=== PATIENT | male | born 1955 | race Caucasian/White ===

== ENCOUNTER → 2020-01-07 | Outpatient (CLI) | payer MEDICAID, SELFPAY ==
[2020-01-07 18:22] VITALS: BMI 27.4
[2020-01-07 21:46] LABS: Absolute Lymphocyte Count 1.33 X10^3/uL (0.83-4.51); Absolute Neutrophil Count 3.9 X10^3/uL (2.0-7.7); Basophil# 0.02 X10^3/uL; Basophil% 0.3 % (0-1); Eosinophil# 0.27 X10^3/uL; Eosinophils% 4.4 % (0-5); Hematocrit 39.6 % (40-54); Hemoglobin 13.4 g/dL (13.0-16.5); Lymphocyte # 1.33 X10^3/ul (4.0); Lymphocyte % 21.6 % (19-41); Mean Corp Hgb Conc 33.8 g/dL (32-36); Mean Corpuscular Hgb 31.1 pg (27.0-32.0); Mean Corpuscular Volume 91.9 fL (80-94); Mean Platelet Vol. 12.6 fl (6.2-12.0); Monocyte# 0.61 X10^3/uL; Monocyte% 9.9 % (0-10); NRBC Flagged by Analyzer 0 % (0-5); Neutrophil # 3.92 X10^3/uL (2.7-7.7); Neutrophil % 63.6 % (47-70); POSITIVE COUNT YES; Platelet Count 133 K/mm3 (150-450); RBC Distribution Width CV 12.8 % (11.6-14.6); RBC Distribution Width SD 42.8 fl (35.1-43.9); Red Blood Count 4.31 M/mm3 (4.6-6.2); White Blood Count 6.2 K/mm3 (4.4-11.0)
[2020-01-07 21:47] LABS: Differential Indicated SCAN CRITERIA MET
[2020-01-07 21:51] LABS: AST(SGOT) 26 U/L (15-37); Alanine Aminotransfer ALT/SGPT 56 U/L (16-61); Albumin, Serum 3.5 g/dL (3.2-5.0); Alkaline Phosphatase 90 U/L (45-117); Anion Gap 7 (5-15); BUN 16 mg/dL (7-18); BUN/Creat Ratio 11.9 RATIO (10-20); Calcium,Total 8.3 mg/dL (8.5-10.1); Chloride 108 mmol/L (98-107); Cholesterol 111 mg/dL (200); Creatinine, Serum 1.35 mg/dL (0.70-1.30); EST Glomerular Filtration Rate 56 mL/min (>60); Est Glom Filt Rate - Afr Amer 68 mL/min (>60); Globulin 3.6 g/dL (2.2-4.2); Glucose 120 mg/dL (74-106); High Density Lipoprotein 31 mg/dL; PSA,Total - Annual Screen 0.48 ng/mL (0.00-4.00); Potassium 3.7 mmol/L (3.5-5.1); Protein, Total 7.1 g/dL (6.4-8.2); Sodium Level 141 mmol/L (136-145); Triglycerides 252 mg/dL; Very Low Density Lipoprotein 50 mg/dL (5-40)
[2020-01-07 22:38] LABS: Platelet Estimate ADEQUATE (ADEQ)
== END | disposition home or self-care (01) ==
PROVIDERS: Visit Provider Nurse Practitioner
DX: I10 Essential (primary) hypertension (principal); R35.0 Frequency of micturition; G25.81 Restless legs syndrome; Z12.5 Encounter for screening for malignant neoplasm of prostate
CPT/HCPCS: 80053; 80061; 84153; 85025; G0103

== ENCOUNTER 2021-07-17 21:27 | Outpatient (CLI) | payer MEDICARE, MEDICAID, SELFPAY ==
[2021-07-17 21:41] LABS: Absolute Lymphocyte Count 1.96 X10^3/uL (0.83-4.51); Absolute Neutrophil Count 3.1 X10^3/uL (2.0-7.7); Basophil# 0.02 X10^3/uL; Basophil% 0.3 % (0-1); Eosinophil# 0.41 X10^3/uL; Eosinophils% 6.7 % (0-5); Hematocrit 43.3 % (40-54); Hemoglobin 14.8 g/dL (13.0-16.5); Lymphocyte # 1.96 X10^3/ul (0.83-4.51); Lymphocyte % 31.8 % (19-41); Mean Corp Hgb Conc 34.2 g/dL (32-36); Mean Corpuscular Hgb 31.2 pg (27.0-32.0); Mean Corpuscular Volume 91.4 fL (80-94); Mean Platelet Vol. 12.6 fl (6.2-12.0); Monocyte# 0.61 X10^3/uL; Monocyte% 9.9 % (0-10); NRBC Flagged by Analyzer 0 % (0-5); Neutrophil # 3.14 X10^3/uL (2.7-7.7); Platelet Count 131 K/mm3 (150-450); RBC Distribution Width CV 12.5 % (11.6-14.6); RBC Distribution Width SD 41.6 fl (35.1-43.9); Red Blood Count 4.74 M/mm3 (4.6-6.2); White Blood Count 6.2 K/mm3 (4.4-11.0)
[2021-07-17 21:59] LABS: AST(SGOT) 22 U/L (15-37); Alanine Aminotransfer ALT/SGPT 41 U/L (16-61); Albumin, Serum 3.6 g/dL (3.2-5.0); Alkaline Phosphatase 87 U/L (45-117); Anion Gap 6 (5-15); BUN 14 mg/dL (7-18); BUN/Creat Ratio 9.9 RATIO (10-20); Calcium,Total 8.6 mg/dL (8.5-10.1); Chloride 108 mmol/L (98-107); Cholesterol 125 mg/dL (200); Creatinine, Serum 1.41 mg/dL (0.70-1.30); EST Glomerular Filtration Rate 53 mL/min (>60); Est Glom Filt Rate - Afr Amer 65 mL/min (>60); Globulin 3.7 g/dL (2.2-4.2); Glucose 128 mg/dL (74-106); High Density Lipoprotein 35 mg/dL; PSA,Total - Annual Screen 0.51 ng/mL (0.00-4.00); Potassium 4.5 mmol/L (3.5-5.1); Protein, Total 7.3 g/dL (6.4-8.2); Sodium Level 141 mmol/L (136-145); Triglycerides 318 mg/dL; Very Low Density Lipoprotein 64 mg/dL (5-40)
== END 2021-07-17 23:59 | disposition short-term general hospital (02) ==
PROVIDERS: Visit Provider Nurse Practitioner
DX: I15.9 Secondary hypertension, unspecified (principal); R35.0 Frequency of micturition
CPT/HCPCS: 84153; 80053; 80061; 85025; G0103

== ENCOUNTER → 2022-06-14 | Outpatient (CLI) | payer MEDICARE, MEDICAID, SELFPAY ==
[2022-06-14 21:36] LABS: Absolute Lymphocyte Count 1.45 X10^3/uL (0.83-4.51); Absolute Neutrophil Count 3.1 X10^3/uL (2.0-7.7); Basophil# 0.02 X10^3/uL; Basophil% 0.4 % (0-1); Eosinophil# 0.23 X10^3/uL; Eosinophils% 4.3 % (0-5); Hematocrit 34.6 % (40-54); Hemoglobin 11.3 g/dL (13.0-16.5); Lymphocyte # 1.45 X10^3/ul (0.83-4.51); Lymphocyte % 27.3 % (19-41); Mean Corp Hgb Conc 32.7 g/dL (32-36); Mean Corpuscular Hgb 29.7 pg (27.0-32.0); Mean Corpuscular Volume 91.1 fL (80-94); Mean Platelet Vol. 12.2 fl (6.2-12.0); Monocyte% 9.4 % (0-10); NRBC Flagged by Analyzer 0 % (0-5); Neutrophil % 58.4 % (47-70); Platelet Count 135 K/mm3 (150-450); RBC Distribution Width CV 13.7 % (11.6-14.6); RBC Distribution Width SD 45.7 fl (35.1-43.9); White Blood Count 5.3 K/mm3 (4.4-11.0)
[2022-06-14 22:02] LABS: AST(SGOT) 19 U/L (15-37); Alanine Aminotransfer ALT/SGPT 35 U/L (16-61); Albumin, Serum 3.3 g/dL (3.2-5.0); Alkaline Phosphatase 76 U/L (45-117); Anion Gap 7 (5-15); BUN 15 mg/dL (7-18); BUN/Creat Ratio 9.9 RATIO (10-20); Calcium,Total 8.8 mg/dL (8.5-10.1); Chloride 109 mmol/L (98-107); Cholesterol 108 mg/dL (200); Creatinine, Serum 1.52 mg/dL (0.70-1.30); EST Glomerular Filtration Rate 49 mL/min (>60); Est Glom Filt Rate - Afr Amer 59 mL/min (>60); Globulin 3.2 g/dL (2.2-4.2); Glucose 139 mg/dL (74-106); High Density Lipoprotein 35 mg/dL; Potassium 3.9 mmol/L (3.5-5.1); Protein, Total 6.5 g/dL (6.4-8.2); Sodium Level 142 mmol/L (136-145); Triglycerides 262 mg/dL; Very Low Density Lipoprotein 52 mg/dL (5-40)
== END | disposition home or self-care (01) ==
PROVIDERS: Visit Provider Nurse Practitioner
DX: I10 Essential (primary) hypertension (principal); I48.91 Unspecified atrial fibrillation; E78.5 Hyperlipidemia, unspecified; J45.909 Unspecified asthma, uncomplicated; J11.1 Influenza due to unidentified influenza virus with other respiratory manifestations; R07.9 Chest pain, unspecified
CPT/HCPCS: 80053; 80061; 83735; 85025

== ENCOUNTER 2023-05-13 21:48 | Outpatient (CLI) | payer MEDICARE, SELFPAY ==
[2023-05-13 22:02] LABS: Absolute Lymphocyte Count 1.65 X10^3/uL (0.83-4.51); Absolute Neutrophil Count 3.5 X10^3/uL (2.0-7.7); Basophil# 0.03 X10^3/uL; Basophil% 0.5 % (0-1); Eosinophil# 0.32 X10^3/uL; Eosinophils% 5.2 % (0-5); Hematocrit 42.4 % (40-54); Hemoglobin 13.8 g/dL (13.0-16.5); Lymphocyte # 1.65 X10^3/ul (0.83-4.51); Lymphocyte % 26.9 % (19-41); Mean Corp Hgb Conc 32.5 g/dL (32-36); Mean Platelet Vol. 12.9 fl (6.2-12.0); Monocyte# 0.61 X10^3/uL; Monocyte% 9.9 % (0-10); NRBC Flagged by Analyzer 0 % (0-5); Neutrophil # 3.52 X10^3/uL (2.7-7.7); Neutrophil % 57.3 % (47-70); Platelet Count 124 K/mm3 (150-450); RBC Distribution Width CV 14.1 % (11.6-14.6); RBC Distribution Width SD 43.8 fl (35.1-43.9); Red Blood Count 4.93 M/mm3 (4.6-6.2); White Blood Count 6.1 K/mm3 (4.4-11.0)
[2023-05-13 22:26] LABS: ALB/GLOB Ratio 0.9 RATIO (0.9-2.4); AST(SGOT) 22 U/L (15-37); Alanine Aminotransfer ALT/SGPT 37 U/L (16-61); Albumin, Serum 3.5 g/dL (3.2-5.0); Alkaline Phosphatase 91 U/L (45-117); Anion Gap 6 (5-15); BUN 14 mg/dL (7-18); BUN/Creat Ratio 11.1 RATIO (10-20); Calcium,Total 8.4 mg/dL (8.5-10.1); Chloride 109 mmol/L (98-107); Cholesterol 93 mg/dL (200); Creatinine, Serum 1.26 mg/dL (0.70-1.30); EST Glomerular Filtration Rate 61 mL/min (>60); Est Glom Filt Rate - Afr Amer 73 mL/min (>60); Ferritin 13 ng/mL (26-388); Globulin 3.8 g/dL (2.2-4.2); Glucose 128 mg/dL (74-106); High Density Lipoprotein 37 mg/dL; Iron Binding Capacity,Total 337 ug/dL (250-450); PSA,Total - Annual Screen 0.54 ng/mL (0.00-4.00); Protein, Total 7.3 g/dL (6.4-8.2); Sodium Level 138 mmol/L (136-145); Thyroid Stim Hormone (TSH) 1.06 uIU/mL (0.358-3.74); Triglycerides 178 mg/dL; Very Low Density Lipoprotein 36 mg/dL (5-40)
[2023-05-14 08:22] LABS: Vitamin B12 629 pg/mL (211-911)
== END 2023-05-13 23:59 | disposition home or self-care (01) ==
PROVIDERS: PCP Nurse Practitioner; Visit Provider Nurse Practitioner
DX: Z12.5 Encounter for screening for malignant neoplasm of prostate (principal); I48.91 Unspecified atrial fibrillation; J11.1 Influenza due to unidentified influenza virus with other respiratory manifestations; E78.5 Hyperlipidemia, unspecified; I10 Essential (primary) hypertension; D64.9 Anemia, unspecified; R35.0 Frequency of micturition; R07.9 Chest pain, unspecified
CPT/HCPCS: 80053; 80061; 82607; 82728; 83550; 84153; 84443; 85025; G0103

== ENCOUNTER → 2023-08-22 | Outpatient (CLI) | payer MEDICARE, MEDICAID, SELFPAY ==
--- OUTSIDE RECORDS SUMMARY | 2023-08-22 23:01 | XMS RPT_ITS | CCD ---
Author Name Unknown Address [address] [place] [address] Organization [facility] Care Team Providers Care Fitness And Wellness Manager Name Role Phone Brittany Rodríguez Unavailable Unavailable PROVIDER, UNKNOWN Unavailable Unavailable Vero Green Unavailable Unavailable Marcelo Fritz MD Unavailable Norma ASSISTANT WOMEN'S TENNIS COACH.Vero BARROSO Primary Care Provide r VERO GREEN Primary Care Unavailable BRUCE CARROLL Admitting Unavailable DUSTIN HALE Attending Unavailable DOMINICK AVENDAÑO III UnavailMICAELA Velazquez Attending Unavailable MARIA EUGENIA GREENA Sheela Primary Care Unavailable DAVID ZENDEJAS Attending Unavailable MARIA EUGENIA GREENA Sheela Primary Care Unavailable NORMA VERO Sheela Primary Care Unavailable ALVA GARCIA Attending Unavailduarte reese Allergies Allergy Classification Reported Allergen(s) Allergy Type Date of Onset Reaction(s) Facility (5 sources) Clindamycin; Translations: [CLINDAMYCIN] Drug Allergy 12-25-2022 Shortness of Breath [facility] (5 sources) HYDROmorphone; Translations: [HYDROMORPHONE (BULK)] Drug Allergy 06-15-2017 Shortness of Breath [facility] Work Phone: (5 sources) Lisinopril; Translations: [LISINOPRIL] Drug Allergy 01-06-2020 Cough [facility] Work Phone: Medications Current Medications Medication Drug Class(es) Dates Sig (Normalized) Sig (Original) cefdinir 300 mg oral capsule (1 source) Cephalosporin Antibacterial Start: 12-29-2022 End: 01-12-2023 take 1 capsule by mouth twice daily cefdinir (OMNICEF) 300 mg capsule Take 1 capsule by mouth twice daily for 14 days. 28 capsule 0 12/29/2022 01/12/2023 Active Completed/Discontinued Medications Medication Drug Class(es) Dates Sig (Normalized) Sig (Original) acetaminophen 325 mg oral tablet (2 sources) Start: 12-29-2022 take 2 tablets by mouth every six hours as needed acetaminophen (TYLENOL) 325 mg tablet Take 2 tablets by mouth every 6 hours as needed for pain. 0 12/29/2022 Active Problems Active Problems Problem Classification Problem Date Documented Date Episodic/Chronic Acute myocardial infarction (3 sources) Myocardial infarction; Translations: [ST elevation (STEMI) myocardial infarction of unspecified site] Onset: 11-21-2019 02-10-2020 Chronic Allergic reactions (1 source) Allergy, unspecified, initial encounter; Translations: [Allergic reaction, initial encounter] Onset: 12-25-2022 Episodic Asthma (6 sources) Exacerbation of intermittent asthma; Translations: [Mild intermittent asthma with (acute) exacerbation] Onset: 06-14-2017 06-25-2017 Chronic Cardiac dysrhythmias (6 sources) Atrial flutter; Translations: [Unspecified atrial flutter] Onset: 06-25-2017 08-19-2017 Chronic Complication of device; implant or graft (3 sources) Altered bowel function; Translations: [Other complications of enterostomy] Onset: 08-20-2017 08-24-2017 Chronic Disorders of lipid metabolism (3 sources) Pure hypercholesterolemia; Translations: [Pure hypercholesterolemia, unspecified] Onset: 11-25-2019 02-10-2020 Chronic Diverticulosis and diverticulitis (3 sources) Diverticulitis of large intestine; Translations: [Diverticulitis of large intestine without perforation or abscess without bleeding] Onset: 06-14-2017 08-20-2017 Chronic Inflammatory conditions of male genital organs (5 sources) Abscess of scrotum; Translations: [Inflammatory disorders of scrotum] Onset: 12-25-2022 01-14-2023 Episodic Nutritional deficiencies (3 sources) Deficiency of macronutrients; Translations: [Unspecified severe protein-calorie malnutrition] Onset: 07-30-2017 08-20-2017 Chronic Other connective tissue disease (3 sources) Necrotizing fasciitis; Translations: [Necrotizing fasciitis] Onset: 12-26-2022 12-26-2022 Episodic Other connective tissue disease (1 source) Necrotizing fasciitis; Translations: [Necrotizing fasciitis (HCC)] Onset: 12-26-2022 Episodic Other connective tissue disease (1 source) Other specified soft tissue disorders; Translations: [Necrotizing soft tissue infection] Onset: 12-26-2022 Episodic Other lower respiratory disease (1 source) Wheezing; Translations: [Wheezing] Onset: 12-25-2022 Episodic Other upper respiratory disease (1 source) Acute bronchospasm; Translations: [Bronchospasm] Onset: 12-25-2022 Episodic Spondylosis; intervertebral disc disorders; other back problems (2 sources) Spondylosis, unspecified; Translations: [Spondylosis, unspecified] Onset: 06-11-2017 Chronic Substance-related disorders (5 sources) Nicotine dependence, cigarettes, uncomplicated; Translations: [Nicotine dependence] Onset: 06-11-2017 08-19-2017 Chronic Unclassified (2 sources) Acute pancreatitis without necrosis or infection, unspecified; Translations: [Acute pancreatitis without necrosis or infection, unsp] Onset: 06-11-2017 Past or Other Problems Problem Classification Problem Date Documented Da te Episodic/Chronic Acute and unspecified renal failure (3 sources) Acute injury of kidney; Translations: [Acute kidney failure, unspecified] Onset: 8 08-19-2017 Episodic Anal and rectal conditions (3 sources) Rectal pain; Translations: [Other specified diseases of anus and rectum] Onset: 7 06-26-2017 Episodic Biliary tract disease (3 sources) Recurrent biliary colic; Translations: [Calculus of bile duct without cholangitis or cholecystitis without obstruction] Onset: 8 08-22-2017 Episodic Deficiency and other anemia (3 sources) Anemia; Translations: [Anemia, unspecified] Onset: 8 08-30-2017 Episodic Diabetes mellitus without complication (6 sources) Hyperglycemia; Translations: [Hyperglycemia, unspecified] Onset: 8 08-24-2017 Episodic Fluid and electrolyte disorders (6 sources) Dehydration; Translations: [Dehydration] Onset: 8 07-30-2017 Episodic Gastrointestinal hemorrhage (6 sources) Gastrointestinal hemorrhage, unspecified; Translations: [Hematemesis] Onset: 7 Episodic Mycoses (3 sources) Candidiasis of mouth and esophagus; Translations: [Candidal esophagitis] Onset: 8 07-25-2017 Episodic Other screening for suspected conditions (not mental disorders or infectious disease) (3 sources) Other specified abnormal findings of blood chemistry; Translations: [Other abnormal blood chemistry] Onset: 8 08-19-2017 Episodic Residual codes; unclassified (3 sources) Tobacco user; Translations: [Tobacco use] Onset: 0 11-23-2019 Episodic Viral infection (3 sources) Herpes simplex; Translations: [Herpesviral infection, unspecified] Onset: 8 08-03-2017 Episodic Results Test Name Value Interpretation Reference Range Facil ity Vital Signs Date Time Vital Sign Value Performing Clinician Yana steward 01-14-2023 11:06-0400 Body height 185.4 cm David Zendejas MD Work Phone: [facility] 01-14-2023 11:06-0400 Diastolic blood pressure 77 mm[Hg] David Zendejas MD Work Phone: [facility] 01-14-2023 11:06-0400 Respiratory rate 18 /min David Zendejas MD Work Phone: [facility] 01-14-2023 11:06-0400 Systolic blood pressure 132 mm[Hg] David Zendejas MD Work Phone: [facility] Encounters Encounter Date Encounter Type Care Provider Facility Start: 01-14-2023 End: 01-14-2023 ambulatory DAVID ZENDEJAS Facility:[facility] Start: 01-14-2023 End: 01-14-2023 Patient encounter procedure David Zendejas MD Work Phone: [facility] Plan of Treatment Date Care Activity Detail Author Start: 12-29-2025 DIABETES SCREEN DIABETES SCREEN [facility] Start: 12-28-2025 DIABETES SCREEN DIABETES SCREEN [facility] Start: 11-20-2024 LIPID SCREEN LIPID SCREEN [facility] Start: 03-01-2023 Influenza vaccination C [facility] Start: 08-21-2022 COLORECTAL CANCER SCREENING COLORECTAL CANCER SCREENING [facility] Start: 08-21-2022 SIGMOIDOSCOPY SIGMOIDOSCOPY [facility] Start: 07-01-2022 ADVANCE DIRECTIVE DISCUSSION ADVANCE DIRECTIVE DISCUSSION [facility] Start: 07-01-2022 DEPRESSION ASSESSMENT DEPRESSION ASS ESSMENT [facility] Start: 2010 PROSTATE CANCER SCRE ENING DISCUSSION PROSTATE CANCER SCREENING DISCUSSION [facility] Start: 2005 SHINGRIX VACCINE (1 of 2) SHINGRIX V ACCINE (1 of 2) [facility] Start: 2000 COLOGUARD (FIT-DNA) COLOGUARD (FIT-D NA) [facility] Start: 2000 Colonoscopy COLONOSCOPY [facility] Start: [address] COLONOGRAPHY [facility] Start: 2000 FECAL OCCULT BLOOD FECAL OCCULT BLOO D [facility] Start: 1974 Urine microalbumin profile DTAP,TDAP ,TD (1 - Tdap) [facility] Start: 1973 ANNUAL PCP TEAM SUPERVISOR CEREAL JACY DISEASE VISIT ANNUAL PCP TEAM CHRONIC DISEASE VISIT [facility] Start: 1973 SPIROMETRY SPIROMETRY [facility] Start: 1961 PNEUMOCOCCAL: 65+ (1 - PCV) PNEUMOCOCCAL: 65+ (1 - PCV) [facility] Start: 1955 COVID-19 VACCINE (#1) COVID-19 VACCI NE (#1) [facility] Start: 1955 ABDOMINAL AORTIC ANE URYSM SCREENING ABDOMINAL AORTIC ANEURYSM SCREENING [facility] Payers Date Payer Category Payer Medicare [facility] MEDICARE [facility] DUAL COMPLETE HMO POS SNP [id number] 2022-Present [phone] [address] [place] [address] Medicare [id number] 2022 Unknown [id number] 2020 Medicaid MEDICAID [facility] MEDICAID [id number] 2020-Present [phone] [address] [place] [address] Medicaid [id number] Self-pay Social History Date Type Detail Facility Start: [facility]-04-2021 [facility] Work Phone: History of tobacco use Cigarette Smoker C [facility] Work Phone: Start: 01-04-2021 End: 12-26-2022 Cigarettes smoked current (pack per day) - Reported 0.1 [facility] Work Phone: Start: 01-04-2021 Tobacco use and exposure Smokeless tobacco non-user [facility] Work Phone: Start: 12-26-2022 End: 01-14-2023 Alcohol intake Current non-drinker of alcohol (finding) [facility] Start: 11-24-2019 History SDOH Financial 5 [facility] Start: 07-05-2017 Tobacco [facility] Start: 1955 Sex Assigned At Male C [facility] Start: 12-26-2022 End: 01-14-2023 Tobacco use panel [facility] Work Phone: How hard is it for y ou to pay for the very basics like food, housing, medical care, and heating Not hard at all [facility] Work Phone: (I/We) worried whe er (my/our) food would run out before (I/we) got money to buy more. DK or Refused [facility] Work Phone: Clinical Notes 08-20-2017 to 01-14-2023 David Zendejas MD - 01/14/2023 11:15 AM EDTTelephone Encounter - Arely Durán Coord - 01/02/2023 10:07 AM EDTTelephone Encounter - Arely Durán Coord - 01/02/2023 9:50 AM EDT Note Date & Type Note Facility 01-14-2023 Note HNO ID: [id number] Author: David Zendejas MD Service: ? Author Type: Physician Type: Progress Notes Filed: 01/14/2023 11:26 AM Note Text: [facility] ESTABLISHED PATIENT NOTE PATIENT: Teofilo Maxwell (67 year old) PCP: Vero Green APRN.ADVISORY SERVICES ASSOCIATE DATE OF SERVICE: 01/14/2023 ASSESSMENT: 1. Scrotal abscess - ICD9: 608.4, ICD10: N49.2 Surgery/Procedure Date: 12/26/2022 Procedure(s): Excisional debridement scrotal necrotizing fasciitis and drainage scrotal abscess PLAN: Drains are out. Wound closing. No necrosis, eschar or fluctuance. They are having trouble keeping packing as the wound is closing. Discussed findings. Okay to move to BID topical gauze dressing changes. We discussed concerning signs and symptoms and patient knows to report these immediately. If unable to reach their urologist, patient knows to report to emergency department for evaluation. Follow up as needed. FOLLOW UP: No follow-ups on file. CHIEF COMPLAINT: Patient presents with: scrotal abcess HISTORY OF PRESENT ILLNESS: Prior notes were reviewed. The patient reports he feels well. He states the packing has been falling out. No fevers. REVIEW OF SYSTEMS: Genitourinary: Denies hematuria, dysuria, frequency, urgency, nocturia, YO, weak stream. Constitutional: unintentional weight loss - denies, fevers - denies Cardiovascular: new or worsening chest pain - denies Respiratory: new or worsening shortness of breath - denies Gastrointestinal: constipation - denies, vomiting - denies Hematologic/Lymphatic: easy bleeding or bruising - denies ALLERGIES: ALLERGIES Allergen Reactions Clindamycin Shortness of Breath Dilaudid [Hydromorp* Shortness of Breath Lisinopril Cough MEDICATIONS: Non-Adherent Bandage (CURITY ABDOMINAL PAD) 5 X 9 bndg Apply 1 application to affected area twice daily. Gauze Bandage (KERLIX) 2 1/4 X 3 -yard bndg Apply 1 application to affected area twice daily. Sodium Chloride 0.9 % soln 1 Units twice daily. Scrotum- cleanse area with N.S. or wound cleanser prior to dressing change. Pack open wounds with N.S. soaked kerlix and cover with ABD pads twice daily . then use mesh pants to hold dressing in place twice daily and as needed for soiling. acetaminophen (TYLENOL) 325 mg tablet Take 2 tablets by mouth every 6 hours as needed for pain. apixaban (ELIQUIS) 5 mg tab(s) Take 1 tablet by mouth twice daily. rOPINIRole (REQUIP) 1 mg tablet Take 1 mg by mouth every evening. Cyanocobalamin 1,000 mcg TbER Take by mouth once daily. Lactobac no.41/Bifidobact no.7 (PROBIOTIC-10 ORAL) Take by mouth once daily. metoprolol succinate ER (TOPROL XL) 25 mg 24 hr tablet Take 1 tablet by mouth once daily. atorvastatin (LIPITOR) 80 mg tablet Take 1 tablet by mouth once daily. albuterol HFA (PROVENTIL HFA, VENTOLIN HFA) 90 mcg/actuation inhaler Inhale 2 Puffs as instructed every 4 hours as needed for wheezing/shortness of breath. psyllium husk, with sugar, (METAMUCIL) 3.4 gram packet Take 1 Packet by mouth every evening. [DISCONTINUED] nicotine (NICODERM) 14 mg/24 hr Apply 1 Patch as directed once daily. PAST HISTORY: PAST MEDICAL HISTORY Diagnosis Date Asthma Diverticulitis of intestine with perforation 06/19/2017 H/O heart artery stent HLD (hyperlipidemia) Paroxysmal A-fib (HCC) RLS (restless legs syndrome) STEMI (ST elevation myocardial infarction) ([facility]) PAST SURGICAL HISTORY Procedure Laterality Date PAST SURGICAL HISTORY OF 06/19/2017 laparoscopic sigmoid resection, (Dr. Isaac) PAST SURGICAL HISTORY OF OM3 lesion was stented using a 2.5X23 Xience megha and Proximal LCx was stented using a 3X18 Xience megha on 11/21/2019. FAMILY HISTORY Problem Relation Age of Onset Heart Mother Kidney Disease Mother other (heart attack at age 67) Mother other (valve replacement) Mother other (unknown history) Father Social History Tobacco Use Smoking status: Every Day Packs/day: 0.10 Types: Cigarettes Smokeless tobacco: Never Tobacco comments: quit in [facility] home Vaping Use Vaping Use: Never used Substance Use Topics Alcohol use: No Drug use: Not Currently Types: Marijuana PHYSICAL EXAMINATION: BP 132/77 Resp 18 Ht 185.4 cm (6' 1 ) BMI 28.04 kg/m? Genitourinary: Posterior scrotal surgical wound. No necrosis, eschar or fluctuance. Healthy, viable healing tissue with only 1 cm of wound depth. Constitutional: In no acute distress. Well appearing. Respiratory: Normal respiratory effort without use of accessory muscles. Musculoskeletal: Normal gait and station Cardiovascular: Regular rate Gastrointestinal: Nondistended DATA: Clinic: URINALYSIS: No results found for this basename: uglucpoc,ubilipoc,uketonpoc,usgp oc,uhbpoc,uphpoc,upropoc,uuropoc ,unitpoc,uw bcpoc,ucolpoc,uclarpoc Laboratory: Creatinine Date Value Ref Range Status 12/29/2022 1.21 0.73 - 1.22 m (more content not included)... [facility] 01-14-2023 History of Presen t illness Narrative [facility] ESTABLISHED PATIENT NOTE PATIENT: Teofilo Maxwell (67 year old) PCP: Vero Green APRN.ADVISORY SERVICES ASSOCIATE DATE OF SERVICE: 01/14/2023 ASSESSMENT: 1. Scrotal abscess - ICD9: 608.4, ICD10: N49.2 Surgery/Procedure Date: 12/26/2022 Procedure(s): Excisional debridement scrotal necrotizing fasciitis and drainage scrotal abscess PLAN: Drains are out. Wound closing. No necrosis, eschar or fluctuance. They are having trouble keeping packing as the wound is closing. Discussed findings. Okay to move to BID topical gauze dressing changes. We discussed concerning signs and symptoms and patient knows to report these immediately. If unable to reach their urologist, patient knows to report to emergency department for evaluation. Follow up as needed. FOLLOW UP: No follow-ups on file. CHIEF COMPLAINT: Patient presents with: scrotal abcess HISTORY OF PRESENT ILLNESS: Prior notes were reviewed. The patient reports he feels well. He states the packing has been falling out. No fevers. REVIEW OF SYSTEMS: Genitourinary: Denies hematuria, dysuria, frequency, urgency, nocturia, YO, weak stream. Constitutional: unintentional weight loss - denies, fevers - denies Cardiovascular: new or worsening chest pain - denies Respiratory: new or worsening shortness of breath - denies Gastrointestinal: constipation - denies, vomiting - denies Hematologic/Lymphatic: easy bleeding or bruising - denies ALLERGIES: ALLERGIES Allergen Reactions Clindamycin Shortness of Breath Dilaudid [Hydromorp* Shortness of Breath Lisinopril Cough MEDICATIONS: Non-Adherent Bandage (CURITY ABDOMINAL PAD) 5 X 9 bndg Apply 1 application to affected area twice daily. Gauze Bandage (KERLIX) 2 1/4 X 3 -yard bndg Apply 1 application to affected area twice daily. Sodium Chloride 0.9 % soln 1 Units twice daily. Scrotum- cleanse area with N.S. or wound cleanser prior to dressing change. Pack open wounds with N.S. soaked kerlix and cover with ABD pads twice daily . then use mesh pants to hold dressing in place twice daily and as needed for soiling. acetaminophen (TYLENOL) 325 mg tablet Take 2 tablets by mouth every 6 hours as needed for pain. apixaban (ELIQUIS) 5 mg tab(s) Take 1 tablet by mouth twice daily. rOPINIRole (REQUIP) 1 mg tablet Take 1 mg by mouth every evening. Cyanocobalamin 1,000 mcg TbER Take by mouth once daily. Lactobac no.41/Bifidobact no.7 (PROBIOTIC-10 ORAL) Take by mouth once daily. metoprolol succinate ER (TOPROL XL) 25 mg 24 hr tablet Take 1 tablet by mouth once daily. atorvastatin (LIPITOR) 80 mg tablet Take 1 tablet by mouth once daily. albuterol HFA (PROVENTIL HFA, VENTOLIN HFA) 90 mcg/actuation inhaler Inhale 2 Puffs as instructed every 4 hours as needed for wheezing/shortness of breath. psyllium husk, with sugar, (METAMUCIL) 3.4 gram packet Take 1 Packet by mouth every evening. [DISCONTINUED] nicotine (NICODERM) 14 mg/24 hr Apply 1 Patch as directed once daily. PAST HISTORY: PAST MEDICAL HISTORY Diagnosis Date Asthma Diverticulitis of intestine with perforation 06/19/2017 H/O heart artery stent HLD (hyperlipidemia) Paroxysmal A-fib (HCC) RLS (restless legs syndrome) STEMI (ST elevation myocardial infarction) ([facility]) PAST SURGICAL HISTORY Procedure Laterality Date PAST SURGICAL HISTORY OF 06/19/2017 laparoscopic sigmoid resection, (Dr. Isaac) PAST SURGICAL HISTORY OF OM3 lesion was stented using a 2.5X23 Xience megha and Proximal LCx was stented using a 3X18 Xience megha on 11/21/2019. FAMILY HISTORY Problem Relation Age of Onset Heart Mother Kidney Disease Mother other (heart attack at age 67) Mother other (valve replacement) Mother other (unknown history) Father Social History Tobacco Use Smoking status: Every Day Packs/day: 0.10 Types: Cigarettes Smokeless tobacco: Never Tobacco comments: quit in [facility] home Vaping Use Vaping Use: Never used Substance Use Topics Alcohol use: No Drug use: Not Currently Types: Marijuana PHYSICAL EXAMINATION: BP 132/77 Resp 18 Ht 185.4 cm (6' 1 ) BMI 28.04 kg/m Genitourinary: Posterior scrotal surgical wound. No necrosis, eschar or fluctuance. Healthy, viable healing tissue with only 1 cm of wound depth. Constitutional: In no acute distress. Well appearing. Respiratory: Normal respiratory effort without use of accessory muscles. Musculoskeletal: Normal gait and station Cardiovascular: Regular rate Gastrointestinal: Nondistended DATA: Clinic: URINALYSIS: No results found for this basename: uglucpoc,ubilipoc,uketonpoc,usgp oc,uhbpoc,uphpoc,upropoc,uuropoc ,unitpoc,uwbcpoc,ucolpoc,uclarpo c Laboratory: Creatinine Date Value Ref Range Status 12/29/2022 1.21 0.73 - 1.22 mg/dL Final 12/28/2022 1.38 (H) 0.73 - 1.22 mg/dL Final 12/27/2022 1.24 (H) 0.73 - 1.22 mg/dL Final 12/25/2022 1.41 (H) 0.73 - 1.22 mg/dL Final Cultures: Culture Results - Past 1 Year CULTURE SMEAR RESULT 12/25/2022 No growth 5 days - 12/25/2022 No growth 5 days - 12/26/2022 - Many Gram positive bacilli(A) 12/26/2022 - Moderate Gram positive cocci(A) 12/26/2022 - Moderate Gram negative bacilli(A) 12/26/2022 - Few Polymorphonuclear leukocytes(A) 12/26/2022 - Moderate Red Blood Cells(A) Some recent data might be hidden Susceptibility Tests - Past 1 Year No results found for the last 365 days. I have reviewed the problem list, family history, and social history documented by my ancillary staff. David Zendejas MD Staff Urologist documented in this encounter [facility] 01-04-2023 Note HNO ID: [id number] Author: Micaela Vee PA-C Service: ? Author Type: Physician Airline Lounge Receptionist Type: Progress Notes Filed: 01/04/2023 11:39 AM Note Text: ESTABLISHED PATIENT OFFICE VISIT HISTORY OF PRESENT ILLNESS: Teofilo Maxwell is a 67 year old male, Ht 185.4 cm (6' 1 ) BMI 28.04 kg/m2 with a PMH significant for drain removal. Pt is s/p scrotal debridement secondary to necrotizng fascitis. Pt is still on antibiotics, tolerating them well. is doing packing of wound. . LAB: Creatinine Date Value Ref Range Status 12/29/2022 1.21 0.73 - 1.22 mg/dL Final No results found for: PSA Glucose, Urine (mg/dL) Date Value 11/22/2019 1+ Bilirubin, Urine (no units) Date Value 11/22/2019 Negative Ketones, Urine (no units) Date Value 11/22/2019 Trace Specific Ridge, Ur (no units) Date Value 11/22/2019 >1.045 Hemoglobin/Blood,Ur ( ) Date Value 11/22/2019 Negative pH, Urine (no units) Date Value 11/22/2019 5.0 Protein, Urine (no units) Date Value 11/22/2019 1+ Nitrites (no units) Date Value 11/22/2019 Negative WBC, Urine (/HPF) Date Value 11/22/2019 0-5 MEDICATIONS: Non-Adherent Bandage (CURITY ABDOMINAL PAD) 5 X 9 bndg Apply 1 application to affected area twice daily. Gauze Bandage (KERLIX) 2 1/4 X 3 -yard bndg Apply 1 application to affected area twice daily. Sodium Chloride 0.9 % soln 1 Units twice daily. Scrotum- cleanse area with N.S. or wound cleanser prior to dressing change. Pack open wounds with N.S. soaked kerlix and cover with ABD pads twice daily . then use mesh pants to hold dressing in place twice daily and as needed for soiling. acetaminophen (TYLENOL) 325 mg tablet Take 2 tablets by mouth every 6 hours as needed for pain. apixaban (ELIQUIS) 5 mg tab(s) Take 1 tablet by mouth twice daily. metroNIDAZOLE (FLAGYL) 500 mg tablet Take 1 tablet by mouth every 8 hours for 14 days. cefdinir (OMNICEF) 300 mg capsule Take 1 capsule by mouth twice daily for 14 days. rOPINIRole (REQUIP) 1 mg tablet Take 1 mg by mouth every evening. Cyanocobalamin 1,000 mcg TbER Take by mouth once daily. Lactobac no.41/Bifidobact no.7 (PROBIOTIC-10 ORAL) Take by mouth once daily. atorvastatin (LIPITOR) 80 mg tablet Take 1 tablet by mouth once daily. albuterol HFA (PROVENTIL HFA, VENTOLIN HFA) 90 mcg/actuation inhaler Inhale 2 Puffs as instructed every 4 hours as needed for wheezing/shortness of breath. psyllium husk, with sugar, (METAMUCIL) 3.4 gram packet Take 1 Packet by mouth every evening. oxyCODONE-acetaminophen (PERCOCET) 5-325 mg tablet Take 1 tablet by mouth every 8 hours as needed for pain for up to 7 days. metoprolol succinate ER (TOPROL XL) 25 mg 24 hr tablet Take 1 tablet by mouth once daily. [DISCONTINUED] nicotine (NICODERM) 14 mg/24 hr Apply 1 Patch as directed once daily. Bifidobacterium Infantis (ALIGN) 4 mg cap Take by mouth. Review of Systems HISTORIES PAST MEDICAL HISTORY Diagnosis Date Asthma Diverticulitis of intestine with perforation 06/19/2017 H/O heart artery stent HLD (hyperlipidemia) Paroxysmal A-fib (HCC) RLS (restless legs syndrome) STEMI (ST elevation myocardial infarction) ([facility]) FAMILY HISTORY Problem Relation Age of Onset Heart Mother Kidney Disease Mother other (heart attack at age 67) Mother other (valve replacement) Mother other (unknown history) Father Social History Tobacco Use Smoking status: Every Day Packs/day: 0.10 Types: Cigarettes Smokeless tobacco: Never Tobacco comments: quit in [facility] and home Vaping Use Vaping Use: Never used Substance Use Topics Alcohol use: No Drug use: Not Currently Types: Marijuana PHYSICAL EXAMINATION GENERAL APPEARANCE: Well appearing, alert, in no acute distress, well-hydrated, well nourished. Genitourinary: MALE EXAM: drain removal, wounds cleansed with aneseptic, sutures removed, drains removed, wounds packed with 4x4 soaked in sterile water, pt tolerated procedure well. ASSESSMENT/PLAN: 1. Necrotizing fasciitis (HCC) - ICD9: 728.86, ICD10: M72.6 - OXYCODONE-ACETAMINOPHEN 5 MG-325 MG TABLET Drains removed Complete antibiotics as directed Follow up with dr. Sy Vee PA-C I spent a total of 20 minutes on the date of the service which included preparing to see the patient, [id number] patient care, completing clinical documentation, performing a medically appropriate examination, counseling and educating the patient/family/caregiver, and ordering medications, tests, or procedures. [facility] 01-02-2023 Miscellaneous Notes Spoke with patients , appt for this Saturday for drain removal, and follow up on 01/[address] Zendejas. They are aware of all Arely Briggs Patient called to [facility] follow up for scrotal abscess with you. Your first available is not till 01/14/2023. How soon do you need to see patient? Arely Briggs documented in this encounter [facility] 12-29-2022 Note HNO ID: [id number] Author: Shazia Singh RN Service: Care Management Author Type: Registered Nurse Type: Care Mgt Progress Note Filed: 12/29/2022 11:12 AM Note Text: CARE MANAGEMENT PROGRESS NOTE SERVICE DATE: 12/29/2022 SERVICE TIME: 10:23 AM LOS: 3 days IMM Follow Up Copy Given: Yes Copy given to:: Patient Environmental Remediation Consultant Environmental Remediation Consultant Name/Relationship: Reyna Maxwell/ Spouse Method: By Phone (Verbal confirmation obtained) SIGNATURE: Shazia Singh RN PATIENT NAME: Teofilo Maxwell DATE: December 29, 2022 TIME: 11:12 AM PAGER/CONTACT #: [phone] [facility] 12-29-2022 Note HNO ID: [id number] Author: Shazia Singh RN Service: Care Management Author Type: Registered Nurse Type: Care Mgt Progress Note Filed: 12/29/2022 11:11 AM Note Text: CARE MANAGEMENT DISCHARGE NOTE SERVICE DATE: December 29, 2022 SERVICE TIME: 11:04 AM Admission Date: 12/26/2022 LOS: 3 days Discharge Arrangement Discharge Arrangement: Home with Relative Caregiver Assessment Caregiver is ready, willing and able to meet the patient's needs as recommended by the inter-professional team: Yes; See below. Transportation Arrangements Transportation Arrangements: Car; Patient has discharge transportation available. Handoff Communication: Handoff to: Other Caregiver Other Caregiver Name/Phone: Bedside RN to give patient discharge instructions Discharge orders complete. Patient discharged to home this morning. Spoke with patient's spouse Reyna via phone ([phone]). Explained care management role. Plan is for patient to return home on oral antibiotics. Discussed wound care, education and supplies. At this time, patient's spouse adamantly declines need for any skilled home health care services after discharge. Patient's spouse reports that she is willing/ able to care for him as needed including providing wound and drain care. Bedside RN instructed on home going care needs and wound care supplies provided. At this time, no additional transitional/discharge planning needs identified. SIGNATURE: Shazia Singh RN PATIENT NAME: Teofilo Maxwell DATE: December 29, 2022 TIME: 11:04 AM CONTACT #: [id number] [facility] 12-29-2022 Note HNO ID: [id number] Author: Dustin Hale DO Service: Hospital Medicine Author Type: Physician Type: Progress Notes Filed: 12/29/2022 8:08 AM Note Text: DEPARTMENT OF HOSPITAL MEDICINE PROGRESS NOTE SERVICE DATE: 12/29/2022 SERVICE TIME: 7:58 AM Hospital Medicine/Primary Attending: Dustin Hale DO NIGHT AND WEEKEND COVERAGE: After 7pm please page [phone] CHIEF COMPLAINT: Follow up on MMP SUBJECTIVE: Pt seen and examined. States that he feels pretty good today. Ready to go home OBJECTIVE: PHYSICAL EXAM: BP 151/91 Pulse 83 Temp (Src) 98.1 (Oral) Resp 18 Ht 6' 1 (1.85m) Wt 212 lb 8 oz (96.4kg) SpO2 95% BMI 28.04 kg/(m2). O2 Therapy: Room Air General - AANDOx3, NAD, Calm CV - RRR S1 S2, No M/R/G RESP - CTA B/L No wheezes, ronchi, rales ABD - soft, NT, ND +BS EXT - no gross joint deformity, no clubbing, cyanosis, edema NEURO - CN II-XII grossly intact, no focal deficits MEDICATIONS: Current Facility-Administered Medications Medication Dose Route Frequency albuterol HFA 90 mcg/actuation 2 Puff (PROVENTIL HFA, VENTOLIN HFA) 2 Puff INHALATION q 4 H PRN NaCl 0.9% iv flush bag 20 mL INTRAVENOUS PRN aluminum-magnesium hydroxide-simethicone 200-200-20 mg/5 mL 30 mL 30 mL ORAL q 6 H PRN ondansetron 4 mg tab(s) (ZOFRAN) 4 mg ORAL q 6 H PRN Or ondansetron (PF) 4 mg injection (ZOFRAN) 4 mg INTRAVENOUS q 6 H PRN polyethylene glycol 3350 17 g packet 17 g ORAL DAILY PRN metoprolol tartrate (short acting) 12.5 mg tab(s) (LOPRESSOR) 12.5 mg ORAL q 12 H rOPINIRole 1 mg tab(s) (REQUIP) 1 mg ORAL AT BEDTIME atorvastatin 80 mg tab(s) (LIPITOR) 80 mg ORAL AT BEDTIME acetaminophen 650 mg tab(s) (TYLENOL) 650 mg ORAL q 6 H PRN morphine 4 mg injection 4 mg INTRAVENOUS q 3 H PRN oxyCODONE IR 5-10 mg tab(s) (ROXICODONE) 5-10 mg ORAL q 4 H PRN [START ON 01/02/2023] apixaban 5 mg tab(s) (ELIQUIS) 5 mg ORAL BID cefTRIAXone iv piggyback 2 g in dextrose (iso-osmotic) 50 mL (ROCEPHIN) 2 g INTRAVENOUS q 24 H metroNIDAZOLE 500 mg tab(s) (FLAGYL) 500 mg ORAL q 8 H DATA: Diagnostic tests reviewed for today's visit: CBC: Recent Labs 12/29/22 0507 WBC 5.83 RBC 3.82* HB 11.6* HCT 33.6* PLT 232 MCV 88.0 MCH 30.4 MPV 10.8 Coags: No results for input(s): PT, INR, APTT in the last 24 hours. BMP: Recent Labs 12/29/22 0507 NA 138 CHLOR 103 CO2 25 BUN 14 CREAT 1.21 GLUC 130* CMP: Recent Labs 12/29/22 0507 NA 138 CHLOR 103 CO2 25 BUN 14 CREAT 1.21 GLUC 130* CA 9.0 ANION 10 Cardiac Enzymes: No results for input(s): CK, MB, CKMB, TROPT in the last 24 hours. Liver Function, Amylase, Lipase: No results for input(s): TPROT, ALB, ALT, AST, ALKPHOS, TBILI, AMYLASE, LIPASE, LACTATE in the last 24 hours. MG/PHOS: No results for input(s): MG, P in the last 24 hours. Renal Panel: Recent Labs 12/29/22 0507 CREAT 1.21 BUN 14 GLUC 130* CA 9.0 CHLOR 103 CO2 25 NA 138 Heme: No results for input(s): RETICP, ABSRETIC, LD, TIRSO, FE, TIBC, TRANSFERSAT in the last 24 hours. No results found for: UALBCR Estimated Creatinine Clearance: 72.5 mL/min (based on SCr of 1.21 mg/dL). Most recent labs and radiology results reviewed. Assessment/Plan POD # 3 s/p IANDD of Mer's gangrene with sepsis that was treated- ID recommendations for 14 days of cefednir and flagyl. Follow up with urology in 1 week. Discussed with urology Allergic reaction - to clinda. Resolved. Listed as allergy at this time. Hyperlipidemia - cont with atorvastatin 80mg daily Parox atrial fib- currently NSR at this time. Restart eliquis january 02. Hold for now due to bloody drainage CAD- cont home meds FREDI - vs some CKD - seems to fluctuate. DC home Medication and Non-Pharmacologic VTE Prophylaxis/Anticoagulants Anticoagulant AND Antiplatelet Medications (From admission, onward) Start Dose Route Frequency Last Action Ordered Stop 01/02/23 0900 apixaban 5 mg tab(s) (ELIQUIS) (apixaban tab(s) (ELIQUIS)) 5 mg ORAL 2 TIMES DAILY Ordered 12/28/22 0937 -- 12/27/22 1000 pneumatic compression stockings (ca,oh) Lines, Drains, and Airways Line Duration Peripheral 12/25/22 [facility] Short Right Forearm 20 Gauge 4 days Peripheral 12/26/22 [facility] Short Left Hand 20 Gauge 3 days Drain Duration Drain/Tube 12/26/22 0851 Mine Scrotum 2 days Drain/Tube 12/26/22 0851 Perineal Area 2 days VTE Prophylaxis: Patient is already anti-coagulated. Disposition: Home with [facility] Functional Status Prior to Admit: Medical Necessity for Continued Hospitalization DC Plan of care discussed with: Provider, RN, Patient Urology SIGNATURE: Dustin Hale DO PATIENT NAME: Teofilo Maxwell DATE: December 29, 2022 TIME: 7:58 AM PAGER/CONTACT #: Team color pager Disclaimer: Portions of this note may have been generated using [employer] voice recognition software. Reasonable efforts were made to correct any dictation err (more content not included)... [facility] 12-29-2022 Note HNO ID: [id number] Author: Yogesh Sheppard MD Service: Urology Author Type: Physician Type: Progress Notes Filed: 12/29/2022 9:56 AM Note Text: UROLOGY PROGRESS NOTE PATIENT NAME: Teofilo Maxwell DATE OF : 1955 ADMISSION DATE: 12/26/2022 1:25 AM Subjective Doing well this morning Passed void trial yesterday No nausea or vomiting, tolerating diet Objective VS: BP 146/91 Pulse 82 Temp 36.7 ?C (98.1 ?F) (Oral) Resp 18 Ht 185.4 cm (6' 1 ) Wt 96.4 kg (212 lb 8 oz) SpO2 95% BMI 28.04 kg/m? I AND O - 24hr: No intake or output data in the 24 hours ending 12/29/22 0723 Physical Exam: General: Neck: Resp: Abdomen: No acute distress Supple Normal effort Soft non tender, nondistended : Kessler draining clear yellow urine, packing in scrotum, 2 mine drains, skin edges pink and viable Labs and Imaging Studies LABS: BMP: Recent Labs 12/29/22 0507 12/28/22 0432 12/27/22 0538 NA 138 141 142 K -- 4.0 3.9 CHLOR 103 106* 107* CO2 25 27 24 BUN 14 14 12 CREAT 1.21 1.38* 1.24* GLUC 130* 116* 132* CBC: Recent Labs 12/29/22 0507 12/28/22 0432 12/27/22 0538 WBC 5.83 6.50 8.41 HB 11.6* 10.0* 10.1* HCT 33.6* 30.9* 30.7* PLT 232 174 181 Urinalysis: Specific [place], Ur Date Value Ref Range Status 11/22/2019 >1.045 (H) 1.005 - 1.030 Final Glucose, Urine Date Value Ref Range Status 11/22/2019 1+ (A) Negative mg/dL Final Bilirubin, Urine Date Value Ref Range Status 11/22/2019 Negative Negative Final Ketones, Urine Date Value Ref Range Status 11/22/2019 Trace (A) Negative Final Hemoglobin/Blood,Ur Date Value Ref Range Status 11/22/2019 Negative Negative Final Protein, Urine Date Value Ref Range Status 11/22/2019 1+ (A) Negative Final Nitrites Date Value Ref Range Status 11/22/2019 Negative Negative Final WBC, Urine Date Value Ref Range Status 11/22/2019 0-5 0 - 5 /HPF Final Urine Culture: No results found for: URCUL Assessment/Plan ASSESSMENT: 67 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 12/26 PLAN: -wound looks good, wound care on board, appreciate recs -wound culture - Ng2d prelim -continue IV abx per ID - linezolid, meropenem -BID wet to dry dressing changes -active void trial today (ordered) -labs reviewed - stable -will be discharged with mine drains in place -recommend holding Eliquis for one week, ok to restart on January 02 -okay for DC from a urology perspective, primary plans of discharging today -page ribbon weaver resident with questions or concerns Michelle Gonzales MD Urology PGY2 12/29/2022 7:23 AM -Page ribbon weaver resident with questions or concerns Attending Note I have seen examined and evaluated the patient and discussed the case with the resident physician. I agree with the assessment and plan as documented in the resident?s note. Signature: Yogesh Sheppard MD Date: 12/29/2022 Time: 9:56 AM [facility] 12-28-2022 Miscellaneous Notes Summary: ATTEMPTED CONFIRMATION CALL Kenia Arrieta December 28, 2022 4:38 PM Left voicemail messages for the patient at [phone] and patient's , Reyna Maxwell, at [phone] requesting a return call from either of them. documented in this encounter [facility] 12-28-2022 Note HNO ID: [id number] Author: Dustin Hale DO Service: Hospital Medicine Author Type: Physician Type: Progress Notes Filed: 12/28/2022 2:41 PM Note Text: DEPARTMENT OF HOSPITAL MEDICINE PROGRESS NOTE SERVICE DATE: 12/28/2022 SERVICE TIME: 9:33 AM Hospital Medicine/Primary Attending: Dustin Hale DO NIGHT AND WEEKEND COVERAGE: After 7pm please page [phone] CHIEF COMPLAINT: Follow up on MMP SUBJECTIVE: Pt seen and examined. States that he is still in pain. Trying to get someone in here to learn how to do dressing changes OBJECTIVE: PHYSICAL EXAM: BP 155/88 Pulse 81 Temp (Src) 97.9 (Oral) Resp 18 Ht 6' 1 (1.85m) Wt 212 lb 8 oz (96.4kg) SpO2 94% BMI 28.04 kg/(m2). O2 Therapy: Room Air General - AANDOx3, NAD, Calm CV - RRR S1 S2, No M/R/G RESP - CTA B/L No wheezes, ronchi, rales ABD - soft, NT, ND +BS EXT - no gross joint deformity, no clubbing, cyanosis, edema NEURO - CN II-XII grossly intact, no focal deficits - wound dressing not taken down MEDICATIONS: Current Facility-Administered Medications Medication Dose Route Frequency albuterol HFA 90 mcg/actuation 2 Puff (PROVENTIL HFA, VENTOLIN HFA) 2 Puff INHALATION q 4 H PRN NaCl 0.9% iv flush bag 20 mL INTRAVENOUS PRN aluminum-magnesium hydroxide-simethicone 200-200-20 mg/5 mL 30 mL 30 mL ORAL q 6 H PRN ondansetron 4 mg tab(s) (ZOFRAN) 4 mg ORAL q 6 H PRN Or ondansetron (PF) 4 mg injection (ZOFRAN) 4 mg INTRAVENOUS q 6 H PRN polyethylene glycol 3350 17 g packet 17 g ORAL DAILY PRN metoprolol tartrate (short acting) 12.5 mg tab(s) (LOPRESSOR) 12.5 mg ORAL q 12 H rOPINIRole 1 mg tab(s) (REQUIP) 1 mg ORAL AT BEDTIME linezolid iv piggyback 600 mg in dextrose 5% 300 mL (ZYVOX) 600 mg INTRAVENOUS q 12 H meropenem 1 g in NaCl 0.9% 100 mL Vial-Bag (MERREM) 1 g INTRAVENOUS q 8 H atorvastatin 80 mg tab(s) (LIPITOR) 80 mg ORAL AT BEDTIME oxyCODONE IR 5 mg tab(s) (ROXICODONE) 5 mg ORAL q 4 H PRN acetaminophen 650 mg tab(s) (TYLENOL) 650 mg ORAL q 6 H PRN morphine 4 mg injection 4 mg INTRAVENOUS q 3 H PRN DATA: Diagnostic tests reviewed for today's visit: CBC: Recent Labs 12/28/22431 WBC 6.50 RBC 3.39* HB 10.0* HCT 30.9* PLT 174 MCV 91.2 MCH 29.5 MPV 9.9 Coags: No results for input(s): PT, INR, APTT in the last 24 hours. BMP: Recent Labs 12/28/22431 NA 141 K 4.0 CHLOR 106* CO2 27 BUN 14 CREAT 1.38* GLUC 116* CMP: Recent Labs 12/28/22431 NA 141 K 4.0 CHLOR 106* CO2 27 BUN 14 CREAT 1.38* GLUC 116* TPROT 5.8* CA 8.3* TBILI 0.3 ALKPHOS 69 ALT 31 AST 29 ANION 8* Cardiac Enzymes: No results for input(s): CK, MB, CKMB, TROPT in the last 24 hours. Liver Function, Amylase, Lipase: Recent Labs 12/28/22431 TPROT 5.8* ALB 2.9* ALT 31 AST 29 ALKPHOS 69 TBILI 0.3 MG/PHOS: No results for input(s): MG, P in the last 24 hours. Renal Panel: Recent Labs 12/28/22431 CREAT 1.38* BUN 14 GLUC 116* CA 8.3* CHLOR 106* K 4.0 CO2 27 NA 141 Heme: No results for input(s): RETICP, ABSRETIC, LD, TIRSO, FE, TIBC, TRANSFERSAT in the last 24 hours. No results found for: UALBCR Estimated Creatinine Clearance: 63.6 mL/min (A) (based on SCr of 1.38 mg/dL (H)). Most recent labs and radiology results reviewed. Assessment/Plan POD # 2 s/p IANDD of Mer's gangrene with sepsis- Did have allergic reaction to clinda. On meropenem 1 g every 8 hours and zyvox 600mg every 12 hours. Urology managing. ID on consult. Will need final home going recommendations from urology when he is closer to discharge. Wound culture is negative growth for now. Added morphine 4mg every 3 hours as needed. Will monitor for respiratory depression on this high risk IV narcotic. CBC in AM. INcrease oxy ir to 5-10mg every 4 hours as needed Allergic reaction - to clinda. Resolved. Listed as allergy at this time. Hyperlipidemia - cont with atorvastatin 80mg daily Parox atrial fib- currently NSR at this time. Restart eliquis january 02. Hold for now due to bloody drainage CAD- cont home meds FREDI - vs some CKD - seems to fluctuate. BMP in AM Scrotum- cleanse area with N.S. or wound cleanser prior to dressing change. Pack open wounds with N.S. soaked kerlix and cover with ABD pads twice daily . then use mesh pants to hold dressing in place twice daily and as needed for soiling. Medication and Non-Pharmacologic VTE Prophylaxis/Anticoagulants 12/27/22 1000 pneumatic compression stockings (ca,oh) Lines, Drains, and Airways Line Duration Peripheral 12/25/22 [facility] Short Right Forearm 20 Gauge 3 days Peripheral 12/26/22 [facility] Short Left Hand 20 Gauge 2 days Drain Duration Drain/Tube 12/26/22 0851 [place] Scrotum 2 days Drain/Tube 12/26/22 0851 Perineal Area 2 days Indwelling Urinary Catheter 12/26/22 [facility] Kessler 2 days VTE Prophylaxis: Pneumatic Compressio (more content not included)... [facility] 12-28-2022 Note HNO ID: [id number] Author: Chidi Heller MD Service: Urology Author Type: Resident Type: Progress Notes Filed: 12/28/2022 7:58 AM Note Text: Attestation signed by Alejandro Arellano MD at 12/28/2022 11:19 AM Discussed with the resident and agree with resident's findings and plan as documented in the resident's note. Alejandro Arellano MD UROLOGY PROGRESS NOTE PATIENT NAME: Teofilo Maxwell DATE OF : 1955 ADMISSION DATE: 12/26/2022 1:25 AM Subjective Doing well this morning Worried about his Eliquis being held Hasn't been out of bed much No nausea or vomiting, tolerating diet Objective VS: BP 155/88 Pulse 81 Temp 36.6 ?C (97.9 ?F) (Oral) Resp 18 Ht 185.4 cm (6' 1 ) Wt 96.4 kg (212 lb 8 oz) SpO2 94% BMI 28.04 kg/m? I AND O - 24hr: Intake/Output Summary (Last 24 hours) at 12/28/2022 0753 Last data filed at 12/28/2022 0457 Gross per 24 hour Intake 660 ml Output 1500 ml Net -840 ml Physical Exam: General: Neck: Resp: Abdomen: No acute distress Supple Normal effort Soft non tender, nondistended : Kessler draining clear yellow urine, packing in scrotum, 2 mine drains, skin edges pink and viable Labs and Imaging Studies LABS: BMP: Recent Labs 12/28/2243112/27/22 0538 12/25/222122 NA 141 142 139 K 4.0 3.9 4.2 CHLOR 106* 107* 102 CO2 27 24 24 BUN 14 12 16 CREAT 1.38* 1.24* 1.41* GLUC 116* 132* 135* CBC: Recent Labs 12/28/22 0432 12/27/22 0538 12/26/22 0524 12/25/22 2123 WBC 6.50 8.41 5.00 7.37 HB 10.0* 10.1* 11.2* 13.4 HCT 30.9* 30.7* 32.9* 39.9 PLT 174 181 167 182 Urinalysis: Specific [place], Ur Date Value Ref Range Status 11/22/2019 >1.045 (H) 1.005 - 1.030 Final Glucose, Urine Date Value Ref Range Status 11/22/2019 1+ (A) Negative mg/dL Final Bilirubin, Urine Date Value Ref Range Status 11/22/2019 Negative Negative Final Ketones, Urine Date Value Ref Range Status 11/22/2019 Trace (A) Negative Final Hemoglobin/Blood,Ur Date Value Ref Range Status 11/22/2019 Negative Negative Final Protein, Urine Date Value Ref Range Status 11/22/2019 1+ (A) Negative Final Nitrites Date Value Ref Range Status 11/22/2019 Negative Negative Final WBC, Urine Date Value Ref Range Status 11/22/2019 0-5 0 - 5 /HPF Final Urine Culture: No results found for: URCUL Assessment/Plan ASSESSMENT: 67 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 12-27-2022 Note HNO ID: [id number] Author: Dustin Hale DO Service: Hospital Medicine Author Type: Physician Type: Progress Notes Filed: 12/27/2022 1:41 PM Note Text: DEPARTMENT OF HOSPITAL MEDICINE PROGRESS NOTE SERVICE DATE: 12/27/2022 SERVICE TIME: 9:45 AM Hospital Medicine/Primary Attending: Dustin Hale DO NIGHT AND WEEKEND COVERAGE: After 7pm please page [phone] CHIEF COMPLAINT: Follow up on MMP SUBJECTIVE: Pt seen and examined. In a lot of pain from his wounds. No chest pain or SOB. No vomiting OBJECTIVE: PHYSICAL EXAM: BP 154/76 Pulse 68 Temp (Src) 97.7 (Oral) Resp 18 Ht 6' 1 (1.85m) Wt 212 lb 8 oz (96.4kg) SpO2 94% BMI 28.04 kg/(m2). O2 Therapy: Room Air General - AANDOx3, NAD, Calm CV - RRR S1 S2, No M/R/G RESP - CTA B/L No wheezes, ronchi, rales ABD - soft, NT, ND +BS EXT - no gross joint deformity, no clubbing, cyanosis, edema NEURO - CN II-XII grossly intact, no focal deficits - + mine drain, 3 incisions. Bloody drainage MEDICATIONS: Current Facility-Administered Medications Medication Dose Route Frequency albuterol HFA 90 mcg/actuation 2 Puff (PROVENTIL HFA, VENTOLIN HFA) 2 Puff INHALATION q 4 H PRN NaCl 0.9% iv flush bag 20 mL INTRAVENOUS PRN aluminum-magnesium hydroxide-simethicone 200-200-20 mg/5 mL 30 mL 30 mL ORAL q 6 H PRN ondansetron 4 mg tab(s) (ZOFRAN) 4 mg ORAL q 6 H PRN Or ondansetron (PF) 4 mg injection (ZOFRAN) 4 mg INTRAVENOUS q 6 H PRN polyethylene glycol 3350 17 g packet 17 g ORAL DAILY PRN heparin 5,000 Units injection 5,000 Units SUBCUTANEOUS q 12 H lactated ringers iv infusion 150 mL/hr INTRAVENOUS CONTINUOUS metoprolol tartrate (short acting) 12.5 mg tab(s) (LOPRESSOR) 12.5 mg ORAL q 12 H rOPINIRole 1 mg tab(s) (REQUIP) 1 mg ORAL AT BEDTIME linezolid iv piggyback 600 mg in dextrose 5% 300 mL (ZYVOX) 600 mg INTRAVENOUS q 12 H meropenem 1 g in NaCl 0.9% 100 mL Vial-Bag (MERREM) 1 g INTRAVENOUS q 8 H atorvastatin 80 mg tab(s) (LIPITOR) 80 mg ORAL AT BEDTIME oxyCODONE IR 5 mg tab(s) (ROXICODONE) 5 mg ORAL q 4 H PRN acetaminophen 650 mg tab(s) (TYLENOL) 650 mg ORAL q 6 H PRN morphine 4 mg injection 4 mg INTRAVENOUS q 3 H PRN DATA: Diagnostic tests reviewed for today's visit: CBC: Recent Labs 12/27/22 0538 WBC 8.41 RBC 3.41* HB 10.1* HCT 30.7* PLT 181 MCV 90.0 MCH 29.6 MPV 10.0 Coags: No results for input(s): PT, INR, APTT in the last 24 hours. BMP: Recent Labs 12/27/22 0538 NA 142 K 3.9 CHLOR 107* CO2 24 BUN 12 CREAT 1.24* GLUC 132* CMP: Recent Labs 12/27/22 0538 NA 142 K 3.9 CHLOR 107* CO2 24 BUN 12 CREAT 1.24* GLUC 132* TPROT 5.9* CA 8.5 MG 2.0 TBILI 0.4 ALKPHOS 70 ALT 31 AST 32 ANION 11 Cardiac Enzymes: No results for input(s): CK, MB, CKMB, TROPT in the last 24 hours. Liver Function, Amylase, Lipase: Recent Labs 12/27/22 0538 TPROT 5.9* ALB 3.2* ALT 31 AST 32 ALKPHOS 70 TBILI 0.4 MG/PHOS: Recent Labs 12/27/22 0538 MG 2.0 Renal Panel: Recent Labs 12/27/22 0538 CREAT 1.24* BUN 12 GLUC 132* CA 8.5 CHLOR 107* K 3.9 CO2 24 NA 142 Heme: No results for input(s): RETICP, ABSRETIC, LD, TIRSO, FE, TIBC, TRANSFERSAT in the last 24 hours. No results found for: UALBCR Estimated Creatinine Clearance: 70.7 mL/min (A) (based on SCr of 1.24 mg/dL (H)). Most recent labs and radiology results reviewed. Assessment/Plan POD # 1 s/p IANDD of Mer's gangrene with sepsis- Did have allergic reaction to clinda. On meropenem 1 g every 8 hours and zyvox 600mg every 12 hours. Urology managing. ID on consult. Will need final home going recommendations from urology when he is closer to discharge. Wound culture is negative growth for now. Added morphine 4mg every 3 hours as needed. Will monitor for respiratory depression on this high risk IV narcotic. CBC in AM Allergic reaction - to clinda. Resolved. Listed as allergy at this time. Hyperlipidemia - cont with atorvastatin 80mg daily Parox atrial fib- currently NSR at this time. Restart eliquis when ok with urology. Hold for now due to bloody drainage CAD- cont home meds FREDI - mild. greatly improved. Will stop fluids for now.bmp in AM cleanse area with N.S. or wound cleanser prior to dressing change. Pack open wounds with N.S. soaked kerlix and cover with ABD pads twice daily . then use mesh pants to hold dressing in place twice daily and as needed for soiling. Medication and Non-Pharmacologic VTE Prophylaxis/Anticoagulants Anticoagulant AND Antiplatelet Medications (From admission, onward) Start Dose Route Frequency Last Action Ordered Stop 12/26/22 0900 heparin 5,000 Units injection (Medical Risk Categories) 5,000 Units SUBCUTANEOUS EVERY 12 HOURS Given, 12/26 203312/26/22 0437 -- Lines, Drains, and Airways Line Duration Peripheral 12/25/22 [facility] Short Right Forearm 20 Gauge 2 days Peripheral 12/26/22 Cl (more content not included)... [facility] 12-27-2022 Note HNO ID: [id number] Author: Francine Maya MD Service: Urology Author Type: Physician Type: Progress Notes Filed: 12/29/2022 10:13 AM Note Text: UROLOGY PROGRESS NOTE PATIENT NAME: Teofilo Maxwell DATE OF : 1955 ADMISSION DATE: 12/26/2022 1:25 AM Subjective S/p IANDD 12/26 No acute events overnight AF HDS WBC wnl Some bloody drainage from mine overnight Objective VS: BP 120/69 Pulse 77 Temp 36.2 ?C (97.2 ?F) (Oral) Resp 18 Ht 185.4 cm (6' 1 ) Wt 96.4 kg (212 lb 8 oz) SpO2 93% BMI 28.04 kg/m? I AND O - 24hr: Intake/Output Summary (Last 24 hours) at 12/27/2022 0659 Last data filed at 12/27/2022 0435 Gross per 24 hour Intake 2740 ml Output 2010 ml Net 730 ml Physical Exam: General: Neck: Resp: Abdomen: No acute distress Supple Normal effort Soft non tender : Kessler draining clear yellow urine, packing in scrotum, 2 mine drains Labs and Imaging Studies LABS: BMP: Recent Labs 12/27/2253712/25/222122 NA 142 139 K 3.9 4.2 CHLOR 107* 102 CO2 24 24 BUN 12 16 CREAT 1.24* 1.41* GLUC 132* 135* CBC: Recent Labs 12/27/22 0538 12/26/22 0512/25/222122 WBC 8.41 5.00 7.37 HB 10.1* 11.2* 13.4 HCT 30.7* 32.9* 39.9 PLT 181 167 182 Urinalysis: Specific Ridge, Ur Date Value Ref Range Status 11/22/2019 >1.045 (H) 1.005 - 1.030 Final Glucose, Urine Date Value Ref Range Status 11/22/2019 1+ (A) Negative mg/dL Final Bilirubin, Urine Date Value Ref Range Status 11/22/2019 Negative Negative Final Ketones, Urine Date Value Ref Range Status 11/22/2019 Trace (A) Negative Final Hemoglobin/Blood,Ur Date Value Ref Range Status 11/22/2019 Negative Negative Final Protein, Urine Date Value Ref Range Status 11/22/2019 1+ (A) Negative Final Nitrites Date Value Ref Range Status 11/22/2019 Negative Negative Final WBC, Urine Date Value Ref Range Status 11/22/2019 0-5 0 - 5 /HPF Final Urine Culture: No results found for: URCUL Assessment/Plan ASSESSMENT: 67 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 I have reviewed the resident's documentation and verified the findings in the note as written. Patient seen and examined. Feels much better than when admitted. He has had similar issues in the past which resolved with sitz bath's. Frustrated with himself that he waited too long to come to the ED. His biggest concern is finding out culture results. Exam: Wound recently packed. Dressing clean and dry. Surrounding skin without erythema. No selina purulence. Continue present management as outlined above. Signature: Francine Maya Date: 12/29/2022 Time: 10:12 AM [facility] 12-26-2022 Note HNO ID: [id number] Author: Sveta Baeza APRN.CASKET INSPECTOR Service: Anesthesiology Author Type: Nurse Railroad Car Inspector Type: Anesthesia Procedure Notes Filed: 12/26/2022 8:41 AM Note Text: ANESTHESIOLOGY PROCEDURE NOTE Airway General Information Procedure Start Time/Medication Administration: 12/26/2022 8:11 AM Patient location during procedure: OR Timeout Performed Pre-procedure: timeout performed Consent Obtained: Yes Patient identity confirmed: arm band and patient Staffing CASKET INSPECTOR: Sveta Baeza APRN.CASKET INSPECTOR Performed by: LEONARDO Indications and Patient Condition Indications for airway management: anesthesia Preoxygenated: yes anesthesia circuit Patient position: sniffing Method: asleep Final Airway Details Final airway type: endotracheal airway Final Endotracheal Airway: intubating LMA Cuffed: yes Successful intubation technique: direct laryngoscopy Devices used: Lozano Endotracheal tube insertion site: oral Blade: Avelino Blade size: #4 Measured from: lips Measurement (cm): 22 Placement verified by: chest auscultation and capnometry Cormack-Lehane Classification: grade I - full view of glottis Number of attempts at approach: 1 SIGNATURE: Sveta Baeza APRN.CASKET INSPECTOR PATIENT NAME: Teofilo Maxwell DATE: December 26, 2022 TIME: 8:41 AM CSN: [id number] [facility] 12-26-2022 Note HNO ID: [id number] Author: Dustin Hale DO Service: Hospital Medicine Author Type: Physician Type: Progress Notes Filed: 12/26/2022 6:56 AM Note Text: DEPARTMENT OF HOSPITAL MEDICINE PROGRESS NOTE SERVICE DATE: 12/26/2022 SERVICE TIME: 6:52 AM Hospital Medicine/Primary Attending: Dustin Hale, DO NIGHT AND WEEKEND COVERAGE: After 7pm please page [phone] CHIEF COMPLAINT: Follow up on MMP SUBJECTIVE: Pt seen and examined. States that he feels ok. No more SoB. Await to hear when he is going to the OR. No abdominal pain OBJECTIVE: PHYSICAL EXAM: BP 136/67 Pulse 63 Temp (Src) 98 (Oral) Resp 15 Wt 211 lb (95.7kg) SpO2 92% O2 Therapy: Room Air General - AANDOx3, NAD, Calm CV - RRR S1 S2, No M/R/G RESP - CTA B/L No wheezes, ronchi, rales ABD - soft, NT, ND +BS EXT - no gross joint deformity, no clubbing, cyanosis, edema - wound not looked at MEDICATIONS: Current Facility-Administered Medications Medication Dose Route Frequency albuterol HFA 90 mcg/actuation 2 Puff (PROVENTIL HFA, VENTOLIN HFA) 2 Puff INHALATION q 4 H PRN atorvastatin 80 mg tab(s) (LIPITOR) 80 mg ORAL DAILY NaCl 0.9% iv flush bag 20 mL INTRAVENOUS PRN aluminum-magnesium hydroxide-simethicone 200-200-20 mg/5 mL 30 mL 30 mL ORAL q 6 H PRN ondansetron 4 mg tab(s) (ZOFRAN) 4 mg ORAL q 6 H PRN Or ondansetron (PF) 4 mg injection (ZOFRAN) 4 mg INTRAVENOUS q 6 H PRN polyethylene glycol 3350 17 g packet 17 g ORAL DAILY PRN acetaminophen 650 mg tab(s) (TYLENOL) 650 mg ORAL q 6 H PRN heparin 5,000 Units injection 5,000 Units SUBCUTANEOUS q 12 H lactated ringers iv infusion 150 mL/hr INTRAVENOUS CONTINUOUS metoprolol tartrate (short acting) 12.5 mg tab(s) (LOPRESSOR) 12.5 mg ORAL q 12 H rOPINIRole 1 mg tab(s) (REQUIP) 1 mg ORAL AT BEDTIME linezolid iv piggyback 600 mg in dextrose 5% 300 mL (ZYVOX) 600 mg INTRAVENOUS q 12 H meropenem 1 g in NaCl 0.9% 100 mL Vial-Bag (MERREM) 1 g INTRAVENOUS q 8 H DATA: Diagnostic tests reviewed for today's visit: CBC: Recent Labs 12/26/22 0524 WBC 5.00 RBC 3.69* HB 11.2* HCT 32.9* PLT 167 MCV 89.2 MCH 30.4 MPV 10.6 Coags: No results for input(s): PT, INR, APTT in the last 24 hours. BMP: Recent Labs 12/25/222122 NA 139 K 4.2 CHLOR 102 CO2 24 BUN 16 CREAT 1.41* GLUC 135* CMP: Recent Labs 12/25/222122 NA 139 K 4.2 CHLOR 102 CO2 24 BUN 16 CREAT 1.41* GLUC 135* TPROT 7.8 CA 9.4 TBILI 0.8 ALKPHOS 85 ALT 26 AST 23 ANION 13 Cardiac Enzymes: No results for input(s): CK, MB, CKMB, TROPT in the last 24 hours. Liver Function, Amylase, Lipase: Recent Labs 12/25/222122 TPROT 7.8 ALB 3.9 ALT 26 AST 23 ALKPHOS 85 TBILI 0.8 MG/PHOS: No results for input(s): MG, P in the last 24 hours. Renal Panel: Recent Labs 12/25/222122 CREAT 1.41* BUN 16 GLUC 135* CA 9.4 CHLOR 102 K 4.2 CO2 24 NA 139 Heme: No results for input(s): RETICP, ABSRETIC, LD, TIRSO, FE, TIBC, TRANSFERSAT in the last 24 hours. No results found for: UALBCR CrCl cannot be calculated (Unknown ideal weight.). Most recent labs and radiology results reviewed. Assessment/Plan Mer's gangrene- plans for OR this AM. Did have allergic reaction to clinda. On meropenem 1 g every 8 hours and zyvox 600mg every 12 hours. Urology managing. ?Transfer to urology service post op as allergic reaction as resolved. ID on consult Allergic reaction - to clinda. Resolved. Listed as allergy at this time. Hyperlipidemia - cont with atorvastatin 80mg daily Parox atrial fib- currently NSR at this time. Restart eliquis when ok with urology. CAD- cont home meds FREDI - mild. Cont with IV fluids for now Medication and Non-Pharmacologic VTE Prophylaxis/Anticoagulants Anticoagulant AND Antiplatelet Medications (From admission, onward) Start Dose Route Frequency Last Action Ordered Stop 12/26/22 0900 heparin 5,000 Units injection (Medical Risk Categories) 5,000 Units SUBCUTANEOUS EVERY 12 HOURS Ordered 12/26/22 0437 -- Lines, Drains, and Airways Line Duration Peripheral 12/25/22 [facility] Short Left Antecubital 20 Gauge 1 day Peripheral 12/25/22 [facility] Short Right Forearm 20 Gauge 1 day VTE Prophylaxis: Early Ambulation Disposition: Home Functional Status Prior to Admit: Medical Necessity for Continued Hospitalization MMP Plan of care discussed with: Patient SIGNATURE: Dustin Hale DO PATIENT NAME: Teofilo Maxwell DATE: December 26, 2022 TIME: 6:52 AM PAGER/CONTACT #: Team color pager Disclaimer: Portions of this note may have been generated using [employer] voice recognition software. Reasonable efforts were made to correct any dictation errors that resulted due to the programming of this software but some may still be present. Please note, the time of this note does not reflect the time I saw this patient today, but the time of this document (more content not included)... [facility] documented as of this encounter (statuses as of 12/29/2022) [facility]02-20-2018 History of Past illness Narrative* Problem Noted Date Resolved Date Barium enema abnormal 08/20/2017 08/21/2017 Last Assessment & Plan: Barium Enema Assessment: There was a very long narrow segment of distal descending and proximal sigmoid colon with question of multiple small areas of ulceration. This segment of colon never seen to dilate. Flexible sigmoidoscopy Impression: - Diverticulosis in the descending colon. - Internal hemorrhoids. - External hemorrhoids. - No specimens collected. PLAN: Resume regular diet Resume prior hospital meds INACTIVE PROBLEM Odynophagia 08/04/2017 08/22/2017 Last Assessment & Plan: Assessment: Noted in previous admision Given 10d acyclovir following HSV+ PLAN: Protonix and carafate Speech therapy- regular consistency, thin liquids (per previous hospitalization) Leukocytosis 06/19/2017 06/25/2017 Hypokalemia 06/19/2017 06/26/2017 Overview: - 3.4 this AM, supplemented - Monitor AM labs documented as of this encounter (statuses as of 01/02/2023) [facility]02-20-2018 History of Past illness Narrative* Problem Noted Date Diagnosed Date Resolved Date Barium enema abnormal 08/20/20172017 Last Assessment & Plan: Barium Enema Assessment: There was a very long narrow segment of distal descending and proximal sigmoid colon with question of multiple small areas of ulceration. This segment of colon never seen to dilate. Flexible sigmoidoscopy Impression: - Diverticulosis in the descending colon. - Internal hemorrhoids. - External hemorrhoids. - No specimens collected. PLAN: Resume regular diet Resume prior hospital meds INACTIVE PROBLEM Odynophagia 08/04/2017 08/22/2017 Last Assessment & Plan: Assessment: Noted in previous admision Given 10d acyclovir following HSV+ PLAN: Protonix and carafate Speech therapy- regular consistency, thin liquids (per previous hospitalization) Leukocytosis 06/19/2017 06/25/2017 Hypokalemia 06/19/2017 06/26/2017 Overview: - 3.4 this AM, supplemented - Monitor AM labs documented as of this encounter (statuses as of 01/14/2023) [facility] Scrotal abscess- Primary Other inflammatory disorder of male genital organs documented in this encounter [facility] Summary Purpose Family History No Family History Records FoundNo Family History Records FoundNo Family History Records FoundNo Family History Records Found Advance Directives No Advanced Directives Records FoundDocuments on File Type Date Recorded Patient Environmental Remediation Consultant Expl anation Advance Directive(s) 01/28/2020 7:22 AM Latest Code Status on File Code Status Date Activated Date Inactivated Comments Full Code 12/26/2022 4:52 AM Full Code Order Discussed With: Patient Full Code 11/21/2019 8:05 PM 11/25/2019 12:39 PM Latest Code Status on File Code Status Date Activated Date Inactivated Comments Full Code 12/26/2022 4:52 AM 12/29/2022 1:54 PM Latest Code Status on File Code Status Date Activated Date Inactivated Comments Full Code 12/26/2022 4:52 AM 12/29/2022 1:54 PM Question Answer Comments Full Code Order Discussed With: Patient Code Status History Code Status Date Activated Date Inactivated Comments Full Code 11/21/2019 8:05 PM 11/25/2019 12:39 PM Question Answer Comments Full Code Order Discussed With: Patient Additional Source Comments (unrecognized sect ion and content) No Status Records FoundNo Status Records FoundNo Status Records FoundNo Status Records Found INFORMATION SOURCE (unrecogn ized section and content) DATE CREATED AUTHOR AUTHOR'S ORGANIZ ATION 12/29/2022 [facility] DATE CREATED AUTHOR AUTHOR'S ORGANIZ ATION 03/23/2023 [facility] DATE CREATED AUTHOR AUTHOR'S ORGANIZ ATION 03/23/2023 [facility] Source Comments (unrecognize d section and content) In the event this informatio n is protected by the Federal Confidentiality of Alcohol and Drug Abuse Patient Records regulations: The Federal rules restrict any use of the information to criminally investigate or prosecute any alcohol or drug abuse patient.[facility] the event this information is protected by the Federal Confidentiality of Alcohol and Drug Abuse Patient Records regulations: The Federal rules restrict any use of the information to criminally investigate or prosecute any alcohol or drug abuse patient.[facility] the event this information is protected by the Federal Confidentiality of Alcohol and Drug Abuse Patient Records regulations: The Federal rules restrict any use of the information to criminally investigate or prosecute any alcohol or drug abuse patient.[facility] Reason for Visit (unrecogniz ed section and content) Reason Comments er follow up Reason Comments scrotal abcess Care Teams (unrecognized sec tion and content) Fitness And Wellness Manager Relationship Specialty Start Date End Date Vero Green, ASSISTANT WOMEN'S TENNIS COACH.ADVISORY SERVICES ASSOCIATE [address] [place] [address] PCP - General Family Medicine 12/25/22 Marcelo Fritz MD [address] [place], [place] [id number] Primary Staff Physician Cardiology 01/04/21 Fitness And Wellness Manager Relationship Specialty Start Date End Date Vero Green, ASSISTANT WOMEN'S TENNIS COACH.ADVISORY SERVICES ASSOCIATE [address] [place], [place] [phone] PCP - General Family Medicine 12/25/22 Marcelo Fritz MD [address] [place], [place] [id number] Primary Staff Physician Cardiology 01/04/21 FOR RECORDS PERTAINING TO PATIENTS WHO ARE OR HAVE BEEN ENROLLED IN A CHEMICAL DEPENDENCY/SUBSTANCEABUSE PROGRAM, SOME INFORMATION MAY BE OMITTED. This clinical summary was aggregated from multiple sources. Caution should be exercised in using it in the provision of clinical care. This summary normalizes information from multiple sources, and as a consequence, information in this document may materially change the coding, format and clinical context of patient data. In addition, data may be omitted in some cases. CLINICAL DECISIONS SHOULD BE BASED ON THE PRIMARY CLINICAL RECORDS. [employer] [facility]. provides no warranty or guarantee of the accuracy or completeness of information in this document.
[2023-08-22 23:17] LABS: Absolute Lymphocyte Count 1.84 X10^3/uL (0.83-4.51); Absolute Neutrophil Count 3.6 X10^3/uL (2.0-7.7); Basophil# 0.04 X10^3/uL; Basophil% 0.6 % (0-1); Eosinophil# 0.31 X10^3/uL; Eosinophils% 4.7 % (0-5); Hematocrit 46.6 % (40-54); Hemoglobin 15.7 g/dL (13.0-16.5); Lymphocyte # 1.84 X10^3/ul (0.83-4.51); Lymphocyte % 28.1 % (19-41); Mean Corp Hgb Conc 33.7 g/dL (32-36); Mean Corpuscular Volume 92.1 fL (80-94); Mean Platelet Vol. 12.7 fl (6.2-12.0); Monocyte# 0.71 X10^3/uL; Monocyte% 10.8 % (0-10); NRBC Flagged by Analyzer 0 % (0-5); Neutrophil # 3.63 X10^3/uL (2.7-7.7); Neutrophil % 55.5 % (47-70); Platelet Count 126 K/mm3 (150-450); RBC Distribution Width CV 12.9 % (11.6-14.6); RBC Distribution Width SD 43.3 fl (35.1-43.9); Red Blood Count 5.06 M/mm3 (4.6-6.2); White Blood Count 6.6 K/mm3 (4.4-11.0)
[2023-08-22 23:34] LABS: Ferritin 34 ng/mL (26-388); Iron Binding Capacity,Total 322 ug/dL (250-450)
== END | disposition home or self-care (01) ==
PROVIDERS: PCP Nurse Practitioner; Visit Provider Nurse Practitioner
DX: D50.9 Iron deficiency anemia, unspecified (principal)
CPT/HCPCS: 82728; 83550; 85025

== ENCOUNTER → 2023-12-02 | Outpatient (CLI) | payer MEDICARE, MEDICAID, SELFPAY ==
[2023-12-02 22:14] LABS: Absolute Lymphocyte Count 1.88 X10^3/uL (0.83-4.51); Absolute Neutrophil Count 2.9 X10^3/uL (2.0-7.7); Basophil# 0.03 X10^3/uL; Basophil% 0.5 % (0-1); Eosinophil# 0.19 X10^3/uL; Eosinophils% 3.3 % (0-5); Hemoglobin 14.4 g/dL (13.0-16.5); Lymphocyte # 1.88 X10^3/ul (0.83-4.51); Lymphocyte % 32.7 % (19-41); Mean Corp Hgb Conc 33.5 g/dL (32-36); Mean Corpuscular Hgb 31.3 pg (27.0-32.0); Mean Corpuscular Volume 93.5 fL (80-94); Mean Platelet Vol. 12.6 fl (6.2-12.0); Monocyte# 0.74 X10^3/uL; Monocyte% 12.9 % (0-10); NRBC Flagged by Analyzer 0 % (0-5); Neutrophil # 2.89 X10^3/uL (2.7-7.7); Neutrophil % 50.3 % (47-70); Platelet Count 119 K/mm3 (150-450); RBC Distribution Width CV 12.4 % (11.6-14.6); RBC Distribution Width SD 42.3 fl (35.1-43.9); White Blood Count 5.8 K/mm3 (4.4-11.0)
[2023-12-02 22:26] LABS: ALB/GLOB Ratio 0.9 RATIO (0.9-2.4); AST(SGOT) 34 U/L (15-37); Alanine Aminotransfer ALT/SGPT 46 U/L (16-61); Albumin, Serum 3.5 g/dL (3.2-5.0); Alkaline Phosphatase 96 U/L (45-117); Anion Gap 5 (5-15); BUN 14 mg/dL (7-18); Chloride 108 mmol/L (98-107); Creatinine, Serum 1.27 mg/dL (0.70-1.30); EST Glomerular Filtration Rate 60 mL/min (>60); Est Glom Filt Rate - Afr Amer 72 mL/min (>60); Globulin 3.8 g/dL (2.2-4.2); Glucose 103 mg/dL (74-106); Potassium 4.3 mmol/L (3.5-5.1); Protein, Total 7.3 g/dL (6.4-8.2); Sodium Level 137 mmol/L (136-145)
== END | disposition home or self-care (01) ==
PROVIDERS: PCP Nurse Practitioner; Visit Provider Nurse Practitioner
DX: D50.8 Other iron deficiency anemias (principal); D51.8 Other vitamin B12 deficiency anemias; D69.6 Thrombocytopenia, unspecified
CPT/HCPCS: 80053; 85025

== ENCOUNTER → 2024-03-06 | Outpatient (CLI) | payer MEDICARE, MEDICAID, SELFPAY | END | disposition home or self-care (01) | PROVIDERS: PCP Nurse Practitioner; Referring Provider Nurse Practitioner; Visit Provider Nurse Practitioner | DX: L02.01 Cutaneous abscess of face (principal) | CPT/HCPCS: 87070; 87205 ==

== ENCOUNTER → 2024-12-16 | Outpatient (CLI) | payer MEDICARE, MEDICAID, SELFPAY ==
--- OUTSIDE RECORDS SUMMARY | 2024-12-17 | XMS RPT_ITS | CCD ---
Author Organization [facility] Care Team Providers Care Dielectric Press Operator Name Role Phone AsadBrittany braun Unavailable Unavailable PROVIDER, UNKNOWN Unavailable Unavailable Jony Vero Unavailable Unavailable Marcelo Fritz MD Unavailable Jony ACCOUNTS PAYABLES CLERK.CIRCULAR SAWYER HELPER, Vero Coker Primary Care Provide r JONY VERO Sheela Primary Care Unavailable BRUCE BURNETT Admitting Unavailable DUSTIN HALE Attending Unavailable DOMINICK AVENDAÑO III UnavailMICAELA Velazquez Attending Unavailable GREEN, VERO L Primary Care Unavailable DAVID ZENDEJAS Attending Unavailable GREEN VERO L Primary Care Unavailable GREEN, VERO L Primary Care Unavailable ROCCO GARCIA Attending Unavailduarte Green HOME VISITOR HOME BASE HEAD START, Vero Primary Care Unavailable Green HOME VISITOR HOME BASE HEAD START, Vero Attending Unavailable Green HOME VISITOR HOME BASE HEAD START, Vero Attending Unavailable Green HOME VISITOR HOME BASE HEAD START, Vero Primary Care Unavailable Green HOME VISITOR HOME BASE HEAD START, Vero Attending Unavailable Green HOME VISITOR HOME BASE HEAD START, Vero Primary Care Unavailable Green HOME VISITOR HOME BASE HEAD START, Vero Attending Unavailable Green HOME VISITOR HOME BASE HEAD START, Vero Referring Unavailable Green HOME VISITOR HOME BASE HEAD START, Vero Primary Care Unavailable Allergies Allergy Classification Reported Allergen(s) Allergy Type Date of Onset Reaction(s) Facility (5 sources) Clindamycin; Translations: [CLINDAMYCIN] Drug Allergy 3 Shortness of Breath [facility] (5 sources) HYDROmorphone; Translations: [HYDROMORPHONE (BULK)] Drug Allergy 7 Shortness of Breath [facility] Work Phone: (5 sources) Lisinopril; Translations: [LISINOPRIL] Drug Allergy 0 Cough [facility] Work Phone: (1 source) HYDROmorphone Drug Allergy 4 [facility] Repository Medications Current Medications Medication Drug Class(es) Dates Sig (Normalized) Sig (Original) [id number] 200 actuat albuterol 0.09 mg/actuat metered dose inhaler (7 sources) beta2-Adrenergic Agonist Start: 01-04-2021 take 2 puff(s) by inhalation every four hours as needed for wheezing albuterol HFA (PROVENTIL HFA, VENTOLIN HFA) 90 mcg/actuation inhaler Indications: Uncomplicated asthma, unspecified asthma severity, unspecified whether persistent Inhale 2 Puffs as instructed every 4 hours as needed for wheezing/shortness of breath. 1 Each 3 01/04/2021 Active Start: 02-03-2020 End: 05-13-2023 take 1 puff(s) by inhalation every four hours Albuterol Sulfate (Proair Hfa) 90 mcg/actuation HFA aerosol inhaler Active 2 PUFF INHALATION Q4H 25.5 May 13, 2023 5:42pm Comment on above: Inhale 2 Puffs as in structed every 4 hours as needed for wheezing/shortness of breath. atorvastatin 80 mg oral tablet (7 sources) HMG-CoA Reductase Inhibitor Start: 020 End: take 80 mg by mouth at bedtime Atorvastatin Active 80 MG PO AT BEDTIME May 13, 2023 5:42pm Comment on above: Take 1 tablet by adrian th once daily. Lactobacillus Combination No.8 (Adult Probiotic) 3 billion cell capsule (1 source) Start: 018 take 3 capsules by mouth once daily Lactobacillus Combination No.8 (Adult Probiotic) 3 billion cell capsule Active 3000 MMU CELLS PO DAILY June 27, 2018 12:00am lactobacillus rhamnosus gg [id number] unt oral capsule (1 source) Start: 022 take 1 capsule by mouth once daily Lactobacillus Rhamnosus Gg (Culturelle) 10 billion cell capsule Active 1 CAP PO DAILY February 26, 2022 11:00pm mecobalamin 1 mg sublingual tablet (1 source) Start: 023 Mecobalamin (Vitamin B12) Active 1000 MCG SL DAILY May 13, 2023 12:00am place tablet under tongue and allow to dissolve for at least30 secs before swallowing 24 hr metoprolol succinate 25 mg extended release oral tablet (9 sources) beta-Adrenergic Tracy Start: End: take 25 mg by mouth once daily Metoprolol Tartrate Discontinued 25 MG PO DAILY February 27, 2022 7:18pm March 06, 2022 7:12pm Start: 03-13-2021 End: 05-13-2023 take 25 mg by mouth once daily Metoprolol Succinate Ac tive 25 MG PO DAILY May 13, 2023 5:42pm Start: 01-07-2020 End: 02-27-2022 take 25 mg by mouth once daily Metoprolol Succinate Di scontinued 25 MG PO DAILY January 06, 2020 11:00pm February 27, 2022 7:15pm Comment on above: Take 1 tablet by adrian once daily. oxyCODONE hydrochloride 5 mg oral tablet (1 source) Opioid Agonist Start: End: take 1 tablet by mouth every eight hours as needed oxyCODONE IR (ROXICODONE) 5 mg immediate release tablet Indications: Luiz's gangrene of scrotum Take 1 tablet by mouth every 8 hours as needed for up to 5 days. 12 tablet 0 12/29/2022 01/03/2023 Active Comment on above: Take 1 tablet by adrian every 8 hours as needed for up to 5 days. psyllium 3400 mg powder for oral suspension (4 sources) Start: 0 Psyllium Husk (Metamucil) 3.4 gram/5.4 gram powder Active 1 tbsp PO TWICE A DAY November 19, 2019 11:00pm mix into at least 8 oz of water or juice before administering take 1 dose by mouth once daily in the evening psyllium husk, with sugar, (METAMUCIL) 3 .4 gram packet Take 1 Packet by mouth every evening. 0 Active Comment on above: Take 1 Packet by adrian every evening. rOPINIRole 1 mg oral tablet (8 sources) Nonergot Dopamine Agonist Start: 09-27-2022 End: 09-27-2022 take 1 mg by mouth at bedtime Ropinirole Discontinued 1 MG PO AT BEDTIME September 27, 2022 9:30am September 27, 2022 9:52am administer 1-3 hours before bedtime Start: 09-27-2022 End: 05-13-2023 take 1 mg by mouth at bedtime Ropinirole Active 1 MG P O AT BEDTIME May 13, 2023 5:43pm administer 1-3 hours before bedtime Start: 06-14-2022 End: 09-27-2022 take 0.5 mg by mouth at bedtime Ropinirole Discontinue d 0.5 MG PO AT BEDTIME June 14, 2022 12:00am September 27, 2022 9:30am administer 1-3 hours before bedtime Comment on above: Take 1 mg by mouth e very evening. Completed/Discontinued Medications Medication Drug Class(es) Dates Sig (Normalized) Sig (Original) acetaminophen 325 mg oral tablet (2 sources) Start: 12-29-2022 take 2 tablets by mouth every six hours as needed acetaminophen (TYLENOL) 325 mg tablet Take 2 tablets by mouth every 6 hours as needed for pain. 0 12/29/2022 Active Comment on above: Take 2 tablets by mo uth every 6 hours as needed for pain. apixaban 5 mg oral tablet (5 sources) Factor Xa Inhibitor Start: 07-17-2021 End: 07-27-2022 take 1 tablet by mouth twice daily apixaban (ELIQUIS) 5 mg tab(s) Take 1 tablet by mouth twice daily. 0 01/02/2023 Active Comment on above: Take 5 mg by mouth t wice daily. Take 1 tablet by adrian th twice daily. aspirin 81 mg delayed release oral tablet (2 sources) Platelet Aggregation Inhibitor, Nonsteroidal Anti-inflammatory Drug Start: 01-07-2020 End: 05-13-2023 take 1 tablet by mouth once daily aspirin, enteric coated (ASPIRIN, ENTERIC COATED) 81 mg EC tablet Take 1 tablet by mouth once daily. 100 tablet 3 11/10/2020 Suspended Comment on above: Take 1 tablet by adrian th once daily. azithromycin 250 mg oral tablet (1 source) Macrolide Antimicrobial Start: 06-27-2018 End: 07-02-2018 Azithromycin Discontinued 250 MG PO daily 6 June 27, 2018 12:00am July 02, 2018 12:06am 2 po qd for 1 day then 1 po qd for 4 days with food or after eating bifidobacterium infantis 4 mg oral capsule (2 sources) Bifidobacterium Infantis (ALIGN) 4 mg cap Take by mouth. 0 Active Comment on above: Take by mouth. carbidopa 25 mg / levodopa 100 mg oral tablet (2 sources) Aromatic Amino Acid Decarboxylation Inhibitor, Aromatic Amino Acid Start: 01-07-2020 End: 07-17-2021 take 1 tablet by mouth at bedtime Carbidopa-Levodopa Discontinued 1 TABLET PO AT BEDTIME January 06, 2020 11:00pm July 17, 2021 4:11pm take 1 tablet by adrian once daily at bedtime carbidopa-levodopa (SINEMET 25-100) 25-1 00 mg per tablet Take 1 tablet by mouth daily at bedtime. 0 Suspended Comment on above: Take 1 tablet by adrian th daily at bedtime. cefdinir 300 mg oral capsule (2 sources) Cephalosporin Antibacterial Start: End: take 300 mg by mouth twice daily Cefdinir Discontinued 300 MG PO TWICE A DAY January 07, 2023 11:00pm January 29, 2023 7:26pm Comment on above: Take 1 capsule by mo [facility] twice daily for 14 days. clopidogrel 75 mg oral tablet (1 source) P2Y12 Platelet Inhibitor Start: End: take 75 mg by mouth once daily Clopidogrel Discontinued 75 MG PO DAILY January 06, 2020 11:00pm July 17, 2021 4:12pm cyclobenzaprine hydrochloride 5 mg oral tablet (1 source) Muscle Relaxant Start: End: take 5 mg by mouth three times daily Cyclobenzaprine Discontinued 5 MG PO THREE TIMES A DAY 60 June 14, 2022 12:00am May 13, 2023 5:36pm Gauze Bandage (KERLIX) 2 1/4 X 3 -yard bndg (2 sources) Start: Gauze Bandage (KERLIX) 2 1/4 X 3 -yard bndg Indications: Luiz's gangrene of scrotum Apply 1 application to affected area twice daily. 30 Each 0 12/29/2022 Active Comment on above: Apply 1 application to affected area twice daily. Lactobac no.41/Bifidobact no.7 (PROBIOTIC-10 ORAL) (3 sources) Lactobac no.41/Bifidobact no.7 (PROBIOTIC-10 ORAL) Take by mouth once daily. 0 Active Lactobac no.41/B ifidobact no.7 (PROBIOTIC-10 ORAL) Take by mouth once daily. 0 Suspended Comment on above: Take by mouth once d aily. losartan potassium 25 mg oral tablet (1 source) Angiotensin 2 Receptor Tracy Start: 01-07-20 End: 02-03-20 take 25 mg by mouth once daily Losartan Discontinued 25 MG PO DAILY January 06, 2020 11:00pm February 03, 2020 5:48pm metroNIDAZOLE 500 mg oral tablet (2 sources) Nitroimidazole Antimicrobial Start: 01-09-20 End: 01-30-20 take 500 mg by mouth three times daily Metronidazole Discontinued 500 MG PO THREE TIMES A DAY January 07, 2023 11:00pm January 29, 2023 7:27pm Start: 12-29-2022 End: 01-12-2023 take 1 tablet by mouth every eight hours metroNIDAZOLE (FLAGYL) 500 mg tablet Take 1 tablet by mouth every 8 hours for 14 days. 42 tablet 0 12/29/2022 01/12/2023 Active Comment on above: Take 1 tablet by adrian every 8 hours for 14 days. nitroglycerin 0.4 mg sublingual tablet (3 sources) Nitrate Vasodilator Start: 11-24-19 End: 02-28-20 Nitroglycerin Discontinued 0.4 MG SL Q5M January 06, 2020 11:00pm February 27, 2022 7:19pm do not exceed 3 doses per episode Comment on above: DISSOLVE 1 TABLET UN ADALID THE TONGUE EVERY 5 MINUTES NEEDED. Non-Adherent Bandage (CURITY ABDOMINAL PAD) 5 X 9 bndg (2 sources) Start: 12-30-19 Non-Adherent Bandage (CURITY ABDOMINAL PAD) 5 X 9 bndg Indications: Luiz's gangrene of scrotum Apply 1 application to affected area twice daily. 60 Each 0 12/29/2022 Active Comment on above: Apply 1 application to affected area twice daily. oseltamivir 75 mg oral capsule (1 source) Neuraminidase Inhibitor Start: 06-27-20 18 End: 07-02-19 19 take 75 mg by mouth twice daily Oseltamivir Discontinued 75 MG PO TWICE A DAY 10 June 27, 2018 12:00am July 02, 2018 12:06am predniSONE 20 mg oral tablet (1 source) Start: 11-20-19 End: 11-30-19 take 40 mg by mouth once daily Prednisone Discontinued 40 MG PO DAILY 19 04November 19, 2019 11:00pm November 29, 2019 11:02pm Sodium Chloride (2 sources) Start: 12-30-19 Sodium Chloride 0.9 % soln Indications: Luiz's gangrene of scrotum 1 Units twice daily. Scrotum- cleanse area with N.S. or wound cleanser prior to dressing change. Pack open wounds with N.S. soaked kerlix and cover with ABD pads twice daily . then use mesh pants to hold dressing in place twice daily and as needed for soiling. 840 mL 0 12/29/2022 Active Comment on above: 1 Units twice daily. Scrotum- cleanse area with N.S. or wound cleanser prior to dressing change. Pack open wounds with N.S. soaked kerlix and cover with ABD pads twice daily . then use mesh pants to hold dressing in place twice daily and as needed for soiling. vitamin b12 1 mg extended release oral tablet (3 sources) Vitamin B12 Cyanocobalamin 1 ,000 mcg TbER Take by mouth once daily. 0 Active Comment on above: Take by mouth once d aily. Problems Active Problems Problem Classification Problem Date Documented Date Episodic/Chronic Acute myocardial infarction (3 sources) Myocardial infarction; Translations: [ST elevation (STEMI) myocardial infarction of unspecified site] Onset: 11-21-2019 02-10-2020 Chronic Allergic reactions (2 sources) Allergy, unspecified, initial encounter; Translations: [Allergic reaction to nickel] Onset: 12-25-2022 11-20-2019 Episodic Asthma (7 sources) Exacerbation of intermittent asthma; Translations: [Mild intermittent asthma with (acute) exacerbation] Onset: 06-14-2017 06-25-2017 Chronic Cardiac dysrhythmias (7 sources) Atrial flutter; Translations: [Unspecified atrial flutter] Onset: 06-25-2017 08-19-2017 Chronic Complication of device; implant or graft (3 sources) Altered bowel function; Translations: [Other complications of enterostomy] Onset: 08-20-2017 08-24-2017 Chronic Deficiency and other anemia (4 sources) Anemia; Translations: [Anemia, unspecified] Onset: 08-30-2017 08-30-2017 Episodic Disorders of lipid metabolism (4 sources) Pure hypercholesterolemia; Translations: [Pure hypercholesterolemia, unspecified] Onset: 11-25-2019 02-10-2020 Chronic Diverticulosis and diverticulitis (3 sources) Diverticulitis of large intestine; Translations: [Diverticulitis of large intestine without perforation or abscess without bleeding] Onset: 06-14-2017 08-20-2017 Chronic Essential hypertension (1 source) Hypertensive disorder; Translations: [Essential (primary) hypertension] 01-07-2020 Chronic Genitourinary symptoms and ill-defined conditions (1 source) Increased frequency of urination; Translations: [Frequency of micturition] 05-13-2023 Episodic Inflammatory conditions of male genital organs (6 sources) Abscess of scrotum; Translations: [Inflammatory disorders of scrotum] Onset: 12-25-2022 01-14-2023 Episodic Influenza (1 source) Influenza; Translations: [Influenza due to unidentified influenza virus with other respiratory manifestations] 06-27-2018 Episodic Nonspecific chest pain (1 source) Chest pain at rest; Translations: [Chest pain, unspecified] 11-20-2019 Episodic Nutritional deficiencies (3 sources) Deficiency of [...] soft tissue infection] Onset: 12-26-2022 Episodic Other hereditary and degenerative nervous system conditions (1 source) Restless legs; Translations: [Restless legs syndrome] 01-07-2020 Chronic Other inflammatory condition of skin (1 source) Pityriasis rosea; Translations: [Pityriasis rosea] 11-20-2019 Chronic Other lower respiratory disease (1 source) Wheezing; Translations: [Wheezing] Onset: 12-25-2022 Episodic Other lower respiratory disease (1 source) Wheezing; Translations: [Wheezing] 02-03-2020 Episodic Other male genital disorders (1 source) Pain in scrotum ; Translations: [Scrotal pain] 12-25-2022 Episodic Other upper respiratory disease (1 source) Seasonal allergy; Translations: [Other seasonal allergic rhinitis] 02-03-2020 Chronic Other upper respiratory disease (1 source) Acute bronchospasm; Translations: [Bronchospasm] Onset: 12-25-2022 Episodic Other upper respiratory disease (1 source) Bronchospasm; Translations: [Acute bronchospasm] 06-27-2018 Episodic Skin and subcutaneous tissue infections (1 source) Cutaneous abscess of face; Translations: [Cutaneous abscess of face] Onset: 03-29-2024 Episodic Spondylosis; intervertebral disc disorders; other back [...] 8 08-22-2017 Episodic Deficiency and other anemia (1 source) Other iron deficiency anemias; Translations: [Other iron deficiency anemias] Onset: 4 Episodic Deficiency and other anemia (1 source) Iron deficiency anemia, unspecified; Translations: [Iron deficiency anemia, unspecified] Onset: 4 Episodic Diabetes mellitus without complication (6 sources) [...] conditions (not mental disorders or infectious disease) (4 sources) Other specified abnormal findings of blood chemistry; Translations: [Other abnormal blood chemistry] Onset: 8 08-19-2017 Episodic Residual codes; unclassified (3 sources) Tobacco user; Translations: [Tobacco use] Onset: 0 11-23-2019 Episodic Unclassified (1 source) DDD 01-29-2022 Unclassified (1 source) divertiulits of the large intestine with perforation 01-29-2022 Unclassified (1 source) iloestomy then reversal aug 18 2017 01-29-2022 Viral infection (3 sources) Herpes simplex; Translations: [Herpesviral infection, unspecified] Onset: 8 08-03-2017 Episodic Results Test Name Value Interpretation Reference Range Facility Wound Cultureon 03-08-2024 WC No growth aerobically. Normal [facility] Comment on above: Performed By: #### L 503.0105, L503.6075, L503.6550, L501.9520, L501.9910, L100.0100, L500.4100, L500.4050 #### [facility] [address] [place], [place], [id number] Gram Stainon 03-07-2024 GS Gram Stain Very Rare Gram positive cocci 1+ White Blood Cells No Epithelial cells Normal [facility] Comment on above: Performed By: #### L 503.0105, L503.6075, L503.6550, L501.9520, L501.9910, L100.0100, L500.4100, L500.4050 #### [facility] [address] [place], [place], [id number] CBC W/Diff, Automatedon Absolute Lymph 1.88 X10 3/uL Normal 0.83-4.51 [facility] Comment on above: Performed By: #### L 500.4050, L100.0100 #### [facility] [address] [place], [address] Absolute Neut 2.9 X10 3/uL Normal 2.0-7.7 [facility] Comment on above: Performed By: #### L 500.4050, L100.0100 #### [facility] [address] [place], [address] Basophils/100 WBC (Bld) 0.5 % Normal 0-1 [facility] Comment on above: Performed By: #### L 500.4050, L100.0100 #### [facility] [address] [place], [address] Eosinophils/100 WBC (Bld) 3.3 % Normal 0-5 [facility] Comment on above: Performed By: #### L 500.4050, L100.0100 #### [facility] [address] [place], [address] Erythrocyte distribution width (RBC) [Ratio] 12.4 % Normal 11.6-14.6 [facility] Comment on above: Performed By: #### L 500.4050, L100.0100 #### [facility] [address] [place], [address] Hematocrit (Bld) [Volume fraction] 43.0 % Normal 40-54 [facility] Comment on above: Performed By: #### L 500.4050, L100.0100 #### [facility] [address] [place], [address] Hemoglobin (Bld) [Mass/Vol] 14.4 g/dL Normal 13.0-16.5 [facility] Comment on above: Performed By: #### L 500.4050, L100.0100 #### [facility] [address] [place], [address] IG% 0.300 Normal 0.0-0.9 [facility] Comment on above: Result Comment: IG% - Immature Granulocytes (promyelocytes, myelocytes and metamyelocytes) > 1% indicates that a LEFT SHIFT is Present. Performed By: #### L 500.4050, L100.0100 #### [facility] [address] [place], [address] Lymphocytes/100 WBC (Bld) 32.7 % Normal 19-41 [facility] Comment on above: Performed By: #### L 500.4050, L100.0100 #### [facility] [address] [place], [address] MCH (RBC) [Entitic mass] 31.3 pg Normal 27.0-32.0 [facility] Comment on above: Performed By: #### L 500.4050, L100.0100 #### [facility] [address] [place], [address] MCHC (RBC) [Mass/Vol] 33.5 g/dL Normal 32-36 [facility] Comment on above: Performed By: #### L 500.4050, L100.0100 #### [facility] [address] [place], [address] MCV (RBC) [Entitic vol] 93.5 fL Normal 80-94 [facility] Comment on above: Performed By: #### L 500.4050, L100.0100 #### [facility] [address] [place], [address] Monocytes/100 WBC (Bld) 12.9 % High 0-10 [facility] Comment on above: Performed By: #### L 500.4050, L100.0100 #### [facility] [address] [place], [address] Neutrophils/100 WBC (Bld) 50.3 % Normal 47-70 [facility] Comment on above: Performed By: #### L 500.4050, L100.0100 #### [facility] [address] [place], [address] Nucleated RBC (Bld) [#/Vol] 0 10*3/uL Normal 0-5 [facility] Comment on above: Performed By: #### L 500.4050, L100.0100 #### [facility] [address] [place], [address] Platelet mean volume (Bld) [Entitic vol] 12.6 fL High 6.2-12.0 [facility] Comment on above: Performed By: #### L 500.4050, L100.0100 #### [facility] [address] [place], [address] Platelets (Bld) [#/Vol] 119 10*3/uL Low 150-450 [facility] Comment on above: Performed By: #### L 500.4050, L100.0100 #### [facility] [address] [place], [address] RBC (Bld) [#/Vol] 4.60 10*6/uL Normal 4.6-6.2 [facility] Comment on above: Performed By: #### L 500.4050, L100.0100 #### [facility] [address] [place], [address] RDW SD 42.3 fl Normal 35.1-43.9 [facility] Comment on above: Performed By: #### L 500.4050, L100.0100 #### [facility] [address] [place], [address] WBC (Bld) [#/Vol] 5.8 10*3/uL Normal 4.4-11.0 [facility] Comment on above: Performed By: #### L 500.4050, L100.0100 #### [facility] [address] [place], [address] Comprehensive Metabolic Prof ilon 12-02-2023 Albumin [Mass/Vol] 3.5 g/dL Normal 3.2-5.0 [facility] Comment on above: Performed By: #### L 500.4050, L100.0100 #### [facility] [address] [place], [address] Albumin/Globulin [Mass ratio] 0.9 {ratio} Normal 0.9-2.4 [facility] Comment on above: Performed By: #### L 500.4050, L100.0100 #### [facility] [address] [place], [address] ALK P 96 U/L Normal 45-117 [facility] Comment on above: Performed By: #### L 500.4050, L100.0100 #### [facility] [address] [place], [address] ALT [Catalytic activity/Vol] 46 U/L Normal 16-61 [facility] Comment on above: Performed By: #### L 500.4050, L100.0100 #### [facility] [address] [place], [address] AST [Catalytic activity/Vol] 34 U/L Normal 15-37 [facility] Comment on above: Performed By: #### L 500.4050, L100.0100 #### [facility] [address] [place], [address] Bilirubin [Mass/Vol] 0.40 mg/dL Normal 0.20-1.00 [facility] Comment on above: Result Comment: For patients on eltrombopag therapy, use of Dimension [place] TBIL is not recommended. Performed By: #### L 500.4050, L100.0100 #### [facility] [address] [place], [address] BUN/CRE 11.0 RATIO Normal 10-20 [facility] Comment on above: Performed By: #### L 500.4050, L100.0100 #### [facility] [address] [place], [address] CA,Total 9.0 mg/dL Normal 8.5-10.1 [facility] Comment on above: Performed By: #### L 500.4050, L100.0100 #### [facility] [address] [place], [address] Chloride [Moles/Vol] 108 mmol/L High 98-107 [facility] Comment on above: Performed By: #### L 500.4050, L100.0100 #### [facility] [address] [place], [address] CO2 [Moles/Vol] 24.0 mmol/L Normal 21.0-32.0 [facility] Comment on above: Performed By: #### L 500.4050, L100.0100 #### [facility] [address] [place], [address] Creatinine [Mass/Vol] 1.27 mg/dL Normal 0.70-1.30 [facility] Comment on above: Result Comment: The validity of the calculated GFR GFRAA in patients over 70 years has not been determined. Clinical correlation is essential. Performed By: #### L 500.4050, L100.0100 #### [facility] [address] [place], [address] EST GFR - AA 72 mL/min Normal >60 [facility] Comment on above: Result Comment: Afri can Cameroonian GFR Calc Performed By: #### L 500.4050, L100.0100 #### [facility] [address] [place], [address] GAP 5 Normal 5-15 [facility] Comment on above: Performed By: #### L 500.4050, L100.0100 #### [facility] [address] [place], [address] GFR/1.73 sq M.predicted among non-blacks MDRD (S/P/Bld) [Vol rate/Area] 60 mL/min/{1.73_m2} Normal >60 [facility] Comment on above: Result Comment: Non- GFR Calc Performed By: #### L 500.4050, L100.0100 #### [facility] [address] [place], [address] Globulin (S) [Mass/Vol] 3.8 g/dL Normal 2.2-4.2 [facility] Comment on above: Performed By: #### L 500.4050, L100.0100 #### [facility] [address] [place], [address] Glucose [Mass/Vol] 103 mg/dL Normal 74-106 [facility] Comment on above: Result Comment: Fast ing Glucose result from 100 to 125 mg/dL suggests IMPAIRED HOMEOSTASIS per A.D.A. criteria. Performed By: #### L 500.4050, L100.0100 #### [facility] [address] [place], [address] Potassium [Moles/Vol] 4.3 mmol/L Normal 3.5-5.1 [facility] Comment on above: Performed By: #### L 500.4050, L100.0100 #### [facility] [address] [place], [address] Sodium [Moles/Vol] 137 mmol/L Normal 136-145 [facility] Comment on above: Performed By: #### L 500.4050, L100.0100 #### [facility] [address] [place], [address] T PROT 7.3 g/dL Normal 6.4-8.2 [facility] Comment on above: Performed By: #### L 500.4050, L100.0100 #### [facility] [address] [place], [address] Urea nitrogen [Mass/Vol] 14 mg/dL Normal 7-18 [facility] Comment on above: Performed By: #### L 500.4050, L100.0100 #### [facility] [address] [place], [address] CBC W/Diff, Automatedon 08-02 Absolute Lymph 1.84 X10 3/uL Normal 0.83-4.51 [facility] Comment on above: Performed By: #### L 503.0105, L503.6075, L503.6550, L501.9520, L501.9910, L100.0100, L500.4100, L500.4050 #### [facility] [address] [place], [address] Absolute Neut 3.6 X10 3/uL Normal 2.0-7.7 [facility] Comment on above: Performed By: #### L 503.0105, L503.6075, L503.6550, L501.9520, L501.9910, L100.0100, L500.4100, L500.4050 #### [facility] [address] [place], [address] Basophils/100 WBC (Bld) 0.6 % Normal 0-1 [facility] Comment on above: Performed By: #### L 503.0105, L503.6075, L503.6550, L501.9520, L501.9910, L100.0100, L500.4100, L500.4050 #### [facility] [address] [place], [address] Eosinophils/100 WBC (Bld) 4.7 % Normal 0-5 [facility] Comment on above: Performed By: #### L 503.0105, L503.6075, L503.6550, L501.9520, L501.9910, L100.0100, L500.4100, L500.4050 #### [facility] [address] [place], [address] Erythrocyte distribution width (RBC) [Ratio] 12.9 % Normal 11.6-14.6 [facility] Comment on above: Performed By: #### L 503.0105, L503.6075, L503.6550, L501.9520, L501.9910, L100.0100, L500.4100, L500.4050 #### [facility] [address] [place], [address] Hematocrit (Bld) [Volume fraction] 46.6 % Normal 40-54 [facility] Comment on above: Performed By: #### L 503.0105, L503.6075, L503.6550, L501.9520, L501.9910, L100.0100, L500.4100, L500.4050 #### [facility] [address] [place], [address] Hemoglobin (Bld) [Mass/Vol] 15.7 g/dL Normal 13.0-16.5 [facility] Comment on above: Performed By: #### L 503.0105, L503.6075, L503.6550, L501.9520, L501.9910, L100.0100, L500.4100, L500.4050 #### [facility] [address] [place], [address] IG% 0.300 Normal 0.0-0.9 [facility] Comment on above: Result Comment: IG% - Immature Granulocytes (promyelocytes, myelocytes and metamyelocytes) > 1% indicates that a LEFT SHIFT is Present. Performed By: #### L 503.0105, L503.6075, L503.6550, L501.9520, L501.9910, L100.0100, L500.4100, L500.4050 #### [facility] [address] [place], [address] Lymphocytes/100 WBC (Bld) 28.1 % Normal 19-41 [facility] Comment on above: Performed By: #### L 503.0105, L503.6075, L503.6550, L501.9520, L501.9910, L100.0100, L500.4100, L500.4050 #### [facility] [address] [place], [address] MCH (RBC) [Entitic mass] 31.0 pg Normal 27.0-32.0 [facility] Comment on above: Performed By: #### L 503.0105, L503.6075, L503.6550, L501.9520, L501.9910, L100.0100, L500.4100, L500.4050 #### [facility] [address] [place], [address] MCHC (RBC) [Mass/Vol] 33.7 g/dL Normal 32-36 [facility] Comment on above: Performed By: #### L 503.0105, L503.6075, L503.6550, L501.9520, L501.9910, L100.0100, L500.4100, L500.4050 #### [facility] [address] [place], [address] MCV (RBC) [Entitic vol] 92.1 fL Normal 80-94 [facility] Comment on above: Performed By: #### L 503.0105, L503.6075, L503.6550, L501.9520, L501.9910, L100.0100, L500.4100, L500.4050 #### [facility] [address] [place], [address] Monocytes/100 WBC (Bld) 10.8 % High 0-10 [facility] Comment on above: Performed By: #### L 503.0105, L503.6075, L503.6550, L501.9520, L501.9910, L100.0100, L500.4100, L500.4050 #### [facility] [address] [place], [address] Neutrophils/100 WBC (Bld) 55.5 % Normal 47-70 [facility] Comment on above: Performed By: #### L 503.0105, L503.6075, L503.6550, L501.9520, L501.9910, L100.0100, L500.4100, L500.4050 #### [facility] [address] [place], [address] Nucleated RBC (Bld) [#/Vol] 0 10*3/uL Normal 0-5 [facility] Comment on above: Performed By: #### L 503.0105, L503.6075, L503.6550, L501.9520, L501.9910, L100.0100, L500.4100, L500.4050 #### [facility] [address] [place], [address] Platelet mean volume (Bld) [Entitic vol] 12.7 fL High 6.2-12.0 [facility] Comment on above: Performed By: #### L 503.0105, L503.6075, L503.6550, L501.9520, L501.9910, L100.0100, L500.4100, L500.4050 #### [facility] [address] [place], [address] Platelets (Bld) [#/Vol] 126 10*3/uL Low 150-450 [facility] Comment on above: Performed By: #### L 503.0105, L503.6075, L503.6550, L501.9520, L501.9910, L100.0100, L500.4100, L500.4050 #### [facility] [address] [place], [address] RBC (Bld) [#/Vol] 5.06 10*6/uL Normal 4.6-6.2 [facility] Comment on above: Performed By: #### L 503.0105, L503.6075, L503.6550, L501.9520, L501.9910, L100.0100, L500.4100, L500.4050 #### [facility] [address] [place], [address] RDW SD 43.3 fl Normal 35.1-43.9 [facility] Comment on above: Performed By: #### L 503.0105, L503.6075, L503.6550, L501.9520, L501.9910, L100.0100, L500.4100, L500.4050 #### [facility] [address] [place], [address] WBC (Bld) [#/Vol] 6.6 10*3/uL Normal 4.4-11.0 [facility] Comment on above: Performed By: #### L 503.0105, L503.6075, L503.6550, L501.9520, L501.9910, L100.0100, L500.4100, L500.4050 #### [facility] [address] [place], [address] Ferritinon 08-22-2023 Ferritin [Mass/Vol] 34 ng/mL Normal 26-388 [facility] Comment on above: Performed By: #### L 503.0105, L503.6075, L503.6550, L501.9520, L501.9910, L100.0100, L500.4100, L500.4050 #### [facility] [address] [place], [place], [id number] Iron Binding Capacity,Totalo n 08-22-2023 TIBC 322 ug/dL Normal 250-450 [facility] Comment on above: Performed By: #### L 503.0105, L503.6075, L503.6550, L501.9520, L501.9910, L100.0100, L500.4100, L500.4050 #### [facility] [address] [place], [place], [id number] Vitamin B12on 05-14-2023 Cobalamin (Vitamin B12) [Mass/Vol] 629 pg/mL Normal 211-911 [facility] Comment on above: Performed By: #### L 503.0105, L503.6075, L503.6550, L501.9520, L501.9910, L100.0100, L500.4100, L500.4050 #### [facility] [address] [place], [place], [id number] Absolute lymphocyte countOrd ered By: Vero Green on 05-13-2023 Lymphocytes Auto (Unsp spec) [#/Vol] 1.65 10*3/uL 0.83-4.51 [facility] Basophil percentageOrdered B y: Vero Green on 05-13-2023 Basophils/100 WBC (Bld) 0.5 % 0-1 [facility] Bilirubin [Mass/Vol] 0.50 mg/dL 0.20-1.00 [facility] Comment on above: For patients on eltr ombopag therapy, use of Dimension [place] TBIL is not recommended. Chloride [Moles/Vol] 109 mmol/L 98-107 [facility] Cholesterol [Mass/Vol] 93 mg/dL <[address] [facility] Comment on above: <200 mg/dL Desirable 200-240 mg/dL Borderline >240 mg/dL High Risk Eosinophils/100 WBC (Bld) 5.2 % 0-5 [facility] Glucose [Mass/Vol] 128 mg/dL 74-106 [facility] Comment on above: Fasting Glucose resu lt greater than or equal to 126 mg/dL suggests DIABETES MELLITUS per A.D.A. criteria. Neutrophils (Bld) [#/Vol] 3.5 10*3/uL 2.0-7.7 [facility] Neutrophils/100 WBC (Bld) 57.3 % 47-70 [facility] Potassium [Moles/Vol] 4.0 mmol/L 3.5-5.1 [facility] Protein [Mass/Vol] 7.3 g/dL 6.4-8.2 [facility] Sodium [Moles/Vol] 138 mmol/L 136-145 [facility] Triglyceride [Mass/Vol] 178 mg/dL <199 [facility] Comment on above: The drugs N-Acetylcy steine and Metamizole may falsely depress this assay.Serum Triglycerides Reference Interval Normal <150 mg/dL Borderline high 150 - 199 mg/dL High 200 - 499 mg/dL Very High > or = 500 mg/dL WBC (Bld) [#/Vol] 6.1 10*3/uL 4.4-11.0 [facility] Blood erythrocytes count (nu mber/volume)Ordered By: Vero Green on 05-13-2023 RBC (Bld) [#/Vol] 4.93 10*6/uL 4.6-6.2 [facility] Blood hemoglobin measurement (mass/volume)Ordered By: Vero Green on 05-13-2023 Hemoglobin (Bld) [Mass/Vol] 13.8 g/dL 13.0-16.5 [facility] Blood lymphocytes/100 leukoc ytesOrdered By: Vero Green on 05-13-2023 Lymphocytes/100 WBC (Bld) 26.9 % 19-41 [facility] Blood monocytes/100 leukocyt esOrdered By: Vero Green on 05-13-2023 Monocytes/100 WBC (Bld) 9.9 % 0-10 [facility] Blood platelet mean volumeOr dered By: Vero Green on 05-13-2023 Platelet mean volume (Bld) [Entitic vol] 12.9 fL 6.2-12.0 [facility] CBC W/Diff, Automatedon 11-07 03-2022 Absolute Lymph 1.65 X10 3/uL Normal 0.83-4.51 [facility] Comment on above: Performed By: #### L 503.0105, L503.6075, L503.6550, L501.9520, L501.9910, L100.0100, L500.4100, L500.4050 #### [facility] [address] [place], [address] Absolute Neut 3.5 X10 3/uL Normal 2.0-7.7 [facility] Comment on above: Performed By: #### L 503.0105, L503.6075, L503.6550, L501.9520, L501.9910, L100.0100, L500.4100, L500.4050 #### [facility] [address] [place], [address] Basophils/100 WBC (Bld) 0.5 % Normal 0-1 [facility] Comment on above: Performed By: #### L 503.0105, L503.6075, L503.6550, L501.9520, L501.9910, L100.0100, L500.4100, L500.4050 #### [facility] [address] [place], [address] Eosinophils/100 WBC (Bld) 5.2 % High 0-5 [facility] Comment on above: Performed By: #### L 503.0105, L503.6075, L503.6550, L501.9520, L501.9910, L100.0100, L500.4100, L500.4050 #### [facility] [address] [place], [address] Erythrocyte distribution width (RBC) [Ratio] 14.1 % Normal 11.6-14.6 [facility] Comment on above: Performed By: #### L 503.0105, L503.6075, L503.6550, L501.9520, L501.9910, L100.0100, L500.4100, L500.4050 #### [facility] [address] [place], [address] Hematocrit (Bld) [Volume fraction] 42.4 % Normal 40-54 [facility] Comment on above: Performed By: #### L 503.0105, L503.6075, L503.6550, L501.9520, L501.9910, L100.0100, L500.4100, L500.4050 #### [facility] [address] [place], [address] Hemoglobin (Bld) [Mass/Vol] 13.8 g/dL Normal 13.0-16.5 [facility] Comment on above: Performed By: #### L 503.0105, L503.6075, L503.6550, L501.9520, L501.9910, L100.0100, L500.4100, L500.4050 #### [facility] [address] [place], [address] IG% 0.200 Normal 0.0-0.9 [facility] Comment on above: Result Comment: IG% - Immature Granulocytes (promyelocytes, myelocytes and metamyelocytes) > 1% indicates that a LEFT SHIFT is Present. Performed By: #### L 503.0105, L503.6075, L503.6550, L501.9520, L501.9910, L100.0100, L500.4100, L500.4050 #### [facility] [address] [place], [address] Lymphocytes/100 WBC (Bld) 26.9 % Normal 19-41 [facility] Comment on above: Performed By: #### L 503.0105, L503.6075, L503.6550, L501.9520, L501.9910, L100.0100, L500.4100, L500.4050 #### [facility] [address] [place], [address] MCH (RBC) [Entitic mass] 28.0 pg Normal 27.0-32.0 [facility] Comment on above: Performed By: #### L 503.0105, L503.6075, L503.6550, L501.9520, L501.9910, L100.0100, L500.4100, L500.4050 #### [facility] [address] [place], [address] MCHC (RBC) [Mass/Vol] 32.5 g/dL Normal 32-36 [facility] Comment on above: Performed By: #### L 503.0105, L503.6075, L503.6550, L501.9520, L501.9910, L100.0100, L500.4100, L500.4050 #### [facility] [address] [place], [address] MCV (RBC) [Entitic vol] 86.0 fL Normal 80-94 [facility] Comment on above: Performed By: #### L 503.0105, L503.6075, L503.6550, L501.9520, L501.9910, L100.0100, L500.4100, L500.4050 #### [facility] [address] [place], [address] Monocytes/100 WBC (Bld) 9.9 % Normal 0-10 [facility] Comment on above: Performed By: #### L 503.0105, L503.6075, L503.6550, L501.9520, L501.9910, L100.0100, L500.4100, L500.4050 #### [facility] [address] [place], [address] Neutrophils/100 WBC (Bld) 57.3 % Normal 47-70 [facility] Comment on above: Performed By: #### L 503.0105, L503.6075, L503.6550, L501.9520, L501.9910, L100.0100, L500.4100, L500.4050 #### [facility] [address] [place], [address] Nucleated RBC (Bld) [#/Vol] 0 10*3/uL Normal 0-5 [facility] Comment on above: Performed By: #### L 503.0105, L503.6075, L503.6550, L501.9520, L501.9910, L100.0100, L500.4100, L500.4050 #### [facility] [address] [place], [address] Platelet mean volume (Bld) [Entitic vol] 12.9 fL High 6.2-12.0 [facility] Comment on above: Performed By: #### L 503.0105, L503.6075, L503.6550, L501.9520, L501.9910, L100.0100, L500.4100, L500.4050 #### [facility] [address] [place], [address] Platelets (Bld) [#/Vol] 124 10*3/uL Low 150-450 [facility] Comment on above: Performed By: #### L 503.0105, L503.6075, L503.6550, L501.9520, L501.9910, L100.0100, L500.4100, L500.4050 #### [facility] [address] [place], [address] RBC (Bld) [#/Vol] 4.93 10*6/uL Normal 4.6-6.2 [facility] Comment on above: Performed By: #### L 503.0105, L503.6075, L503.6550, L501.9520, L501.9910, L100.0100, L500.4100, L500.4050 #### [facility] [address] [place], [place], [id number] RDW SD 43.8 fl Normal 35.1-43.9 [facility] Comment on above: Performed By: #### L 503.0105, L503.6075, L503.6550, L501.9520, L501.9910, L100.0100, L500.4100, L500.4050 #### [facility] [address] [place], [address] WBC (Bld) [#/Vol] 6.1 10*3/uL Normal 4.4-11.0 [facility] Comment on above: Performed By: #### L 503.0105, L503.6075, L503.6550, L501.9520, L501.9910, L100.0100, L500.4100, L500.4050 #### [facility] [address] [place], [address] Comprehensive Metabolic Prof [facility] 05-13-2023 Albumin [Mass/Vol] 3.5 g/dL Normal 3.2-5.0 [facility] Comment on above: Performed By: #### L 503.0105, L503.6075, L503.6550, L501.9520, L501.9910, L100.0100, L500.4100, L500.4050 #### [facility] [address] [place], [address] Albumin/Globulin [Mass ratio] 0.9 {ratio} Normal 0.9-2.4 [facility] Comment on above: Performed By: #### L 503.0105, L503.6075, L503.6550, L501.9520, L501.9910, L100.0100, L500.4100, L500.4050 #### [facility] [address] [place], [address] ALK P 91 U/L Normal 45-117 [facility] Comment on above: Performed By: #### L 503.0105, L503.6075, L503.6550, L501.9520, L501.9910, L100.0100, L500.4100, L500.4050 #### [facility] [address] [place], [address] ALT [Catalytic activity/Vol] 37 U/L Normal 16-61 [facility] Comment on above: Performed By: #### L 503.0105, L503.6075, L503.6550, L501.9520, L501.9910, L100.0100, L500.4100, L500.4050 #### [facility] [address] [place], [address] AST [Catalytic activity/Vol] 22 U/L Normal 15-37 [facility] Comment on above: Performed By: #### L 503.0105, L503.6075, L503.6550, L501.9520, L501.9910, L100.0100, L500.4100, L500.4050 #### [facility] [address] [place], [address] Bilirubin [Mass/Vol] 0.50 mg/dL Normal 0.20-1.00 [facility] Comment on above: Result Comment: For patients on eltrombopag therapy, use of Dimension [place] TBIL is not recommended. Performed By: #### L 503.0105, L503.6075, L503.6550, L501.9520, L501.9910, L100.0100, L500.4100, L500.4050 #### [facility] [address] [place], [address] BUN/CRE 11.1 RATIO Normal 10-20 [facility] Comment on above: Performed By: #### L 503.0105, L503.6075, L503.6550, L501.9520, L501.9910, L100.0100, L500.4100, L500.4050 #### [facility] [address] [place], [address] CA,Total 8.4 mg/dL Low 8.5-10.1 [facility] Comment on above: Performed By: #### L 503.0105, L503.6075, L503.6550, L501.9520, L501.9910, L100.0100, L500.4100, L500.4050 #### [facility] [address] [place], [address] Chloride [Moles/Vol] 109 mmol/L High 98-107 [facility] Comment on above: Performed By: #### L 503.0105, L503.6075, L503.6550, L501.9520, L501.9910, L100.0100, L500.4100, L500.4050 #### [facility] [address] [place], [address] CO2 [Moles/Vol] 23.0 mmol/L Normal 21.0-32.0 [facility] Comment on above: Performed By: #### L 503.0105, L503.6075, L503.6550, L501.9520, L501.9910, L100.0100, L500.4100, L500.4050 #### [facility] [address] [place], [address] Creatinine [Mass/Vol] 1.26 mg/dL Normal 0.70-1.30 [facility] Comment on above: Result Comment: The validity of the calculated GFR GFRAA in patients over 70 years has not been determined. Clinical correlation is essential. Performed By: #### L 503.0105, L503.6075, L503.6550, L501.9520, L501.9910, L100.0100, L500.4100, L500.4050 #### [facility] [address] [place], [place], [id number] (032) EST GFR - AA 73 mL/min Normal >60 [facility] Comment on above: Result Comment: Afri can Cameroonian GFR Calc Performed By: #### L 503.0105, L503.6075, L503.6550, L501.9520, L501.9910, L100.0100, L500.4100, L500.4050 #### [facility] [address] [place], [address] GAP 6 Normal 5-15 [facility] Comment on above: Performed By: #### L 503.0105, L503.6075, L503.6550, L501.9520, L501.9910, L100.0100, L500.4100, L500.4050 #### [facility] [address] [place], [address] GFR/1.73 sq M.predicted among non-blacks MDRD (S/P/Bld) [Vol rate/Area] 61 mL/min/{1.73_m2} Normal >60 [facility] Comment on above: Result Comment: Non- GFR Calc Performed By: #### L 503.0105, L503.6075, L503.6550, L501.9520, L501.9910, L100.0100, L500.4100, L500.4050 #### [facility] [address] [place], [place], [id number] Globulin (S) [Mass/Vol] 3.8 g/dL Normal 2.2-4.2 [facility] Comment on above: Performed By: #### L 503.0105, L503.6075, L503.6550, L501.9520, L501.9910, L100.0100, L500.4100, L500.4050 #### [facility] [address] [place], [address] Glucose [Mass/Vol] 128 mg/dL High 74-106 [facility] Comment on above: Result Comment: Fast ing Glucose result greater than or equal to 126 mg/dL suggests DIABETES MELLITUS per A.D.A. criteria. Performed By: #### L 503.0105, L503.6075, L503.6550, L501.9520, L501.9910, L100.0100, L500.4100, L500.4050 #### [facility] [address] [place], [address] Potassium [Moles/Vol] 4.0 mmol/L Normal 3.5-5.1 [facility] Comment on above: Performed By: #### L 503.0105, L503.6075, L503.6550, L501.9520, L501.9910, L100.0100, L500.4100, L500.4050 #### [facility] [address] [place], [address] Sodium [Moles/Vol] 138 mmol/L Normal 136-145 [facility] Comment on above: Performed By: #### L 503.0105, L503.6075, L503.6550, L501.9520, L501.9910, L100.0100, L500.4100, L500.4050 #### [facility] [address] [place], [address] T PROT 7.3 g/dL Normal 6.4-8.2 [facility] Comment on above: Performed By: #### L 503.0105, L503.6075, L503.6550, L501.9520, L501.9910, L100.0100, L500.4100, L500.4050 #### [facility] [address] [place], [address] Urea nitrogen [Mass/Vol] 14 mg/dL Normal 7-18 [facility] Comment on above: Performed By: #### L 503.0105, L503.6075, L503.6550, L501.9520, L501.9910, L100.0100, L500.4100, L500.4050 #### [facility] [address] [place], [address] Determination of erythrocyte mean corpuscular volume (MCV)Ordered By: Vero Green on 05-13-2023 MCV (RBC) [Entitic vol] 86.0 fL 80-94 [facility] Ferritinon 05-13-2023 Ferritin [Mass/Vol] 13 ng/mL Low 26-388 [facility] Comment on above: Performed By: #### L 503.0105, L503.6075, L503.6550, L501.9520, L501.9910, L100.0100, L500.4100, L500.4050 #### [facility] [address] [place], [address] Hematocrit Auto (Bld) [Volum e fraction]Ordered By: Vero Green on 05-13-2023 Hematocrit (Bld) [Volume fraction] 42.4 % 40-54 [facility] Iron Binding Capacity,Totalo n 05-13-2023 TIBC 337 ug/dL Normal 250-450 [facility] Comment on above: Performed By: #### L 503.0105, L503.6075, L503.6550, L501.9520, L501.9910, L100.0100, L500.4100, L500.4050 #### [facility] [address] [place], [address] Laboratory - Chemistry and C hemistry - challengeOrdered By: Vero Green on 05-13-2023 ALP [Catalytic activity/Vol] 91 U/L 45-117 [facility] ALT [Catalytic activity/Vol] 37 U/L 16-61 [facility] CO2 [Moles/Vol] 23.0 mmol/L 21.0-32.0 [facility] Cobalamin (Vitamin B12) [Mass/Vol] 629 pg/mL 211-911 [facility] Globulin (S) [Mass/Vol] 3.8 g/dL 2.2-4.2 [facility] Urea nitrogen/Creatinine [Mass ratio] 11.1 mg/mg 10-20 [facility] Laboratory - Hematology and Cell countsOrdered By: Vero Green on 05-13-2023 Erythrocyte distribution width (RBC) [Entitic vol] 43.8 fL 35.1-43.9 [facility] Erythrocyte distribution width (RBC) [Ratio] 14.1 % 11.6-14.6 [facility] Immature granulocytes/100 WBC (Bld) 0.200 % 0.0-0.9 [facility] Comment on above: IG% - Immature Granu locytes (promyelocytes, myelocytes and metamyelocytes) > 1% indicates that a LEFT SHIFT is Present. MCH (RBC) [Entitic mass] 28.0 pg 27.0-32.0 [facility] Nucleated RBC/100 WBC (Bld) [Ratio] 0 % 0-5 [facility] Lipid Profileon 05-13-2023 Cholesterol [Mass/Vol] 93 mg/dL Normal [address] [facility] Comment on above: Result Comment: <200 mg/dL Desirable 200-240 mg/dL Borderline >240 mg/dL High Risk Performed By: #### L 503.0105, L503.6075, L503.6550, L501.9520, L501.9910, L100.0100, L500.4100, L500.4050 #### [facility] [address] [place], [address] Cholesterol in HDL [Mass/Vol] 37 mg/dL Low [facility] Comment on above: Result Comment: The drugs N-Acetylcysteine and Metamizole may falsely depress this assay. Reference Range HDL <40 mg/dL Low HDL Cholesterol HDL >or= 60 mg/dL High HDL Cholesterol Performed By: #### L 503.0105, L503.6075, L503.6550, L501.9520, L501.9910, L100.0100, L500.4100, L500.4050 #### [facility] [address] [place], [address] Cholesterol in LDL [Mass/Vol] 20 mg/dL Normal 0-130 [facility] Comment on above: Performed By: #### L 503.0105, L503.6075, L503.6550, L501.9520, L501.9910, L100.0100, L500.4100, L500.4050 #### [facility] [address] [place], [address] Cholesterol in VLDL [Mass/Vol] 36 mg/dL Normal 5-40 [facility] Comment on above: Performed By: #### L 503.0105, L503.6075, L503.6550, L501.9520, L501.9910, L100.0100, L500.4100, L500.4050 #### [facility] [address] [place], [address] Triglyceride [Mass/Vol] 178 mg/dL Normal [facility] Comment on above: Result Comment: The drugs N-Acetylcysteine and Metamizole may falsely depress this assay. Serum Triglycerides Reference Interval Normal <150 mg/dL Borderline high 150 - 199 mg/dL High 200 - 499 mg/dL Very High > or = 500 mg/dL Performed By: #### L 503.0105, L503.6075, L503.6550, L501.9520, L501.9910, L100.0100, L500.4100, L500.4050 #### [facility] [address] [place], [address] MCHC Auto (RBC) [Mass/Vol]Or dered By: Vero Green on 05-13-2023 MCHC (RBC) [Mass/Vol] 32.5 g/dL 32-36 [facility] No Panel InformationOrdered By: Vero Green on 05-13-2023 Estimated GFR (MDRD) Amer 73 mL/min >60 [facility] Comment on above: GFR Calc Estimated GFR (MDRD) Non-Af Amer 61 mL/min >60 [facility] Comment on above: Non- GFR Calc Prostate Specific Antigen Screen 0.54 ng/mL 0.00-4.00 [facility] Comment on above: This test was perfor med using the TPSA assay method for theTitansan chemistry system. Values obtained with differentassay methods cannot be used interchangably.When changing PSA assays in the course of monitoring apatient, additional sequential testing should be carriedout to confirm baseline values. Thyroid Stimulating Hormone (TSH) 1.06 uIU/mL 0.358-3.74 [facility] Total Iron Binding Capacity 337 ug/dL 250-450 [facility] PSA,Total - Annual Screenon 05-13-2023 PSA,TOT SCREEN 0.54 ng/mL Normal 0.00-4.00 [facility] Comment on above: Result Comment: This test was performed using the TPSA assay method for the Titansan chemistry system. Values obtained with different assay methods cannot be used interchangably. When changing PSA assays in the course of monitoring a patient, additional sequential testing should be carried out to confirm baseline values. Performed By: #### L 503.0105, L503.6075, L503.6550, L501.9520, L501.9910, L100.0100, L500.4100, L500.4050 #### [facility] [address] [place], [address] Platelets bldOrdered By: Shane Green on 05-13-2023 Platelets (Bld) [#/Vol] 124 10*3/uL 150-450 [facility] Serum or plasma albumin estelita urement (mass/volume)Ordered By: Vero Green on 05-13-2023 Albumin [Mass/Vol] 3.5 g/dL 3.2-5.0 [facility] Serum or plasma albumin/glob ulin mass ratioOrdered By: Vero Green on 05-13-2023 Albumin/Globulin [Mass ratio] 0.9 {ratio} 0.9-2.4 [facility] Serum or plasma calcium estelita urement (mass/volume)Ordered By: Vero Green on 05-13-2023 Calcium [Mass/Vol] 8.4 mg/dL 8.5-10.1 [facility] Serum or plasma cholesterol in HDL measurement (mass/volume)Ordered By: Vero Green on 05-13-2023 Cholesterol in HDL [Mass/Vol] 37 mg/dL >40 [facility] Comment on above: The drugs N-Acetylcy steine and Metamizole may falsely depress this assay. Reference Range HDL <40 mg/dL Low HDL Cholesterol HDL >or= 60 mg/dL High HDL Cholesterol Serum or plasma cholesterol in VLDL measurement (mass/volume)Ordered By: Vero Green on 05-13-2023 Cholesterol in VLDL [Mass/Vol] 36 mg/dL 5-40 [facility] Serum or plasma creatinine m easurement (mass/volume)Ordered By: Vero Green on 05-13-2023 Creatinine [Mass/Vol] 1.26 mg/dL 0.70-1.30 [facility] Comment on above: The validity of the calculated GFR & GFRAA in patients over 70 years has not been determined. Clinical correlation is essential. Serum or plasma ferritin camilla surement (mass/volume)Ordered By: Vero Green on 05-13-2023 Ferritin [Mass/Vol] 13 ng/mL 26-388 [facility] Serum or plasma low density lipoprotein (LDL) cholesterol measurement (mass/volume)Ordered By: Vero Green on 05-13-2023 Cholesterol in LDL [Mass/Vol] 20 mg/dL 0-130 [facility] Serum or plasma urea nitroge n measurement (mass/volume)Ordered By: Vero Green on 05-13-2023 Urea nitrogen [Mass/Vol] 14 mg/dL 7-18 [facility] Thin prep Papanicolaou smear with manual screeningOrdered By: Vero Green on 05-13-2023 Thin prep Papanicolaou smear with manual screening 22 U/L 15-37 [facility] Thin prep Papanicolaou smear with manual screening 6 5-15 [facility] Thyroid Stim Hormone (TSH)on 05-13-2023 TSH 1.06 uIU/mL Normal 0.358-3.74 [facility] Comment on above: Performed By: #### L 503.0105, L503.6075, L503.6550, L501.9520, L501.9910, L100.0100, L500.4100, L500.4050 #### [facility] [place] [address], [address] CNOVon 01-14-2023 CNOV Office Visit (AKURFL ) -------- TEOFILO MAXWELL ([id number]) 1955 [facility] Date Time Provider Department 01/14/23 11:15 AM DAVID ZENDEJAS During your visit today, we recorded the following information about you: Respiration Blood pressure Height 18/minute 132/77 1.854 m David Zendejas MD 01/14/2023 11:26 AM Signed [facility] ESTABLISHED PATIENT NOTE PATIENT: Teofilo Maxwell (67 year old) PCP: Vero Green APRN.CNP DATE OF SERVICE: 01/14/2023 ASSESSMENT: 1. Scrotal [...] legs syndrome) STEMI (ST elevation myocardial infarction) (HCC) PAST SURGICAL HISTORY Procedure Laterality Date PAST [...] Smokeless tobacco: Never Tobacco comments: quit in [facility] Vaping Use Vaping Use: Never used Substance Use Topics Alcohol use: No Drug use: Not Currently Types: Marijuana PHYSICAL EXAMINATION: BP 132/77 Resp 18 Ht 185.4 cm (6' 1) BMI 28.04 kg/m? Genitourinary: Posterior scrotal surgical wound. No necrosis, eschar or fluctuance. Healthy, viable healing tissue with only 1 cm of wound depth. Constitutional: In no acute distress. Well appearing. Respiratory: Normal respiratory effort without use of accessory muscles. Musculoskeletal: Normal gait and station Cardiovascular: Regular rate Gastrointestinal: Nondistended DATA (more content not included)... Normal [facility] CNOVon 01-04-2023 OV Office Visit (AMINATA ) -------- TEOFILO MAXWELL ([id number]) 1955 M [facility] Date Time Provider Department 01/04/23 11:15 AM MICAELA GAITAN During your visit today, we recorded the following information about you: Pulse Height 97/minute 1.854 m Micaela Gaitan PA-C 01/04/2023 11:39 AM Signed ESTABLISHED PATIENT OFFICE VISIT HISTORY OF PRESENT ILLNESS: Teofilo Maxwell is a 67 year old male, Ht 185.4 cm (6' 1) BMI 28.04 kg/m2 with a PMH significant [...] (no units) Date Value 11/22/2019 Trace Specific [place], Ur (no units) Date Value 11/22/2019 >1.045 [...] legs syndrome) STEMI (ST elevation myocardial infarction) ([facility]) FAMILY HISTORY Problem Relation Age of Onset Heart Mother Kidney Disease Mother other (heart attack at age 67) Mother other (valve replacement) Mother other (unknown history) Father Social History Tobacco Use Smoking status: Every Day Packs/day: 0.10 Types: Cigarettes Smokeless tobacco: Never Tobacco comments: quit in [facility] Vaping Use Vaping Use: Never used Substance [...] as directed Follow up with dr. Sy Gaitan PA-C I spent a total of 20 minutes on the date of the service which included preparing to see the patient, [id number] patient care, completing clinical documentation, performing a medically appropriate examination, counseling and educating the patient/family/caregiver , and ordering medications, tests, or procedures. Allergies As of Date: 01/04/2023 Noted Allergy Reaction CLINDAMYCIN 12/25/2022 12 - Shortness of Breath DILAUDID (HYDROMORPHONE (BULK)) 06/15/2017 12 - Shortness of Breath LISINOPRIL 01/06/2020 3 - Cough Date R (more content not included)... Normal [facility] CNPNon 01-02-2023 CNPN Telephone (UROLAE) -------- TEOFILO MAXWELL ([id number]) 1955 [facility] Date Time Provider Department 01/02/23 DAVID ZENDEJAS During your visit today, we recorded the following information about you: Chon Lorenz 01/02/2023 9:52 AM Signed Patient called to [facility] follow up for scrotal abscess with you. Your first available is not till 01/14/2023. How soon do you need to see patient? Chon De Santiago 01/02/2023 10:08 AM Signed Spoke with patients , appt for this Saturday for drain removal, and follow up on 01/[address] Zendejas. They are aware of all Chon Briggs Allergies As of Date: 01/02/2023 Noted Allergy Reaction CLINDAMYCIN 12/25/2022 12 - Shortness of Breath DILAUDID (HYDROMORPHONE (BULK)) 06/15/2017 12 - Shortness of Breath LISINOPRIL 01/06/2020 3 - Cough Date Reviewed: 12/27/2022 Reviewed by: Chon Gibbons, BITA - Fully Assessed Reason for Visit: er follow up [Other] Prescriptions as of 03/21/2023 - Non-Adherent Bandage (CURITY ABDOMINAL PAD) 5 X 9 bndg Apply 1 application to affected area twice daily. - Gauze Bandage (KERLIX) 2 1/4 X 3 -yard bndg Apply 1 application to affected area twice daily. - Sodium Chloride 0.9 % soln 1 Units twice daily. Scrotum- cleanse area with N.S. or wound cleanser prior to dressing change. Pack open wounds with N.S. soaked kerlix and cover with ABD pads twice daily . then use mesh pants to hold dressing in place twice daily and as needed for soiling. - acetaminophen (TYLENOL) 325 mg tablet Take 2 tablets by mouth every 6 hours as needed for pain. - apixaban (ELIQUIS) 5 mg tab(s) Take 1 tablet by mouth twice daily. - rOPINIRole (REQUIP) 1 mg tablet Take 1 mg by mouth every evening. - Cyanocobalamin 1,000 mcg TbER Take by mouth once daily. - Lactobac no.41/Bifidobact no.7 (PROBIOTIC-10 ORAL) Take by mouth once daily. - metoprolol succinate ER (TOPROL XL) 25 mg 24 hr tablet Take 1 tablet by mouth once daily. - atorvastatin (LIPITOR) 80 mg tablet Take 1 tablet by mouth once daily. - albuterol HFA (PROVENTIL HFA, VENTOLIN HFA) 90 mcg/actuation inhaler Inhale 2 Puffs as instructed every 4 hours as needed for wheezing/shortness of breath. - psyllium husk, with sugar, (METAMUCIL) 3.4 gram packet Take 1 Packet by mouth every evening. - nicotine (NICODERM) 14 mg/24 hr (Discontinued) Apply 1 Patch as directed once daily. Problem List As Of Date 01/02/2023 Noted Resolved Mild intermittent asthma with exacerbation [J45*06/14/2017 Diverticulitis large intestine [K57.32] 06/14/2017 Rectal pain [K62.89] 06/18/2017 Leukocytosis [D72.829] 06/19/2017 06/25/2017 Hypokalemia [E87.6] 06/19/2017 06/26/2017 Nicotine use disorder [F17.200] 06/20/2017 Episodic atrial flutter (HCC) [I48.92] 06/25/2017 Asthma [J45.909] Thrush of mouth and esophagus (HCC) [B37.81, B3*07/25/2017 FREDI (acute kidney injury) (HCC) [N17.9] 07/30/2017 Dehydration [E86.0] 07/30/2017 Severe protein-calorie malnutrition (HCC) [E43] 07/30/2017 Elevated LFTs [R79.89] 07/30/2017 Hyponatremia [E87.1] 07/30/2017 HSV (herpes simplex virus) infection [B00.9] 08/03/2017 Odynophagia [R13.10] 08/04/2017 08/22/2017 Barium enema abnormal [R93.3] 08/20/2017 08/21/2017 Recurrent biliary colic [K80.50] 08/20/2017 Altered bowel elimination due to intestinal ost*08/20/2017 Hyperglycemia [R73.9] 08/24/2017 Anemia [D64.9] 08/30/2017 STEMI (ST elevation myocardial infarction) (HCC*11/21/2019 Tobacco abuse [Z72.0] 11/23/2019 Pre-diabetes [R73.03] 11/24/2019 PAF (paroxysmal atrial fibrillation) (HCC) [I48*11/24/2019 Pure hypercholesterolemia [E78.00] 11/25/2019 Necrotizing fasciitis (HCC) [M72.6] 12/26/2022 Encounter Status:Closed by CHON LORENZ on 01/02/23 Normal [facility] Basic metabolic 2000 panelon 12-29-2022 Anion gap [Moles/Vol] 10 mmol/L Normal 9-18 [facility] Comment on above: Order Comment: Speci men Type: BLOOD SPECIMEN Ordering Facility: [facility] Address: [address] [place] [id number] Performed By: #### 2 4321-2 #### [facility] CLIA [id number] [address] [place] [address] [place] Calcium [Mass/Vol] 9.0 mg/dL Normal 8.5-10.2 [facility] Comment on above: Order Comment: Speci men Type: BLOOD SPECIMEN Ordering Facility: [facility] Address: [address] [address] Performed By: #### 2 4321-2 #### [facility] CLIA [id number] [address] STATES OF [facility] Chloride [Moles/Vol] 103 mmol/L Normal 97-105 [facility] Comment on above: Order Comment: Speci men Type: BLOOD SPECIMEN Ordering Facility: [facility] Address: [address] [address] Performed By: #### 2 4321-2 #### [facility] CLIA [id number] [address] [place] CO2 [Moles/Vol] 25 mmol/L Normal 22-30 [facility] Comment on above: Order Comment: Speci men Type: BLOOD SPECIMEN Ordering Facility: [facility] Address: [address] [place] [address] Performed By: #### 2 4321-2 #### [facility] CLIA [id number] [address] [place] Creatinine [Mass/Vol] 1.21 mg/dL Normal 0.73-1.22 [facility] Comment on above: Order Comment: Speci men Type: BLOOD SPECIMEN Ordering Facility: [facility] Address: [address] [place] [address] Performed By: #### 2 4321-2 #### [facility] CLIA [id number] [address] ESTIMATED GLOMERULAR FILTRATION RATE 66 mL/min/1.73m??? Normal >=60 [facility] Comment on above: Order Comment: Speci men Type: BLOOD SPECIMEN Ordering Facility: [facility] Address: [address] [place] [address] Result Comment: Asha mated Glomerular Filtration Rate (eGFR) is calculated using the 2020 CKD-EPI creatinine equation. This equation utilizes serum creatinine, sex, and age as parameters. The creatinine assay has traceable calibration to isotope dilution-mass spectrometry. Refer to KDIGO guidelines for clinical interpretation. In patients with unstable renal function, e.g. those with acute kidney injury, the eGFR may not accurately reflect actual GFR. Performed By: #### 2 4321-2 #### [facility] CLIA [id number] 1 [place] [address] [place] Glucose [Mass/Vol] 130 mg/dL High 74-99 [facility] Comment on above: Order Comment: Hilda hayden Type: BLOOD SPECIMEN Ordering Facility: [facility] Address: [address] [address] Result Comment: The [place] Diabetes Association (ADA) provides guidance for cutoff values for fasting glucose and random glucose. The ADA defines fasting as no caloric intake for at least 8 hours. Fasting plasma glucose results between 100 to 125 mg/dL indicate increased risk for diabetes (prediabetes). Fasting plasma glucose results greater than or equal to 126 mg/dL meet the criteria for diagnosis of diabetes. In the absence of unequivocal hyperglycemia, results should be confirmed by repeat testing. In a patient with classic symptoms of hyperglycemia or hyperglycemic crisis, random plasma glucose results greater than or equal to 200 mg/dL meet the criteria for diagnosis of diabetes. Reference: Standards of Medical Care in Diabetes 2016, [place] Diabetes Association. Diabetes Care. 2016.39(Suppl 1). Performed By: #### 2 4321-2 #### [facility] CLIA [id number] [address] [place] [address] [place] Potassium [Moles/Vol] Normal [facility] Comment on above: Order Comment: Hilda hayden Type: BLOOD SPECIMEN Ordering Facility: [facility] Address: [address] [address] Result Comment: Unab le to assay due to interference from hemolysis. Suggest reorder as clinically indicated. Performed By: #### 2 4321-2 #### [facility] CLIA [id number] 1 [place] [address] [place] Sodium [Moles/Vol] 138 mmol/L Normal 136-144 [facility] Comment on above: Order Comment: Hilda hayden Type: BLOOD SPECIMEN Ordering Facility: [facility] Address: [address] [address] Performed By: #### 2 4321-2 #### [facility] CLIA [id number] [address] Urea nitrogen [Mass/Vol] 14 mg/dL Normal 9-24 [facility] Comment on above: Order Comment: Speci men Type: BLOOD SPECIMEN Ordering Facility: [facility] Address: [address] [place] [address] Performed By: #### 2 4321-2 #### [facility] CLIA [id number] [address] CBC panel Auto (Bld)on 12-29 Erythrocyte distribution width (RBC) [Ratio] 13.8 % Normal 11.5-15.0 [facility] Comment on above: Order Comment: Speci men Type: BLOOD SPECIMEN Ordering Facility: [facility] Address: [address] [place] [address] Performed By: #### 5 8410-2 #### [facility] CLIA [id number] [address] Hematocrit (Bld) [Volume fraction] 33.6 % Low 39.0-51.0 [facility] Comment on above: Order Comment: Speci men Type: BLOOD SPECIMEN Ordering Facility: [facility] Address: [address] [place] [address] Performed By: #### 5 8410-2 #### [facility] CLIA [id number] [address] Hemoglobin (Bld) [Mass/Vol] 11.6 g/dL Low 13.0-17.0 [facility] Comment on above: Order Comment: Speci men Type: BLOOD SPECIMEN Ordering Facility: [facility] Address: [address] [place] [address] Performed By: #### 5 8410-2 #### [facility] CLIA [id number] [address] MCH (RBC) [Entitic mass] 30.4 pg Normal 26.0-34.0 [facility] Comment on above: Order Comment: Speci men Type: BLOOD SPECIMEN Ordering Facility: [facility] Address: [address] [place] [address] Performed By: #### 5 8410-2 #### [facility] CLIA [id number] [address] MCHC (RBC) [Mass/Vol] 34.5 g/dL Normal 30.5-36.0 [facility] Comment on above: Order Comment: Speci men Type: BLOOD SPECIMEN Ordering Facility: [facility] Address: [address] [place] [address] Performed By: #### 5 8410-2 #### [facility] CLIA [id number] [address] MCV (RBC) [Entitic vol] 88.0 fL Normal 80.0-100.0 [facility] Comment on above: Order Comment: Speci men Type: BLOOD SPECIMEN Ordering Facility: [facility] Address: [address] [address] Performed By: #### 5 8410-2 #### [facility] CLIA [id number] [address] Nucleated RBC (Bld) [#/Vol] 0.02 10*3/uL High <0.01 [facility] Comment on above: Order Comment: Speci men Type: BLOOD SPECIMEN Ordering Facility: [facility] Address: [address] [address] Performed By: #### 5 8410-2 #### [facility] CLIA [id number] [address] Platelet mean volume (Bld) [Entitic vol] 10.8 fL Normal 9.0-12.7 [facility] Comment on above: Order Comment: Speci men Type: BLOOD SPECIMEN Ordering Facility: [facility] Address: [address] [place] [address] Performed By: #### 5 8410-2 #### [facility] CLIA [id number] [address] Platelets (Bld) [#/Vol] 232 10*3/uL Normal 150-400 [facility] Comment on above: Order Comment: Hilda hayden Type: BLOOD SPECIMEN Ordering Facility: [facility] Address: [address] [place] [address] Performed By: #### 5 8410-2 #### [facility] CLIA [id number] [address] RBC (Bld) [#/Vol] 3.82 10*6/uL Low 4.20-6.00 [facility] Comment on above: Order Comment: Hilda hayden Type: BLOOD SPECIMEN Ordering Facility: [facility] Address: [address] [place] [address] Performed By: #### 5 8410-2 #### [facility] CLIA [id number] [address] WBC (Bld) [#/Vol] 5.83 10*3/uL Normal 3.70-11.00 [facility] Comment on above: Order Comment: Trentoni catracho Type: BLOOD SPECIMEN Ordering Facility: [facility] Address: [address] [place] [address] Performed By: #### 5 8410-2 #### [facility] CLIA [id number] [address] CNDSon 12-29-2022 CNDS HNO ID: [id number] Author: Dustin Hale DO Service: Hospital Medicine Author Type: Physician Type: Discharge Summary Filed: 12/29/2022 8:08 AM Note Text: DISCHARGE SUMMARY PATIENT NAME: Teofilo Maxwell Code Status: Full Code Highest Readmission Risk Score: 20 The 30 day readmissions risk score is derived from an internally validated risk model which evaluates patient level characteristics, utilization history, medication orders and lab results up until the day of discharge. Patients with a score of 40 or above are considered highest risk for readmission. Specific patient level drivers will be listed at the bottom of the summary. Admission Information Admission Information ADMIT DATE: 12/26/2022 DISCHARGE DATE: 12/29/2022 MY DOCTORS AND MEDICAL TEAM: [facility] Doctor: Dustin Hale DO Primary Care Provider: Vero Green APRN.CNP My Medical Team Members: Treatment Team: Attending Provider: Dustin Hale DO Consulting: David Zendejas MD Consulting: Lisa Marroquin MD Primary Service: [facility] Consulting: Dominick Avendaño III, MD MY CONDITION AT DISCHARGE: Stable REASON I WAS IN THE HOSPITAL: Scrotal abscess SUMMARY OF WHAT HAPPENED WHILE I WAS IN THE HOSPITAL: Patient was admitted for Scrotal abscess. Patient presented to [facility] as a transfer from [facility] for concerns for Luiz's gangrene. He was seen in the emergency room was given clindamycin and had a allergic reaction to it. Due to the allergic reaction urology felt that it would be better served as a medicine admission. He was seen by urology and recommendations were made for an excisional debridement of scrotal necrotizing fasciitis and drainage of a scrotal abscess. He was continued on broad-spectrum antibiotics and infectious disease evaluated him. Intraoperatively he was found to have a ruptured scrotal abscess. Underwent an IANDD of his scrotum with Covert placement. Urology recommended discharge home with Mine in place and close urology follow-up. Infectious disease recommended discharge home on Omnicef and Flagyl for 14 days. 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 Allergic reaction - 3. Hyperlipidemia - 4. Parox atrial fib 5. CAD- 6. FREDI - vs CKD 3- OPERATIONS PERFORMED WHILE IN THE HOSPITAL: Yes Excisional debridement scrotal necrotizing fasciitis and drainage scrotal abscess IMPORTANT TEST/PROCEDURES: TEST RESULTS NOT AVAILABLE AT THIS TIME: The plan for following up on pending results below is Urology Discharge Disposition Home with Home Health Care Activity When You Leave the Hospital Activity Resume pre-hospital activity Diet Instructions Diet Resume pre-hospital diet Follow Up Appointments Follow-Up Appointment When: In 1 week Vero Green APRN.CNP [phone] [address] [id number] PCP Requested Referral Follow-Up Appointment When: In 1 week David Zendejas MD [phone] [place] [address] PCP Requested Referral Additional Provider to Provider Information: Patient presented to [facility] as a transfer from [facility] for concerns for Luiz's gangrene. He was seen in the emergency room was given clindamycin and had a allergic reaction to it. Due to the allergic reaction urology felt that it would be better served as a medicine admission. He was seen by urology and recommendations were made for an excisional debridement of scrotal necrotizing fasciitis and drainage of a scrotal abscess. He was continued on broad-spectrum antibiotics and infectious disease evaluated him. Intraoperatively he was found to have a ruptured scrotal abscess. Underwent an IANDD of his scrotum with Mine placement. Urology recommended discharge home with Covert in place and close urology follow-up. Infectious disease recommended discharge home on Omnicef and Flagyl for 14 days. He was able to be discharged home Treatment Team: Attending Provider: Dustin Hale DO Consulting: David Zendejas MD Consulting: Lisa Marroquin MD Primary Service: [facility] Consulting: Dominick Avendaño III, MD Transitions of Care Critical Issues: SPECIALIST FOLLOW-UP: PCP, Urology LABS AND PROCEDURES PENDING AT DISCHARGE: Test Results Not Yet Available from This Hospitalization: Please Review at Your Follow Up Appointment Order Current Status ABSCESS AND WOUND CULTURE WITH GRAM STAIN Preliminary result FOLLOW-UP APPOINTMENTS ALREADY SCHEDULED WITH A [facility] PROVIDER: No future appointments. ALLERGIES Allergen Reactions Clindamycin Shortness of Breath Dilaudid [H[employer]romorp* Shortness of Breath Lisinopril Cough DISCHARGE MEDICATION: Medication List START taking these medications acetaminophen 325 mg tablet Commonly know (more content not included)... Normal [facility] CBC panel Auto (Bld)on 12-28 Erythrocyte distribution width (RBC) [Ratio] 14.1 % Normal 11.5-15.0 [facility] Comment on above: Order Comment: Speci men Type: BLOOD SPECIMEN Ordering Facility: [facility] Address: [address] [place] [id number] Performed By: #### 5 8410-2 #### [facility] CLIA [id number] [address] [id number] [place] Hematocrit (Bld) [Volume fraction] 30.9 % Low 39.0-51.0 [facility] Comment on above: Order Comment: Speci men Type: BLOOD SPECIMEN Ordering Facility: [facility] Address: [address] [address] Performed By: #### 5 8410-2 #### [facility] CLIA [id number] [address] Hemoglobin (Bld) [Mass/Vol] 10.0 g/dL Low 13.0-17.0 [facility] Comment on above: Order Comment: Speci men Type: BLOOD SPECIMEN Ordering Facility: [facility] Address: [address] [place] [address] Performed By: #### 5 8410-2 #### [facility] CLIA [id number] [address] STATES OF [facility] MCH (RBC) [Entitic mass] 29.5 pg Normal 26.0-34.0 [facility] Comment on above: Order Comment: Speci men Type: BLOOD SPECIMEN Ordering Facility: [facility] Address: [address] [address] Performed By: #### 5 8410-2 #### [facility] CLIA [id number] [address] OF [facility] MCHC (RBC) [Mass/Vol] 32.4 g/dL Normal 30.5-36.0 [facility] Comment on above: Order Comment: Speci men Type: BLOOD SPECIMEN Ordering Facility: [facility] Address: [address] [address] Performed By: #### 5 8410-2 #### [facility] CLIA [id number] [address] MCV (RBC) [Entitic vol] 91.2 fL Normal 80.0-100.0 [facility] Comment on above: Order Comment: Speci men Type: BLOOD SPECIMEN Ordering Facility: [facility] Address: [address] [place] [address] Performed By: #### 5 8410-2 #### [facility] CLIA [id number] [address] [place] Nucleated RBC (Bld) [#/Vol] 10*3/uL Normal <0.01 [facility] Comment on above: Order Comment: Speci men Type: BLOOD SPECIMEN Ordering Facility: [facility] Address: [address] [place] [address] Performed By: #### 5 8410-2 #### [facility] CLIA [id number] [address] [place] Platelet mean volume (Bld) [Entitic vol] 9.9 fL Normal 9.0-12.7 [facility] Comment on above: Order Comment: Speci men Type: BLOOD SPECIMEN Ordering Facility: [facility] Address: [address] [place] [address] Performed By: #### 5 8410-2 #### [facility] CLIA [id number] [address] Platelets (Bld) [#/Vol] 174 10*3/uL Normal 150-400 [facility] Comment on above: Order Comment: Speci men Type: BLOOD SPECIMEN Ordering Facility: [facility] Address: [address] [place] [address] Performed By: #### 5 8410-2 #### [facility] CLIA [id number] [address] [place] RBC (Bld) [#/Vol] 3.39 10*6/uL Low 4.20-6.00 [facility] Comment on above: Order Comment: Speci men Type: BLOOD SPECIMEN Ordering Facility: [facility] Address: [address] [place] [address] Performed By: #### 5 8410-2 #### [facility] CLIA [id number] [address] [place] WBC (Bld) [#/Vol] 6.50 10*3/uL Normal 3.70-11.00 [facility] Comment on above: Order Comment: Speci men Type: BLOOD SPECIMEN Ordering Facility: [facility] Address: [place] [address] Performed By: #### 5 8410-2 #### [facility] [id number] [address] [place] [address] [facility] Jered 12-28-2022 CNPN Telephone (HCSIND) -------- TEOFILO MAXWELL ([id number]) 1955 [address] [facility] Date Time Provider Department 12/28/22 KENIA CHANDRA During your visit today, we recorded the following information about you: Kenia Chandra 12/28/2022 4:39 PM Signed Kenia Chandra December 28, 2022 4:38 PM Left voicemail messages for the patient at [phone] and patient's , Reyna Maxwell, at [phone] requesting a return call from either of them. Allergies As of Date: 12/28/2022 Noted Allergy Reaction CLINDAMYCIN 12/25/2022 12 - Shortness of Breath DILAUDID (HYDROMORPHONE (BULK)) 06/15/2017 12 - Shortness of Breath LISINOPRIL 01/06/2020 3 - Cough Date Reviewed: 12/27/2022 Reviewed by: Chon Gibbons, BITA - Fully Assessed Reason for Visit: Home Care [4073] Cmt: CONFIRMATION CALL Prescriptions as of 12/28/2022 - apixaban (ELIQUIS) 5 mg tab(s) Take 5 mg by mouth twice daily. - rOPINIRole (REQUIP) 1 mg tablet Take 1 mg by mouth every evening. - Cyanocobalamin 1,000 mcg TbER Take by mouth once daily. - Lactobac no.41/Bifidobact no.7 (PROBIOTIC-10 ORAL) Take by mouth once daily. - metoprolol succinate ER (TOPROL XL) 25 mg 24 hr tablet Take 1 tablet by mouth once daily. - atorvastatin (LIPITOR) 80 mg tablet Take 1 tablet by mouth once daily. - carbidopa-levodopa (SINEMET 25-100) 25-100 mg per tablet Take 1 tablet by mouth daily at bedtime. - albuterol HFA (PROVENTIL HFA, VENTOLIN HFA) 90 mcg/actuation inhaler Inhale 2 Puffs as instructed every 4 hours as needed for wheezing/shortness of breath. - aspirin, enteric coated (ASPIRIN, ENTERIC COATED) 81 mg EC tablet Take 1 tablet by mouth once daily. - psyllium husk, with sugar, (METAMUCIL) 3.4 gram packet Take 1 Packet by mouth every evening. - nitroglycerin sublingual (NITROQUICK) 0.4 mg SL tablet DISSOLVE 1 TABLET UNDER THE TONGUE EVERY 5 MINUTES NEEDED. - nicotine (NICODERM) 14 mg/24 hr (Discontinued) Apply 1 Patch as directed once daily. - Bifidobacterium Infantis (ALIGN) 4 mg cap Take by mouth. Facility-Administered Medications as of 12/28/2022 - oxyCODONE IR 5-10 mg tab(s) (ROXICODONE) - apixaban 5 mg tab(s) (ELIQUIS) - cefTRIAXone iv piggyback 2 g in dextrose (iso-osmotic) 50 mL (ROCEPHIN) - metroNIDAZOLE 500 mg tab(s) (FLAGYL) - acetaminophen 650 mg tab(s) (TYLENOL) - morphine 4 mg injection - albuterol HFA 90 mcg/actuation 2 Puff (PROVENTIL HFA, VENTOLIN HFA) - NaCl 0.9% iv flush bag - aluminum-magnesium hydroxide-simethicone 200-200-20 mg/5 mL 30 mL - ondansetron 4 mg tab(s) (ZOFRAN) - ondansetron (PF) 4 mg injection (ZOFRAN) - polyethylene glycol 3350 17 g packet - metoprolol tartrate (short acting) 12.5 mg tab(s) (LOPRESSOR) - rOPINIRole 1 mg tab(s) (REQUIP) - atorvastatin 80 mg tab(s) (LIPITOR) Problem List As Of Date 12/28/2022 Noted Resolved Mild intermittent asthma with exacerbation [J45*06/14/2017 Diverticulitis large intestine [K57.32] 06/14/2017 Rectal pain [K62.89] 06/18/2017 Leukocytosis [D72.829] 06/19/2017 06/25/2017 Hypokalemia [E87.6] 06/19/2017 06/26/2017 Nicotine use disorder [F17.200] 06/20/2017 Episodic atrial flutter (HCC) [I48.92] 06/25/2017 Asthma [J45.909] Thrush of mouth and esophagus (HCC) [B37.81, B3*07/25/2017 FREDI (acute kidney injury) (HCC) [N17.9] 07/30/2017 Dehydration [E86.0] 07/30/2017 Severe protein-calorie malnutrition (HCC) [E43] 07/30/2017 Elevated LFTs [R79.89] 07/30/2017 Hyponatremia [E87.1] 07/30/2017 HSV (herpes simplex virus) infection [B00.9] 08/03/2017 Odynophagia [R13.10] 08/04/2017 08/22/2017 Barium enema abnormal [R93.3] 08/20/2017 08/21/2017 Recurrent biliary colic [K80.50] 08/20/2017 Altered bowel elimination due to intestinal ost*08/20/2017 Hyperglycemia [R73.9] 08/24/2017 Anemia [D64.9] 08/30/2017 STEMI (ST elevation myocardial infarction) (HCC*11/21/2019 Tobacco abuse [Z72.0] 11/23/2019 Pre-diabetes [R73.03] 11/24/2019 PAF (paroxysmal atrial fibrillation) (HCC) [I48*11/24/2019 Pure hypercholesterolemia [E78.00] 11/25/2019 Necrotizing fasciitis (HCC) [M72.6] 12/26/2022 Encounter Status:Closed by KENIA CHANDRA on 12/28/22 [facility] CONSULT PROGon 12-28-2022 CONSULT PROG HNO ID: [id number] Author: Dominick Avendaño III, MD Service: Infectious Disease Author Type: Physician Type: Consult Progress Note Filed: 12/28/2022 1:44 PM Note Text: Following patient for luiz's gangrene. Has been on linezolid and meropenem. No growth of bacteria from his cultures- updated the patient. No fevers or chills. Pain controlled. On exam BP 155/88 Pulse 81 Temp (Src) 97.9 (Oral) Resp 18 Ht 6' 1 (1.85m) Wt 212 lb 8 oz (96.4kg) SpO2 94% BMI 28.04 kg/(m2). O2 Therapy: Room Air Lying in bed. No distress. Wounds clean. Drains in place. Mild redness of scrotum. 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 When ready for discharge would change to oral cefdinir 300 BID plus flagyl 500 every 8 hours SIGNATURE: Dominick Avendaño III, MD PATIENT NAME: Teofilo Maxwell DATE: December 28, 2022 TIME: 1:44 PM PAGER #: [phone] [facility] CELL: [phone] Normal [facility] Comprehensive metabolic 2000 panelon 12-28-2022 Albumin [Mass/Vol] 2.9 g/dL Low 3.9-4.9 [facility] Comment on above: Order Comment: Hilda hayden Type: BLOOD SPECIMEN Ordering Facility: [facility] Address: [address] [address] Performed By: #### 2 4323-8 #### [facility] CLIA [id number] [address] OF [facility] ALP [Catalytic activity/Vol] 69 U/L Normal 38-113 [facility] Comment on above: Order Comment: Speci men Type: BLOOD SPECIMEN Ordering Facility: [facility] Address: [address] [address] Performed By: #### 2 4323-8 #### [facility] CLIA [id number] [address] OF [facility] ALT With P-5'-P [Catalytic activity/Vol] 31 U/L Normal 10-54 [facility] Comment on above: Order Comment: Speci men Type: BLOOD SPECIMEN Ordering Facility: [facility] Address: [address] [place] [address] Performed By: #### 2 4323-8 #### [facility] CLIA [id number] [address] STATES OF [facility] Anion gap [Moles/Vol] 8 mmol/L Low 9-18 [facility] Comment on above: Order Comment: Speci men Type: BLOOD SPECIMEN Ordering Facility: [facility] Address: [address] [place] [address] Performed By: #### 2 4323-8 #### [facility] CLIA [id number] [address] OF [facility] AST With P-5'-P [Catalytic activity/Vol] 29 U/L Normal 14-40 [facility] Comment on above: Order Comment: Speci men Type: BLOOD SPECIMEN Ordering Facility: [facility] Address: [address] [place] [address] Performed By: #### 2 4323-8 #### [facility] CLIA [id number] [address] STATES [place] [facility] Bilirubin [Mass/Vol] 0.3 mg/dL Normal 0.2-1.3 [facility] Comment on above: Order Comment: Speci men Type: BLOOD SPECIMEN Ordering Facility: [facility] Address: [address] [place] [address] Performed By: #### 2 4323-8 #### [facility] CLIA [id number] [address] STATES [place] [facility] Calcium [Mass/Vol] 8.3 mg/dL Low 8.5-10.2 [facility] Comment on above: Order Comment: Speci men Type: BLOOD SPECIMEN Ordering Facility: [facility] Address: [address] [place] [address] Performed By: #### 2 4323-8 #### [facility] CLIA [id number] [address] [place] Chloride [Moles/Vol] 106 mmol/L High 97-105 [facility] Comment on above: Order Comment: Speci men Type: BLOOD SPECIMEN Ordering Facility: [facility] Address: [address] [address] Performed By: #### 2 4323-8 #### [facility] CLIA [id number] [address] [place] CO2 [Moles/Vol] 27 mmol/L Normal 22-30 [facility] Comment on above: Order Comment: Speci men Type: BLOOD SPECIMEN Ordering Facility: [facility] Address: [address] [address] Performed By: #### 2 4323-8 #### [facility] CLIA [id number] [address] [place] Creatinine [Mass/Vol] 1.38 mg/dL High 0.73-1.22 [facility] Comment on above: Order Comment: Speci men Type: BLOOD SPECIMEN Ordering Facility: [facility] Address: [address] [address] Performed By: #### 2 4323-8 #### [facility] CLIA [id number] [address] [place] [address] ESTIMATED GLOMERULAR FILTRATION RATE 56 mL/min/1.73m??? Low >=60 [facility] Comment on above: Order Comment: Speci men Type: BLOOD SPECIMEN Ordering Facility: [facility] Address: [address] [place] [address] Result Comment: Asha mated Glomerular Filtration Rate (eGFR) is calculated using the 2020 CKD-EPI creatinine equation. This equation utilizes serum creatinine, sex, and age as parameters. The creatinine assay has traceable calibration to isotope dilution-mass spectrometry. Refer to KDIGO guidelines for clinical interpretation. In patients with unstable renal function, e.g. those with acute kidney injury, the eGFR may not accurately reflect actual GFR. Performed By: #### 2 4323-8 #### [facility] CLIA [id number] [address] [place] Glucose [Mass/Vol] 116 mg/dL High 74-99 [facility] Comment on above: Order Comment: Hilda hayden Type: BLOOD SPECIMEN Ordering Facility: [facility] Address: [address] [place] [address] Result Comment: The [place] Diabetes Association (ADA) provides guidance for cutoff values for fasting glucose and random glucose. The ADA defines fasting as no caloric intake for at least 8 hours. Fasting plasma glucose results between 100 to 125 mg/dL indicate increased risk for diabetes (prediabetes). Fasting plasma glucose results greater than or equal to 126 mg/dL meet the criteria for diagnosis of diabetes. In the absence of unequivocal hyperglycemia, results should be confirmed by repeat testing. In a patient with classic symptoms of hyperglycemia or hyperglycemic crisis, random plasma glucose results greater than or equal to 200 mg/dL meet the criteria for diagnosis of diabetes. Reference: Standards of Medical Care in Diabetes 2016, [place] [employer] Association. Diabetes Care. 2016.39(Suppl 1). Performed By: #### 2 4323-8 #### [facility] CLIA [id number] [address] STATES [place] [facility] Potassium [Moles/Vol] 4.0 mmol/L Normal 3.7-5.1 [facility] Comment on above: Order Comment: Hilda hayden Type: BLOOD SPECIMEN Ordering Facility: [facility] Address: [address] [place] [address] Performed By: #### 2 4323-8 #### [facility] CLIA [id number] [address] [place] [address] [place] Protein [Mass/Vol] 5.8 g/dL Low 6.3-8.0 [facility] Comment on above: Order Comment: Hilda hayden Type: BLOOD SPECIMEN Ordering Facility: [facility] Address: [address] [place] [address] Performed By: #### 2 4323-8 #### [facility] CLIA [id number] [address] [place] Sodium [Moles/Vol] 141 mmol/L Normal 136-144 [facility] Comment on above: Order Comment: Trentoni men Type: BLOOD SPECIMEN Ordering Facility: [facility] Address: [address] [address] Performed By: #### 2 4323-8 #### [facility] CLIA [id number] [address] Urea nitrogen [Mass/Vol] 14 mg/dL Normal 9-24 [facility] Comment on above: Order Comment: Speci men Type: BLOOD SPECIMEN Ordering Facility: [facility] Address: [address] [address] Performed By: #### 2 4323-8 #### [facility] CLIA [id number] [address] NURSING PROGon 12-28-2022 NURSING PROG HNO ID: [id number] Author: Mario Zambrano, RN Service: Nursing Author Type: Registered Nurse Type: Nursing Progress Note Filed: 12/28/2022 4:02 PM Note Text: Kessler removed, post void 0 ml. Urology DrMichelle confirmed balloon and tip were intact. Josh Zambrano BSN, RN Normal [facility] CBC panel Auto (Bld)on 12-27 Erythrocyte distribution width (RBC) [Ratio] 14.0 % Normal 11.5-15.0 [facility] Comment on above: Order Comment: Speci men Type: BLOOD SPECIMEN Ordering Facility: [facility] Address: [address] [address] Performed By: #### 5 8410-2 #### [facility] CLIA [id number] [address] Hematocrit (Bld) [Volume fraction] 30.7 % Low 39.0-51.0 [facility] Comment on above: Order Comment: Speci men Type: BLOOD SPECIMEN Ordering Facility: [facility] Address: [address] [place] [address] Performed By: #### 5 8410-2 #### [facility] CLIA [id number] [address] Hemoglobin (Bld) [Mass/Vol] 10.1 g/dL Low 13.0-17.0 [facility] Comment on above: Order Comment: Speci men Type: BLOOD SPECIMEN Ordering Facility: [facility] Address: [address] [address] Performed By: #### 5 8410-2 #### [facility] CLIA [id number] [address] MCH (RBC) [Entitic mass] 29.6 pg Normal 26.0-34.0 [facility] Comment on above: Order Comment: Speci men Type: BLOOD SPECIMEN Ordering Facility: [facility] Address: [address] [address] Performed By: #### 5 8410-2 #### [facility] CLIA [id number] [address] MCHC (RBC) [Mass/Vol] 32.9 g/dL Normal 30.5-36.0 [facility] Comment on above: Order Comment: Speci men Type: BLOOD SPECIMEN Ordering Facility: [facility] Address: [address] [address] Performed By: #### 5 8410-2 #### [facility] CLIA [id number] [address] MCV (RBC) [Entitic vol] 90.0 fL Normal 80.0-100.0 [facility] Comment on above: Order Comment: Speci men Type: BLOOD SPECIMEN Ordering Facility: [facility] Address: [address] [address] Performed By: #### 5 8410-2 #### [facility] CLIA [id number] [address] Nucleated RBC (Bld) [#/Vol] 10*3/uL Normal <0.01 [facility] Comment on above: Order Comment: Speci men Type: BLOOD SPECIMEN Ordering Facility: [facility] Address: [address] [address] Performed By: #### 5 8410-2 #### [facility] CLIA [id number] [address] [place] Platelet mean volume (Bld) [Entitic vol] 10.0 fL Normal 9.0-12.7 [facility] Comment on above: Order Comment: Speci men Type: BLOOD SPECIMEN Ordering Facility: [facility] Address: [address] [place] [address] Performed By: #### 5 8410-2 #### [facility] CLIA [id number] [address] [place] Platelets (Bld) [#/Vol] 181 10*3/uL Normal 150-400 [facility] Comment on above: Order Comment: Speci men Type: BLOOD SPECIMEN Ordering Facility: [facility] Address: [address] [place] [address] Performed By: #### 5 8410-2 #### [facility] CLIA [id number] [address] RBC (Bld) [#/Vol] 3.41 10*6/uL Low 4.20-6.00 [facility] Comment on above: Order Comment: Speci men Type: BLOOD SPECIMEN Ordering Facility: [facility] Address: [address] [place] [address] Performed By: #### 5 8410-2 #### [facility] CLIA [id number] [address] [place] WBC (Bld) [#/Vol] 8.41 10*3/uL Normal 3.70-11.00 [facility] Comment on above: Order Comment: Speci men Type: BLOOD SPECIMEN Ordering Facility: [facility] Address: [address] [place] [address] Performed By: #### 5 8410-2 #### [facility] CLIA [id number] [address] CONSULTon 12-27-2022 CONSULT HNO ID: [id number] Author: Dominick Avendaño III, MD Service: Infectious Disease Author Type: Physician Type: Consults Filed: 12/27/2022 4:39 PM Note Text: Consultation requested by Dr. Burnett for an opinion regarding necrotizing fasciitis. My final recommendations will be communicated back to the requesting physician by way of shared electronic medical record. 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 Thought it was an ingrown hair. Sat in warm bath to try to get it to drain but did not. Eventually became very tender and swollen. Came to ER and found to have luiz's gangrene. S/p IANDD. Feeling well now. Review of Systems Objective Data reviewed. Pertinent findings include BP 154/76 Pulse 68 Temp (Src) 97.7 (Oral) Resp 18 Ht 6' 1 (1.85m) Wt 212 lb 8 oz (96.4kg) SpO2 94% BMI 28.04 kg/(m2). O2 Therapy: Room Air Physical Exam Lying in bed. No distress. Oropharynx clear and moist Viewed post-op pictures of the scrotum-= moderately red. Drains in place. ALLERGIES Allergen Reactions Clindamycin Shortness of Breath Dilaudid [Hydromorp* Shortness of Breath Lisinopril Cough PAST MEDICAL HISTORY Diagnosis Date Asthma Diverticulitis of intestine with perforation 06/19/2017 H/O heart artery stent HLD (hyperlipidemia) Paroxysmal A-fib (HCC) RLS (restless legs syndrome) STEMI (ST elevation myocardial infarction) ([facility]) PAST SURGICAL HISTORY Procedure Laterality Date PAST SURGICAL HISTORY OF 06/19/2017 laparoscopic sigmoid resection, (Dr. Isaac) PAST SURGICAL HISTORY OF OM3 lesion was stented using a 2.5X23 Xience megha and Proximal LCx was stented using a 3X18 Xience megha on 11/21/2019. Social History Tobacco Use Smoking status: Every Day Packs/day: 0.10 Types: Cigarettes Smokeless tobacco: Never Tobacco comments: quit in [facility] Vaping Use Vaping Use: Never used Substance Use Topics Alcohol use: No Drug use: Not Currently Types: Marijuana SIGNATURE: Dominick Avendaño III, MD PATIENT NAME: Teofilo Maxwell DATE: December 27, 2022 TIME: 1:57 PM PAGER #: [phone] [facility] CELL: [phone] Normal [facility] CONSULT PROGon 12-27-2022 CONSULT PROG HNO ID: [id number] Author: Shira Lopez APRN.CIRCULAR SAWYER HELPER Service: Wound/Ostomy Author Type: Nurse Practitioner Type: Consult Progress Note Filed: 12/27/2022 11:12 AM Note Text: WOUND CARE SERVICE CONSULT ACCOUNTS PAYABLES CLERK NOTE SERVICE DATE: 12/27/2022 SERVICE TIME: 09:14am REASON FOR CONSULT: Consultation requested by Michelle Gonzales MD for an opinion regarding scrotum wound. My final recommendations will be communicated back to the requesting physician by way of shared Medical record or letter to requesting physician via US mail. CHIEF COMPLAINT: wound to scrotum Subjective HISTORY OF PRESENT ILLNESS: Mr. Maxwell is a 67 year old male who is seen today with Farzaneh Chavez, Wound/handkerchief presser, and presented to hospital on 12/26/22 with complaints of scrotal pain. Patient was taken to OR on 12/26/22 for excisional debridement of scrotal necrotizing fasciitis and drainage of scrotal abscess. PERTINENT REVIEW OF SYSTEMS: GENERAL: denies fever or chills PAIN ASSESSMENT: admits to pain to scrotal wound - admits he just got medicated SKIN: admits to wound on scrotum RESPIRATORY: denies SOB or cough GI/: denies nausea or vomiting PAST MEDICAL HISTORY Diagnosis Date Asthma Diverticulitis of intestine with perforation 06/19/2017 H/O heart artery stent HLD (hyperlipidemia) Paroxysmal A-fib (HCC) RLS (restless legs syndrome) STEMI (ST elevation myocardial infarction) ([facility]) PAST SURGICAL HISTORY Procedure Laterality Date PAST SURGICAL HISTORY OF 06/19/2017 laparoscopic sigmoid resection, (Dr. Isaac) PAST SURGICAL HISTORY OF OM3 lesion was stented using a 2.5X23 Xience megha and Proximal LCx was stented using a 3X18 Xience megha on 11/21/2019. Social History Tobacco Use Smoking status: Every Day Packs/day: 0.10 Types: Cigarettes Smokeless tobacco: Never Tobacco comments: quit in [facility] Vaping Use Vaping Use: Never used Substance Use Topics Alcohol use: No Drug use: Not Currently Types: Marijuana FAMILY HISTORY Problem Relation Age of Onset Heart Mother Kidney Disease Mother other (heart attack at age 67) Mother other (valve replacement) Mother other (unknown history) Father MEDICATIONS: Current Facility-Administered Medications Medication Dose Route [...] 4 mg INTRAVENOUS q 3 H PRN ALLERGIES Allergen Reactions Clindamycin Shortness of Breath Dilaudid [Hydromorp* Shortness of Breath Lisinopril Cough Objective PHYSICAL EXAM: BP 154/76 Pulse 68 Temp 36.5 ?C (97.7 ?F) (Oral) Resp 18 Ht 185.4 cm (6' 1) Wt 96.4 kg (212 lb 8 oz) SpO2 94% BMI 28.04 kg/m? General appearance: alert and oriented male, lying in hospital bed Respiratory: no SOB or cough noted Extremities: bilateral heels intact Integumentary: open surgical wounds x 3 to scrotum with two mine drains connecting the wounds. DATA Labs: WBC 8.41 Radiology: CT of ABD/PEL from 12/25/22 : IMPRESSION: 1. Soft tissue emphysema and stranding in the left perineum and posterior scrotal sac in keeping with necrotizing infection/Luiz's gangrene. Presenting wound information: Wound 12/26/22 0850 Scrotum (Active)- surgical incision Assessments 12/27/2022 9:25 AM Wound Image Site Assessment Red Vanessa-Wound Assessment Edema Shape three open surgical wounds with two mine drains that connect the wounds. Wound Length (cm) 5 cm- largest wound on left lateral scrotum. Wound Width (cm) 3 cm Wound Surface Area (cm2) 15 cm2 Wound Depth (cm) 1.5 cm Wound Volume (cm3) 22.5 cm3 Drainage Description Red Drainage Amount Moderate Odor None Treatments Cleansed Dressing Wet to Dry;Abdominal Dressing Dressing Changed Changed Dressing Status Clean;Dry;Intact Active Orders Date Order Priority Status Authorizing Provider 12/27/22 1017 DRESSING CARE (SPECIFY) ([place]) Routine Active Shira Lopez APRN.CIRCULAR SAWYER HELPER - Specify:: Scrotum- cleanse area with N.S. or wound cleanser prior to dressing change. Pack open wounds with N.S. soaked kerlix an (more content not included)... Normal [facility] Comprehensive metabolic 2000 panelon 12-27-2022 Albumin [Mass/Vol] 3.2 g/dL Low 3.9-4.9 [facility] Comment on above: Order Comment: Speci men Type: BLOOD SPECIMEN Ordering Facility: [facility] Address: [address] [place] [address] Performed By: #### 1 9123-9, 13093-1 #### [facility] CLIA [id number] 1 [place] [address] [place] ALP [Catalytic activity/Vol] 70 U/L Normal 38-113 [facility] Comment on above: Order Comment: Speci men Type: BLOOD SPECIMEN Ordering Facility: [facility] Address: [address] [address] Performed By: #### 1 9123-9, 50923-8 #### [facility] CLIA [id number] [address] [facility] [address] ALT With P-5'-P [Catalytic activity/Vol] 31 U/L Normal 10-54 [facility] Comment on above: Order Comment: Speci men Type: BLOOD SPECIMEN Ordering Facility: [facility] Address: [address] [place] [address] Performed By: #### 1 23-9, 56127-5 #### [facility] CLIA [id number] [address] STATES OF [facility] Anion gap [Moles/Vol] 11 mmol/L Normal 9-18 [facility] Comment on above: Order Comment: Speci men Type: BLOOD SPECIMEN Ordering Facility: [facility] Address: [address] [place] [address] Performed By: #### 1 23-9, 97524-8 #### [facility] CLIA [id number] [address] [place] [address] OF [facility] AST With P-5'-P [Catalytic activity/Vol] 32 U/L Normal 14-40 [facility] Comment on above: Order Comment: Speci men Type: BLOOD SPECIMEN Ordering Facility: [facility] Address: [address] [place] [address] Performed By: #### 1 239, 22580-3 #### [facility] CLIA [id number] [address] [place] [address] OF [facility] Bilirubin [Mass/Vol] 0.4 mg/dL Normal 0.2-1.3 [facility] Comment on above: Order Comment: Speci men Type: BLOOD SPECIMEN Ordering Facility: [facility] Address: [address] [place] [address] Performed By: #### 1 23-9, 02047-7 #### [facility] CLIA [id number] [address] Calcium [Mass/Vol] 8.5 mg/dL Normal 8.5-10.2 [facility] Comment on above: Order Comment: Speci men Type: BLOOD SPECIMEN Ordering Facility: [facility] Address: [address] [address] Performed By: #### 1 23-9, 11580-3 #### [facility] CLIA [id number] [address] [place] Chloride [Moles/Vol] 107 mmol/L High 97-105 [facility] Comment on above: Order Comment: Speci men Type: BLOOD SPECIMEN Ordering Facility: [facility] Address: [address] [place] [address] Performed By: #### 1 23-9, 80624-5 #### [facility] CLIA [id number] [address] [place] CO2 [Moles/Vol] 24 mmol/L Normal 22-30 [facility] Comment on above: Order Comment: Speci men Type: BLOOD SPECIMEN Ordering Facility: [facility] Address: [address] [place] [address] Performed By: #### 1 239, 76442-3 #### [facility] CLIA [id number] [address] OF [facility] Creatinine [Mass/Vol] 1.24 mg/dL High 0.73-1.22 [facility] Comment on above: Order Comment: Speci men Type: BLOOD SPECIMEN Ordering Facility: [facility] Address: [address] [place] [address] Performed By: #### 1 23-9, 59768-5 #### [facility] CLIA [id number] [address] ESTIMATED GLOMERULAR FILTRATION RATE 64 mL/min/1.73m??? Normal >=60 [facility] Comment on above: Order Comment: Speci men Type: BLOOD SPECIMEN Ordering Facility: [facility] Address: [address] [place] [address] Result Comment: Asha mated Glomerular Filtration Rate (eGFR) is calculated using the 2020 CKD-EPI creatinine equation. This equation utilizes serum creatinine, sex, and age as parameters. The creatinine assay has traceable calibration to isotope dilution-mass spectrometry. Refer to KDIGO guidelines for clinical interpretation. In patients with unstable renal function, e.g. those with acute kidney injury, the eGFR may not accurately reflect actual GFR. Performed By: #### 1 9123-9, 57483-3 #### [facility] CLIA [id number] 1 [place] [address] [place] Glucose [Mass/Vol] 132 mg/dL High 74-99 [facility] Comment on above: Order Comment: Hilda hayden Type: BLOOD SPECIMEN Ordering Facility: [facility] Address: [address] [place], [place] [id number] Result Comment: The [place] Diabetes Association (ADA) provides guidance for cutoff values for fasting glucose and random glucose. The ADA defines fasting as no caloric intake for at least 8 hours. Fasting plasma glucose results between 100 to 125 mg/dL indicate increased risk for diabetes (prediabetes). Fasting plasma glucose results greater than or equal to 126 mg/dL meet the criteria for diagnosis of diabetes. In the absence of unequivocal hyperglycemia, results should be confirmed by repeat testing. In a patient with classic symptoms of hyperglycemia or hyperglycemic crisis, random plasma glucose results greater than or equal to 200 mg/dL meet the criteria for diagnosis of diabetes. Reference: Standards of Medical Care in Diabetes 2016, [place] [employer] Association. Diabetes Care. 2016.39(Suppl 1). Performed By: #### 1 9123-9, #### [facility] CLIA [id number] 1 [place] [address] [place] Potassium [Moles/Vol] 3.9 mmol/L Normal 3.7-5.1 [facility] Comment on above: Order Comment: Hilda hayden Type: BLOOD SPECIMEN Ordering Facility: [facility] Address: [address] [place], [place] [id number] Performed By: #### 1 9123-9, 06718-5 #### [facility] CLIA [id number] 1 [place] [address] [place] Protein [Mass/Vol] 5.9 g/dL Low 6.3-8.0 [facility] Comment on above: Order Comment: Hilda hayden Type: BLOOD SPECIMEN Ordering Facility: [facility] Address: [address] [place], [place] [phone] Performed By: #### 1 9123-9, 98684-4 #### [facility] CLIA [id number] [address] Sodium [Moles/Vol] 142 mmol/L Normal 136-144 [facility] Comment on above: Order Comment: Speci men Type: BLOOD SPECIMEN Ordering Facility: [facility] Address: [address] [place] [address] Performed By: #### 1 9123-9, 16961-6 #### [facility] CLIA [id number] [address] STATES [facility] Urea nitrogen [Mass/Vol] 12 mg/dL Normal 9-24 [facility] Comment on above: Order Comment: Speci men Type: BLOOD SPECIMEN Ordering Facility: [facility] Address: [address] [place] [address] Performed By: #### 1 9123-9, 70791-6 #### [facility] CLIA [id number] [address] [place] Magnesium SerPl-mCncon 12-27 Magnesium [Mass/Vol] 2.0 mg/dL Normal 1.7-2.3 [facility] Comment on above: Order Comment: Speci men Type: BLOOD SPECIMEN Ordering Facility: [facility] Address: [address] [place] [address] Performed By: #### 1 9123-9, 73095-9 #### [facility] CLIA [id number] [address] [place] [address] [place] ANES POSTPROC EVALon 023 ANES POSTPROC EVAL HNO ID: [id number] Author: Nando Sheikh MD Service: Anesthesiology Author Type: Anesthesiologist Type: Anesthesia Postprocedure Evaluation Filed: 12/26/2022 9:29 AM Note Text: POST ANESTHESIA EVALUATION NOTE : 1955 Procedure Summary Date: 12/26/22 Room / Location: [place] [address] / [place] Anesthesia Start: 0808 Anesthesia Stop: 920 Procedures: DEBRIDEMENT GENITALIA AND PERINEUM FOR NECROTIZING SOFT TISSUE INFECTION (Perineum) DEBRIDEMENT GENITALIA AND PERINEUM FOR NECROTIZING SOFT TISSUE INFECTION Diagnosis: Necrotizing soft tissue infection (Necrotizing soft tissue infection [M79.89]) Surgeons: David Zendejas MD Responsible Provider: Nando Sheikh MD Anesthesia Type: general ASA Status: 3 - Emergent Anesthesia Type: general Airway Type: ETT Last Vitals Vitals Value Taken Time BP 124/93 12/26/2220 Temp 36 ?C (96.8 ?F) 12/26/22919 Pulse 98 12/26/22927 Resp 19 12/26/22927 SpO2 99 % 12/26/22927 Vitals shown include unvalidated device data. Post Anesthesia Patient Status Patient Evaluation: PACU. Anticipated Disposition: inpatient floor planned admission. Neurological Status: aware and responsive. Pulmonary Status: breathing comfortably on room air Airway Control: returned to baseline unsupported. Cardiovascular Status: stable. Pain Management: clinically adequate Postoperative Hydration: acceptable. Intraoperative Events: no significant anesthesia events Post Operative Nausea/Vomiting Status: no significant post operative nausea or vomiting Recommendation: continue current plan of care. Anesthesia Observations No Documentation SIGNATURE: Nando Sheikh MD, MD PATIENT NAME: Teofilo Maxwell DATE: December 26, 2022 TIME: 9:29 AM CSN: [id number] [facility] ANES PRE-OPon 12-26-2022 ANES PRE-OP HNO ID: [id number] Author: Nando Sheikh MD Service: Anesthesiology Author Type: Anesthesiologist Type: Anesthesia Preprocedure Evaluation Filed: 12/26/2022 7:29 AM Note Text: ANESTHESIOLOGY DAY OF SURGERY NOTE : 1955 Procedure Information Date/Time: 12/26/22729 Procedures: DEBRIDEMENT GENITALIA AND PERINEUM FOR NECROTIZING SOFT TISSUE INFECTION (Perineum) DEBRIDEMENT GENITALIA AND PERINEUM FOR NECROTIZING SOFT TISSUE INFECTION Location: [place] [facility] [place] Surgeons: David Zendejas MD Estimated body mass index is 27.84 kg/m? as calculated from the following: Height as of 01/04/21: 185.4 cm (6' 1). Weight as of this encounter: 95.7 kg (211 lb). Most recent hematocrit and potassium results: Hematocrit 32.9 12/26/2022 Potassium 4.2 12/25/2022 Relevant Problems CARDIO (+) Episodic atrial flutter (HCC) (+) PAF (paroxysmal atrial fibrillation) ([facility]) (+) STEMI (ST elevation myocardial infarction) ([facility]) -RENAL (+) FREDI (acute kidney injury) ([facility]) PULMONARY (+) Asthma (+) Mild intermittent asthma with exacerbation I - PHYSICAL EVALUATION AIRWAY Patient intubated: No. Tracheostomy tube not present Mallampati: I. TM distance: >3 FB. Neck ROM: full ROM without neurological symptoms. Mouth opening: adequate. Short neck: no. Thick neck: no DENTAL Dental findings: teeth intact and missing tooth/teeth. II - ANESTHESIA PLAN ASA Score: 3; emergent. Anesthetic Plan: general Airway type: ETT The patient is not a current smoker. NPO Status: adequate Anesthetic plan additional comments: Hx [place] 2019 with 2 stents to Cx Ruptured biceps tendon right arm. Beta Tracy Monitoring Plan Monitoring plan: standard ASA. Post Procedure Analgesic Plan Postoperative analgesic plan: multimodal analgesia. Informed Consent Anesthetic risks, benefits, alternatives, personnel and consent discussed: yes. Patient / Responsible Democrat agrees to proceed: yes Patient / Surrogate agrees to blood products: Yes Vitals Value Taken Time BP 135/78 12/26/22 07 Pulse 72 12/26/22716 Resp 17 12/26/22716 Temp 36.1 ?C (97 ?F) 12/26/22716 SpO2 94 % 12/26/22716 Facility-Administered Medications as of 12/26/2022 Medication Dose Route Frequency - [COMPLETED] rOPINIRole 1 mg tab(s) (REQUIP) 1 mg ORAL ONCE - albuterol HFA 90 mcg/actuation 2 Puff (PROVENTIL HFA, VENTOLIN HFA) 2 Puff INHALATION q 4 H PRN - atorvastatin 80 mg tab(s) (LIPITOR) 80 mg ORAL DAILY - NaCl 0.9% iv flush bag 20 mL INTRAVENOUS PRN - aluminum-magnesium hydroxide-simethicone 200-200-20 mg/5 mL 30 mL 30 mL ORAL q 6 H PRN - ondansetron 4 mg tab(s) (ZOFRAN) 4 mg ORAL q 6 H PRN Or - ondansetron (PF) 4 mg injection (ZOFRAN) 4 mg INTRAVENOUS q 6 H PRN - polyethylene glycol 3350 17 g packet 17 g ORAL DAILY PRN - acetaminophen 650 mg tab(s) (TYLENOL) 650 mg ORAL q 6 H PRN - heparin 5,000 Units injection 5,000 Units SUBCUTANEOUS q 12 H - lactated ringers iv infusion 150 mL/hr INTRAVENOUS CONTINUOUS - [COMPLETED] lactated ringers 1,000 mL iv bolus 1,000 mL INTRAVENOUS ONCE - metoprolol tartrate (short acting) 12.5 mg tab(s) (LOPRESSOR) 12.5 mg ORAL q 12 H - rOPINIRole 1 mg tab(s) (REQUIP) 1 mg ORAL AT BEDTIME - linezolid iv piggyback 600 mg in dextrose 5% 300 mL (ZYVOX) 600 mg INTRAVENOUS q 12 H - meropenem 1 g in NaCl 0.9% 100 mL Vial-Bag (MERREM) 1 g INTRAVENOUS q 8 H - [COMPLETED] NaCl 0.9% 1,000 mL iv bolus 1,000 mL INTRAVENOUS ONCE Outpatient Medications as of 12/26/2022 Medication Sig - atorvastatin (LIPITOR) 80 mg tablet Take 1 tablet by mouth once daily. - Bifidobacterium Infantis (ALIGN) 4 mg cap Take by mouth. - metoprolol succinate ER (TOPROL XL) 25 mg 24 hr tablet Take 1 tablet by mouth once daily. - carbidopa-levodopa (SINEMET 25-100) 25-100 mg per tablet Take 1 tablet by mouth daily at bedtime. - albuterol HFA (PROVENTIL HFA, VENTOLIN HFA) 90 mcg/actuation inhaler Inhale 2 Puffs as instructed every 4 hours as needed for wheezing/shortness of breath. - aspirin, enteric coated (ASPIRIN, ENTERIC COATED) 81 mg EC tablet Take 1 tablet by mouth once daily. - psyllium husk, with sugar, (METAMUCIL) 3.4 gram packet Take 1 Packet by mouth twice daily. - nitroglycerin sublingual (NITROQUICK) 0.4 mg SL tablet DISSOLVE 1 TABLET UNDER THE TONGUE EVERY 5 MINUTES NEEDED. I have interviewed and examined the patient. I have reviewed the medical record and/or the pre-anesthesia evaluation, pertinent labs, and test results. This contains updated information obtained within 48 hours of Surgery/Procedure. SIGNATURE: Rajiv Henry DO PATIENT NAME: Teofilo Maxwell DATE: December 26, 2022 TIME: 7:25 AM CSN: [id number] Normal [facility] Bacteria Wnd Culton 12-27-19 23 Bacteria identified Cx Nom (Wound) CULTURE, WOUND: No growth 6 days GRAM STAIN: Many Gram positive bacilli Moderate Gram positive cocci Moderate Gram negative bacilli Few Polymorphonuclear leukocytes Moderate Red Blood Cells Abnormal [facility] Comment on above: Performed By: #### 6 462-6 ####[facility] [id number] [address] CBC panel Auto (Bld)on 12-26 Erythrocyte distribution width (RBC) [Ratio] 13.8 % Normal 11.5-15.0 [facility] Comment on above: Order Comment: Speci men Type: BLOOD SPECIMENOrdering Facility: [facility] Address: [address] [place] [address] Performed By: #### 5 8410-2 ####[id number] [address] Hematocrit (Bld) [Volume fraction] 32.9 % Low 39.0-51.0 [facility] Comment on above: Order Comment: Speci men Type: BLOOD SPECIMENOrdering Facility: [facility] Address: [address] [place] [address] Performed By: #### 5 8410-2 ####[facility]IA [id number] [address] OF [facility] Hemoglobin (Bld) [Mass/Vol] 11.2 g/dL Low 13.0-17.0 [facility] Comment on above: Order Comment: Speci men Type: BLOOD SPECIMENOrdering Facility: [facility] Address: [address] [place] [address] Performed By: #### 5 8410-2 ####[facility]ORY[facility]IA [id number] [address] STATES OF [facility] MCH (RBC) [Entitic mass] 30.4 pg Normal 26.0-34.0 [facility] Comment on above: Order Comment: Speci men Type: BLOOD SPECIMENOrdering Facility: [facility] Address: [address] [place] [address] Performed By: #### 5 8410-2 ####[facility]ORY[facility]IA [id number] [address] MCHC (RBC) [Mass/Vol] 34.0 g/dL Normal 30.5-36.0 [facility] Comment on above: Order Comment: Speci men Type: BLOOD SPECIMENOrdering Facility: [facility] Address: [address] [place] [address] Performed By: #### 5 8410-2 ####[facility]ORY[facility]IA [id number] [address] MCV (RBC) [Entitic vol] 89.2 fL Normal 80.0-100.0 [facility] Comment on above: Order Comment: Speci men Type: BLOOD SPECIMENOrdering Facility: [facility] Address: [address] [place] [address] Performed By: #### 5 8410-2 ####[facility]ORY[facility]IA [id number] [address] Nucleated RBC (Bld) [#/Vol] 10*3/uL Normal <0.01 [facility] Comment on above: Order Comment: Speci men Type: BLOOD SPECIMENOrdering Facility: [facility] Address: [address] [place] [address] Performed By: #### 5 8410-2 ####[facility]ORY[facility]IA [id number] [address] Platelet mean volume (Bld) [Entitic vol] 10.6 fL Normal 9.0-12.7 [facility] Comment on above: Order Comment: Speci men Type: BLOOD SPECIMENOrdering Facility: [facility] Address: [address] [place] [address] Performed By: #### 5 8410-2 ####[facility]ORYCLIA [id number] [address] [place] Platelets (Bld) [#/Vol] 167 10*3/uL Normal 150-400 [facility] Comment on above: Order Comment: Speci men Type: BLOOD SPECIMENOrdering Facility: [facility] [facility] Address: [address] [place] [address] Performed By: #### 5 8410-2 ####[facility] LABORATORYCLIA [id number] [place] [address] [place] RBC (Bld) [#/Vol] 3.69 10*6/uL Low 4.20-6.00 [facility] Comment on above: Order Comment: Speci men Type: BLOOD SPECIMENOrdering Facility: [facility] Address: [address] [place] [address] Performed By: #### 5 8410-2 ####[facility] LABORATORYCLIA [id number] [place] [address] [place] WBC (Bld) [#/Vol] 5.00 10*3/uL Normal 3.70-11.00 [facility] Comment on above: Order Comment: Speci men Type: BLOOD SPECIMENOrdering Facility: [facility] Address: [address] [place] [address] Performed By: #### 5 8410-2 ####[facility] LABORATORYCLIA [id number] [place] [id number] [facility] [place] CONSULTon 12-26-2022 CONSULT HNO ID: [id number] Author: Lisa Marroquin MD Service: General Surgery Author Type: Physician Type: Consults Filed: 12/26/2022 10:03 PM Note Text: CONSULT: Emergency General Surgery Service SERVICE DATE: 12/26/2022 SERVICE TIME: 6:38 AM REASON FOR CONSULT: Necrotizing fascitis REQUESTING PHYSICIAN: Dr. Hale Subjective 67 year old male with a history of asthma, diverticulitis, HLD, Afib on is, [facility] presenting for a scrotal wound concerning for necrotizing fascitis. Patient reports he noticed what looked like an in grown hair on Saturday. He states he had something similar in the past that was alleviated with a warm bath. He this time the area continued to increase in size and was progressively more tender. Denies fevers, chills, nausea, vomiting, discharge from perineum or scrotum. FUNCTIONAL STATUS: Independent PAST MEDICAL HISTORY Diagnosis Date Asthma Diverticulitis of intestine with perforation 06/19/2017 H/O heart artery stent HLD (hyperlipidemia) Paroxysmal A-fib (HCC) RLS (restless legs syndrome) STEMI (ST elevation myocardial infarction) (HCC) PAST SURGICAL HISTORY Procedure Laterality Date PAST SURGICAL HISTORY OF 06/19/2017 laparoscopic sigmoid resection, (Dr. Isaac) PAST SURGICAL HISTORY OF OM3 lesion was stented using a 2.5X23 Xience megah and Proximal LCx was stented using a 3X18 Xience megha on 11/21/2019. FAMILY HISTORY Problem Relation Age of Onset Heart Mother Kidney Disease Mother other (heart attack at age 67) Mother other (valve replacement) Mother other (unknown history) Father Social History Tobacco Use Smoking status: Every Day Packs/day: 0.10 Types: Cigarettes Smokeless tobacco: Never Tobacco comments: quit in [facility] Vaping Use Vaping Use: Never used Substance Use Topics Alcohol use: No Drug use: Not Currently Types: Marijuana (Not in a hospital admission) Current Facility-Administered Medications Medication Dose Route Frequency [...] ringers iv infusion 150 mL/hr INTRAVENOUS CONTINUOUS lactated ringers 1,000 mL iv bolus 1,000 mL INTRAVENOUS ONCE metoprolol tartrate (short acting) 12.5 mg tab(s) (LOPRESSOR) 12.5 mg ORAL q 12 H rOPINIRole 1 mg tab(s) (REQUIP) 1 mg ORAL AT BEDTIME linezolid iv piggyback 600 mg in dextrose 5% 300 mL (ZYVOX) 600 mg INTRAVENOUS q 12 H meropenem 1 g in NaCl 0.9% 100 mL Vial-Bag (MERREM) 1 g INTRAVENOUS q 8 H Allergies As of Date: 12/26/2022 Allergen Noted Reaction CLINDAMYCIN 12/25/2022 Shortness of Breath DILAUDID [HYDROMORPHONE (BULK)] 06/15/2017 Shortness of Breath LISINOPRIL 01/06/2020 Cough Fully Assessed 12/26/2022 COMPLETE REVIEW OF SYSTEMS: CONSTITUTIONAL: No fevers, chills HEENT: Denies frequent or severe heaches, nasal congestion/sinus symptoms, problematic allergy problems. EYES: No vision changes CARDIOVASCULAR: No chest pain. PULM: No Shortness of Breath. GI: No Nausea, Vomiting, or abdominal pain : No pain with urination or gross hematuria. NEURO: No weakness or numbness of concern. MUSC-SKEL: No new joint pain, swelling, or erythema. Objective PHYSICAL EXAM: Exam: GENERAL: No distress, Alert NEURO: AANDOx3, CN II-XII grossly intact HEENT: normocephalic, atraumatic LUNGS: Unlabored breathing CARDIAC: Regular rate and rhythm as above ABDOMEN: Soft, non-tender, non-distended, increased scrotal swelling and fluctuance, eschar lesion on scrotum EXTREMITIES: CAZARES, No deformities, No edema SKIN: Skin color, texture, turgor normal, No rashes or lesions BP 136/67 Pulse 84 Temp (Src) 98 (Oral) Resp 15 Wt 211 lb (95.7kg) SpO2 91% O2 Therapy: Room Air DATA: Labs: Recent Labs 12/26/22 0524 12/25/22 2200 12/25/22 2123 NA -- -- 139 K -- -- 4.2 CHLOR -- -- 102 CO2 -- -- 24 BUN -- -- 16 CREAT -- -- 1.41* GLUC -- -- 135* ANION -- -- 13 CA -- -- 9.4 ALB -- -- 3.9 AST -- -- 23 ALT -- -- 26 ALKPHOS -- -- 85 TBILI -- -- 0.8 WBC 5.00 -- 7.37 HB 11.2* -- 13.4 HCT 32.9* -- 39.9 PLT 167 -- 182 LACT 1.2 1.2 2.3* Diagnostic tests reviewed for today's visit: Most recent labs and imaging results. No orders to display Problem List Necrotizing fasciitis (HCC) POA: Yes Assessment/Plan Assessment and Plan: 67 year old male with a history of asthma, diverticulitis, HLD, Afib on Eliquis, RLS (more content not included)... Normal [facility] CONSULT HNO ID: [id number] Author: Michelle Gonzales MD Service: Urology Author Type: Resident Type: Consults Filed: 12/26/2022 2:55 AM Note Text: -------- Attestation signed by David Zendejas MD at 12/26/2022 7:20 AM Attending Note I evaluated the patient and personally participated in the kern components. I agree with the resident's findings and plan as documented and have discussed the case and management of the patient's care with the resident. 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 Necrotizing fasciitis (HCC) - ICD9: 728.86, ICD10: M72.6 PLAN: Plan for debridement and possible drain placement in OR. We discussed the planned procedure. Risks, benefits, and alternatives of the procedure were discussed. Patient acknowledges understanding and consents to proceed. David Zendejas MD Date: 12/26/22 Time: 7:19 AM -------- Urology Inpatient Consultation 12/26/2022 HISTORY OF PRESENT ILLNESS: The patient is a 67 year old male presenting as a transfer from [place] ED for concern for Luiz's gangrene. Upon evaluation, pt does not appear acutely ill. He is currently afebrile and hemodynamically stable (no tachycardia, no hypotension), WBC at [place] was 7. CT did show emphysema and stranding in the left perineum and posterior scrotum. On exam there is a small area of eschar on the posterior scrotum with surrounding induration, erythema, crepitus - which feels focal around the area of darkening. No history of diabetes. PAST MEDICAL HISTORY: PAST MEDICAL HISTORY Diagnosis Date Asthma Diverticulitis of intestine with perforation 06/19/2017 H/O heart artery stent HLD (hyperlipidemia) Paroxysmal A-fib (HCC) RLS (restless legs syndrome) STEMI (ST elevation myocardial infarction) ([facility]) PAST SURGICAL HISTORY: PAST SURGICAL HISTORY Procedure Laterality Date PAST SURGICAL HISTORY OF 06/19/2017 laparoscopic sigmoid resection, (Dr. Isaac) PAST SURGICAL HISTORY OF OM3 lesion was stented using a 2.5X23 Xience megha and Proximal LCx was stented using a 3X18 Xience megha on 11/21/2019. ALLERGIES: ALLERGIES Allergen Reactions Clindamycin Shortness of Breath Dilaudid [Hydromorp* Shortness of Breath Lisinopril Cough HOME MEDICATIONS: (Not in a hospital admission) FAMILY HISTORY: Family History Problem Relation Age of Onset Heart Mother Kidney Disease Mother other (heart attack at age 67) Mother other (valve replacement) Mother other (unknown history) Father Social History: Tobacco Use: 0.1 packs/day Types: Cigarettes (quit in [facility] ) Alcohol Use: No ROS: Constitutional: negative for chills and fevers HEENT: no blurry vision or eye redness Respiratory: negative for hemoptysis and shortness of breath Cardiovascular: negative for dyspnea and syncope Gastrointestinal: negative for jaundice, nausea and vomiting Genitourinary:negative for dysuria and hematuria Hematologic/lymphatic: negative for bleeding Integumentary: no new bruises or lesions Musculoskeletal:negative for muscle weakness Neurological: negative for coordination problems and seizures All other systems negative PHYSICAL EXAM: VITALS: 12/26/22 0127 BP: 137/86 Pulse: (!) 92 Resp: 19 Temp: 36.7 ?C (98 ?F) TempSrc: Oral SpO2: (!) 94% Weight: 95.7 kg (211 lb) General: Alert, in no acute distress Head: Normocephalic, atraumatic Neck: supple, trachea is midline, no obvious masses Respiratory: normal effort, no audible wheezes Cardiovascular: regular pulse and no cyanosis Musculoskeletal: moving all extremities, normal tone Skin: warm and dry Psych: normal mood and affect, oriented Abdomen: soft, non distended, non tender, no organomegaly, no hernias : small area of eschar on the posterior scrotum with surrounding induration, erythema, crepitus - which feels focal around the area of darkening DATA: LABS: BMP: . Glucose (mg/dL) Date Value 12/25/2022 135 11/25/2019 141 Potassium (mmol/L) Date Value 12/25/2022 4.2 11/25/2019 4.1 Sodium (mmol/L) Date Value 12/25/2022 139 11/25/2019 138 Chloride (mmol/L) Date Value 12/25/2022 102 11/25/2019 102 CO2 (mmol/L) Date Value 12/25/2022 24 11/25/2019 20 Creatinine (mg/dL) Date Value 12/25/2022 1.41 11/25/2019 1.24 BUN (mg/dL) Date Value 12/25/2022 16 11/25/2019 19 Anion Gap (mmol/L) Date Value 12/25/2022 13 11/25/2019 16 Calcium (mg/dL) Date Value 11/25/2019 9.2 Calcium, Total (mg/dL) Date Value 12/25/2022 9.4 CBC: Hemoglobin (g/dL) Date Value 12/25/2022 13.4 11/25/2019 14.9 Hematocrit (%) Date Value 12/25/2022 39.9 11/25/2019 44.3 WBC (k/uL) Date Value 12/25/2022 7.37 11/25/2019 8.15 Platelet Count (k/uL) Date (more content not included)... Normal [facility] CONSULT PROGon 12-26-2022 CONSULT PROG HNO ID: [id number] Author: Ivy Dallas RPh Service: Pharmacy Author Type: Pharmacist Type: Consult Progress Note Filed: 12/26/2022 6:32 AM Note Text: PHARMACY VANCOMYCIN DOSING NOTE Patient Name: Teofilo Maxwell Admission Date: 12/26/2022 Date of Consult: 12/26/2022 Time of Consult: 6:31 AM Indication: Skin/Soft tissue infection Goal Range: 10-20 mcg/mL RECOMMENDATIONS/PLAN: Pharmacy consulted for vancomycin dosing for Teofilo Maxwell, a 67 year old male. 1. Vancomycin therapy has been discontinued. Vancomycin level(s) have been discontinued: Yes. Pharmacy vancomycin dosing service will sign off. Thank you for allowing us to participate in this patient's care. Please contact pharmacy if there are questions. Vancomycin Levels: No results found for: ANNALEE Dallas, Pharm.D., [facility] CONSULT PROG HNO ID: [id number] Author: Sherley Edward RPh Service: Pharmacy Author Type: Pharmacist Type: Consult Progress Note Filed: 12/26/2022 4:55 AM Note Text: PHARMACY VANCOMYCIN DOSING NOTE Patient Name: Teofilo Maxwell Admission Date: 12/26/2022 Date of Consult: 12/26/2022 Time of Consult: 4:52 AM Indication: Skin/Soft tissue infection Goal Range: 10-20 mcg/mL RECOMMENDATIONS/PLAN: Pharmacy consulted for vancomycin dosing for Teofilo Maxwell, a 67 year old male. 1. Patient is currently ordered Vancomycin 1.5 g IV q12h. Today is day One of therapy. First dose of therapy given in [facility] on 12-25-2022 @ 2316. 2. No vancomycin level has been drawn for this dosing regimen. 3. The present dose of vancomycin is the recommended dosage for this patient at this time. Continue therapy as prescribed. 4. The next vancomycin level has been ordered for 12-27-2022 @ 2200 prior 5th dose (Completed) We will follow patient renal function, vancomycin levels and doses with you during the course of therapy. Additional recommendations will appear in follow up notes. If you have any questions[place] [phone]. Age: [age] year old Allergies: ALLERGIES Allergen Reactions Clindamycin Shortness of Breath Dilaudid [Hydromorp* Shortness of Breath Lisinopril Cough Last 3 Encounter Wt Readings: Date: Wt: 12/26/2022 95.7 kg (211 lb) 12/25/2022 95.7 kg (211 lb) 01/04/2021 96.6 kg (213 lb) Last 1 Encounter Ht Readings: Date: Ht: 01/04/2021 185.4 cm (6' 1) CrCl: 57 mL/min Temp (24hrs), Av.7 ?C (98 ?F), Min:36.7 ?C (98 ?F), Max:36.7 ?C (98 ?F) - Current Temp: 36.7 ?C (98 ?F) Labs BUN (mg/dL) Date Value 12/25/2022 16 11/25/2019 19 11/24/2019 15 Creatinine (mg/dL) Date Value 12/25/2022 1.41 (H) 11/25/2019 1.24 (H) 11/24/2019 1.24 (H) WBC (k/uL) Date Value 12/25/2022 7.37 11/25/2019 8.15 11/24/2019 6.99 Vancomycin Levels: No results found for: ANNALEE Edward, [facility] Normal [facility] CT ABD/PEL W IVCONon 06-28-[address] ABD/PEL W IVCON * * *Final Report* * * DATE OF EXAM: Dec 25 2022 10:19PM [facility] 0530 - CT ABD/PEL W IVCON / PROCEDURE REASON: Abdominal abscess/infection suspected * * * * Physician Interpretation * * * * EXAMINATION: CT ABD/PEL W IVCON INDICATION: Abdominal abscess/infection suspected Abdominal abscess/infection suspected, Luiz gangrene, abscess and scrotum COMPARISON: 07/02/2017 TECHNIQUE: CT of the abdomen and pelvis was performed using standard technique, scanning from just above the dome of the diaphragm to the pubic symphysis. Contrast: IV: 100 ml of Omnipaque 350 : ml of CT Radiation dose: Integrated Dose-length product (DLP) for this visit = 394.72 mGy*cm. CT Dose Reduction Employed: Automated exposure control(AEC) and iterative recon FINDINGS: Lower Thorax: No consolidations Liver: No masses. Gallbladder/Biliary: Cholecystectomy. No biliary ductal dilatation. Spleen: Unremarkable. Pancreas: Unremarkable. Adrenals: No nodules Kidneys: Too small to characterize renal hypodensities. No hydronephrosis. Vasculature: Atherosclerotic disease. No abdominal aortic aneurysm. GI Tract: Sigmoidectomy and small bowel resections. Diverticulosis. No wall thickening or evidence of obstruction. Pelvis: No pelvic masses. No bladder wall thickening. Mesentery/Peritoneum/Ret roperitoneum: No free air or fluid Lymph Nodes: No lymphadenopathy. Bones and soft tissues: Degenerative changes. Small fat-containing left inguinal and umbilical hernias. Soft tissue emphysema and stranding of the perineum and posterior left scrotal sac. No discrete collection. Carton Filling Machine Operator (topogram) images: No additional findings. IMPRESSION: 1. Soft tissue emphysema and stranding in the left perineum and posterior scrotal sac in keeping with necrotizing infection/Luiz's gangrene. [employer]: [facility] Transcribe Date/Time: Dec 25 2022 10:26P Dictated by : GRISEL HENRY MD This examination was interpreted and the report reviewed and electronically signed by: GRISEL HENRY MD on Dec 25 2022 10:43PM EST [id number] Normal [facility] ECG COMPLETEon 12-26-2022 ECG COMPLETE Ventricular Rate : 6 4 BPM Atrial Rate : 64 BPM P-R Interval : 162 ms QRS Duration : 90 ms Q-T Interval : 416 ms QTC Calculation(Bazett) : 429 ms Calculated P [place] : 90 degrees Calculated R [place] : -3 degrees Calculated T [place] : 36 degrees NORMAL SINUS RHYTHM INFERIOR INFARCT , AGE UNDETERMINED ABNORMAL ECG NO PREVIOUS ECGS AVAILABLE Confirmed by MD COTA YASSAR ([id number]) on 12/27/2022 3:17:22 PM NAME : TEOFILO MAXWELL PID : [id number] : 1955 Gender : Male Race : ORD : [id number] Procedure Date : Dec 26 2022 07:30:51 Edit Date : Dec 27 2022 15:17:26 Diagnosis: NORMAL SINUS RHYTHM INFERIOR INFARCT , AGE UNDETERMINED ABNORMAL ECG NO PREVIOUS ECGS AVAILABLE Confirmed by MD COTA YASSAR ([id number]) on 12/27/2022 3:17:22 PM Test Reason : Pre-OP Location : 10 : [facility] POOL Overread By : MD COTA YASSAR Edited By : MD COTA YASSAR Referred By : , Acquired by : DOC INFANTE [facility] ED NOTEon 12-26-2022 ED NOTE HNO ID: [id number] Author: Alis Sanchez RN Service: ? Author Type: Registered Nurse Type: ED Notes Filed: 12/26/2022 7:03 AM Note Text: Pt to OR @ 0703 [facility] ED NOTE HNO ID: [id number] Author: Hoang Llanos RN Service: Emergency Medicine Author Type: Registered Nurse Type: ED Notes Filed: 12/26/2022 6:47 AM Note Text: Report given to Sx RN [facility] ED NOTE HNO ID: [id number] Author: Hoang Llanos RN Service: Emergency Medicine Author Type: Registered Nurse Type: ED Notes Filed: 12/26/2022 1:30 AM Note Text: Pt placed on cardiac care nurse. NSR noted, no ectopy. Alarms reviewed. Pt placed on continuous pulse ox and disposable BP monitoring set to q60 intervals Ambu bag with bag mask at head of bed. Wall suction equipment at the ready. Pt verified using date of and name as compared to pt wrist band. IV flushes and draws [facility] ED NOTE HNO ID: [id number] Author: Alis Sanchez RN Service: ? Author Type: Registered Nurse Type: ED Notes Filed: 12/26/2022 1:25 AM Note Text: Bed: 14-ED Expected date: Expected time: Means of arrival: Comments: [facility] tx; Septic scrotum [facility] ED NOTE HNO ID: [id number] Author: Lm Sewell RN Service: Nursing Author Type: Registered Nurse Type: ED Notes Filed: 12/26/2022 12:50 AM Note Text: Pt care and report given to [facility]. [facility] ED NOTE HNO ID: [id number] Author: Farzad Diaz RN Service: ? Author Type: Registered Nurse Type: ED Notes Filed: 12/25/2022 11:02 PM Note Text: Pt reports relief of shortness of breath after interventions. Pt taken off of oxygen 2L NC. SpO2 93% on RA. [facility] ED NOTE HNO ID: [id number] Author: Farzad Diaz RN Service: ? Author Type: Registered Nurse Type: ED Notes Filed: 12/25/2022 10:47 PM Note Text: Pt became short of breath after starting clindamycin. SpO2 88% and pt experienced audible wheezes. Pt has hx of asthma. Clindamycin infusion stopped, 2L NC oxygen administered, and LIP notified of reaction. New orders received. [facility] ED PROV NOTEon 12-26-2022 ED PROV NOTE HNO ID: [id number] Author: Yoseph Horn MD Service: Emergency Medicine Author Type: Resident Type: ED Provider Notes Filed: 12/26/2022 3:55 AM Note Text: -------- Attestation signed by Gianni Waterman MD at 01/28/2023 2:19 AM Attending Note I personally saw the patient and performed a substantive portion of the visit including all aspects of the medical decision making. I supervised and was present for kern portions of any procedures performed by the resident. I agree with the resident's findings and plan with the following revisions and/or additions: Signature: Gianni Waterman MD -------- ED Provider Note Patient Name: Teofilo Maxwell : 1955 SERVICE DATE: 12/26/22 History Patient presents with: Penis/Scrotum Problem: Pt transferred from [facility] for urology cx and admission for scrotal infection. 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 Patient states last Saturday he had not ingrown hair in his perineum which he had in the past but this time it appeared to get infected and has rapidly gotten worse. 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 Patient was treated with vancomycin, Zosyn, clindamycin. Patient did appear to have an allergic reaction with clindamycin as he became rapidly short of breath with significant wheezing which is likely complicated by the fact that he has a history of asthma. Patient was treated with DuoNebs, steroids, antihistamines and epi and felt significantly better afterwards. Dr. Zendejas from urology was consulted at [facility] and wanted the patient to be transferred to our ED to determine if the patient needs to go to the OR now or later. Patient was directly admitted to [facility] under Dr. Burnett however urology is still to evaluate in our emergency department. Patient states his pain is currently well controlled. He denies any fevers, nausea, vomiting, difficulty bowel movements, difficulty urinating. PAST MEDICAL HISTORY Diagnosis Date Asthma Diverticulitis of intestine with perforation 06/19/2017 H/O heart artery stent HLD (hyperlipidemia) Paroxysmal A-fib (HCC) RLS (restless legs syndrome) STEMI (ST elevation myocardial infarction) ([facility]) PAST SURGICAL HISTORY Procedure Laterality Date PAST [...] Smokeless tobacco: Never Tobacco comments: quit in [facility] Vaping Use Vaping Use: Never used Substance and Sexual Activity Alcohol use: No Drug use: Not Currently Types: Marijuana Sexual activity: Yes Partners: Female ALLERGIES Allergen Reactions Clindamycin Shortness of Breath Dilaudid [Hydromorp* Shortness of Breath Lisinopril Cough Review of Systems Constitutional: Negative for chills, fatigue and fever. HENT: Negative for facial swelling, rhinorrhea, sore throat and trouble swallowing. Eyes: Negative for photophobia and visual disturbance. Respiratory: Negative for cough, chest tightness, shortness of breath and wheezing. Cardiovascular: Negative for chest pain, palpitations and leg swelling. Gastrointestinal: Negative for abdominal distention, abdominal pain, blood in stool, constipation, diarrhea, nausea and vomiting. Genitourinary: Positive for scrotal swelling. Negative for difficulty urinating, dysuria, hematuria, penile pain and penile swelling. Musculoskeletal: Negative for back pain and myalgias. Skin: Positive for wound. Negative for color change and rash. Neurological: Negative for dizziness, weakness, light-headedness, numbness and headaches. Psychiatric/Behavioral: Negative for confusion and hallucinations. All other systems reviewed and are negative. Physical Exam Vitals [12/26/22 0127] BP Pulse Temp Temp src Resp SpO2 Weight Height 137/86 (!) 92 36.7 ?C (98 ?F) Oral 19 (!) 94 % 95.7 kg (211 lb) -- Physical Exam Vitals and nursing note reviewed. Constitutional: General: He is not in acute distress. Appearance: Normal appearance. He is not ill-appearing. HENT: Head: Normocephalic and (more content not included)... Normal [facility] Gas and Carbon monoxide pane l (BldV)on 12-26-2022 BASE DEFICIT, VENOUS -1 mmol/L Normal -2-0 [facility] Comment on above: Order Comment: Speci men Type: VENOUS BLOOD SPECIMEN [facility]ing Facility: [facility] Address: [place] [address] Performed By: #### 2 4344-4 #### [facility] CLIA [id number] [facility]ER[facility] [address] [address] Carboxyhemoglobin (BldV) [Mass fraction] 1.7 % Normal 0.0-2.0 [facility] Comment on above: Order Comment: Speci men Type: VENOUS BLOOD SPECIMEN Ordering Facility: [facility] Address: [address] [address] Result Comment: Carb oxyhemoglobin Reference Range for Smokers: 2.0-8.0% Performed By: #### 2 4344-4 #### [facility] CLIA [id number] [facility] THERAP[facility] [address] [address] CO2 (BldV) [Partial pressure] 42 mm[Hg] Normal 42-55 [facility] Comment on above: Order Comment: Speci men Type: VENOUS BLOOD SPECIMEN Ordering Facility: [facility] Address: [address] [address] Performed By: #### 2 4344-4 #### [facility] CLIA [id number] [facility]PIRATORY THERAPY [address] [address] CO2 adjusted to patient's actual temperature (BldV) [Partial pressure] Normal [facility] Comment on above: Order Comment: Speci men Type: VENOUS BLOOD SPECIMEN Ordering Facility: [facility] Address: [address] [address] Performed By: #### 2 4344-4 #### [facility] CLIA [id number] [facility] RESPIRATORY THERAPY [address] [address] HCO3 (Bld) [Moles/Vol] 24 mmol/L Normal 24-28 [facility] Comment on above: Order Comment: Speci men Type: VENOUS BLOOD SPECIMEN [facility] [facility] Address: [address] [address] Performed By: #### 2 4344-4 #### [facility] CLIA [id number] [facility] RESPIRATORY THERAPY [address] [address] Hemoglobin (Bld) [Mass/Vol] 11.9 g/dL Low 13.0-17.0 [facility] Comment on above: Order Comment: Speci men Type: VENOUS BLOOD SPECIMEN Ordering Facility: [facility] Address: [address] [address] Performed By: #### 2 4344-4 #### [facility] CLIA [id number] [facility] RESPIRATORY THERAPY [address] [address] Lactate [Moles/Vol] 1.2 mmol/L Normal 0.5-2.2 [facility] Comment on above: Order Comment: Speci men Type: VENOUS BLOOD SPECIMEN Ordering Facility: [facility] Address: [address] [address] Performed By: #### 2 4344-4 #### [facility] CLIA [id number] [facility] RESPIRATORY THERAPY [address] [address] O2 THERAPY RA=Room Air Normal [facility] Comment on above: Order Comment: Speci men Type: VENOUS BLOOD SPECIMEN Ordering Facility: [facility] Address: [address] [address] Performed By: #### 2 4344-4 #### [facility] CLIA [id number] [facility] RESPIRATORY THERAPY [address] [address] Oxygen (BldV) [Partial pressure] mm[Hg] Low 35-45 [facility] Comment on above: Order Comment: Speci men Type: VENOUS BLOOD SPECIMEN Ordering Facility: [facility] Address: [address] [address] Performed By: #### 2 4344-4 #### [facility] CLIA [id number] [facility] RESPIRATORY THERAPY [address] [address] Oxygen adjusted to patient's actual temperature (BldV) [Partial pressure] Normal [facility] Comment on above: Order Comment: Speci men Type: VENOUS BLOOD SPECIMEN Ordering Facility: [facility] Address: [address] [address] Performed By: #### 2 4344-4 #### [facility] CLIA [id number] [facility] RESPIRATORY THERAPY [address] [address] Oxyhemoglobin (BldV) [Mass fraction] 47 % Low 60-85 [facility] Comment on above: Order Comment: Speci men Type: VENOUS BLOOD SPECIMEN Ordering Facility: [facility] Address: [address] [address] Performed By: #### 2 4344-4 #### [facility] CLIA [id number] [facility] RESPIRATORY THERAPY [address] [address] pH (BldV) 7.37 [pH] Normal 7.32-7.42 [facility] Comment on above: Order Comment: Speci men Type: VENOUS BLOOD SPECIMEN Ordering Facility: [facility] Address: [address] [address] Performed By: #### 2 4344-4 #### [facility] CLIA [id number] [facility] RESPIRATORY THERAPY [address] [address] pH adjusted to patient's actual temperature (BldV) Normal [facility] Comment on above: Order Comment: Speci men Type: VENOUS BLOOD SPECIMEN Ordering Facility: [facility] Address: [address] [place] [address] Performed By: #### 2 4344-4 #### [facility] CLIA [id number] [facility] RESPIRATORY THERAPY [address] [address] Potassium [Moles/Vol] 3.5 mmol/L Normal 3.5-5.0 [facility] Comment on above: Order Comment: Speci men Type: VENOUS BLOOD SPECIMEN Ordering Facility: [facility] Address: [address] [place] [address] Performed By: #### 2 4344-4 #### [facility] CLIA [id number] [facility] RESPIRATORY THERAPY [address] [address] HISTORY PHYSICALon HISTORY PHYSICAL HNO ID: [id number] Author: Bruce Burnett DO Service: Hospital Medicine Author Type: Physician Type: HANDP Filed: 12/26/2022 5:33 AM Note Text: HOSPITAL MEDICINE HISTORY AND PHYSICAL EXAM SERVICE DATE: 12/26/2022 SERVICE TIME: 4:50 AM Primary Care Physician: Vero Green APRN.CIRCULAR [employer]WYER HELPER NIGHT AND WEEKEND COVERAGE: After 7pm, please call cross cover pager #[phone] Subjective CHIEF COMPLAINT: scrotal pain HPI: see A/P PAST MEDICAL HISTORY Diagnosis Date Asthma Diverticulitis of intestine with perforation 06/19/2017 H/O heart artery stent HLD (hyperlipidemia) Paroxysmal A-fib (HCC) RLS (restless legs syndrome) STEMI (ST elevation myocardial infarction) (HCC) PAST SURGICAL HISTORY Procedure Laterality Date PAST [...] Smokeless tobacco: Never Tobacco comments: quit in [facility] Vaping Use Vaping Use: Never used Substance Use Topics Alcohol use: No Drug use: Not Currently Types: Marijuana HOME MEDICATIONS: Prior to Admission Medications Prescriptions Last Dose Informant Patient Reported? Taking? Bifidobacterium Infantis (ALIGN) 4 mg cap Yes No Sig: Take by mouth. albuterol HFA (PROVENTIL HFA, VENTOLIN HFA) 90 mcg/actuation inhaler No No Sig: Inhale 2 Puffs as instructed every 4 hours as needed for wheezing/shortness of breath. aspirin, enteric coated (ASPIRIN, ENTERIC COATED) 81 mg EC tablet No No Sig: Take 1 tablet by mouth once daily. atorvastatin (LIPITOR) 80 mg tablet No No Sig: Take 1 tablet by mouth once daily. carbidopa-levodopa (SINEMET 25-100) 25-100 mg per tablet Yes No Sig: Take 1 tablet by mouth daily at bedtime. metoprolol succinate ER (TOPROL XL) 25 mg 24 hr tablet No No Sig: Take 1 tablet by mouth once daily. nitroglycerin sublingual (NITROQUICK) 0.4 mg SL tablet No No Sig: DISSOLVE 1 TABLET UNDER THE TONGUE EVERY 5 MINUTES NEEDED. psyllium husk, with sugar, (METAMUCIL) 3.4 gram packet Yes No Sig: Take 1 Packet by mouth twice daily. Facility-Administered Medications: None ALLERGIES Allergen Reactions Clindamycin Shortness of Breath Dilaudid [Hydromorp* Shortness of Breath Lisinopril Cough REVIEW OF SYSTEM: Review of Systems Constitutional: Positive for chills, fatigue and fever. Negative for diaphoresis. HENT: Negative for congestion, sinus pressure, sinus pain and sore throat. Eyes: Negative for visual disturbance. Respiratory: Negative for chest tightness, shortness of breath and wheezing. Cardiovascular: Negative for chest pain, palpitations and leg swelling. Gastrointestinal: Negative for abdominal distention, abdominal pain, blood in stool, diarrhea, nausea and vomiting. Genitourinary: Positive for scrotal swelling. Negative for difficulty urinating and dysuria. Neurological: Positive for light-headedness. Negative for dizziness and weakness. Objective PHYSICAL EXAM: BP 136/67 Pulse 87 Temp (Src) 98 (Oral) Resp 16 Wt 211 lb (95.7kg) SpO2 93% O2 Therapy: Room Air Physical Exam Vitals and nursing note reviewed. Constitutional: General: He is not in acute distress. Appearance: He is toxic-appearing (mild) and diaphoretic. He is not ill-appearing. HENT: Head: Normocephalic and atraumatic. Mouth/Throat: Mouth: Mucous membranes are moist. Eyes: Conjunctiva/sclera: Conjunctivae normal. Cardiovascular: Rate and Rhythm: Normal rate and regular rhythm. Pulses: Normal pulses. Heart sounds: No murmur heard. No gallop. Pulmonary: Effort: No respiratory distress. Breath sounds: No wheezing or rales. Abdominal: General: There is no distension. Tenderness: There is no abdominal tenderness. There is no guarding. Musculoskeletal: General: No swelling. Skin: General: Skin is warm. Coloration: Skin is pale. Neurological: General: No focal deficit present. Mental Status: He is alert and oriented to person, place, and time. Psychiatric: Mood and Affect: Mood normal. DATA: Diagnostic tests reviewed for today's visit: Most recent labs and imaging results. CBC: Recent Labs 12/25/222122 WBC 7.37 RBC 4.42 HB 13.4 HCT 39.9 PLT 182 MCV 90.3 MCH 30.3 MPV 10.4 Coags: No results for input(s): PT, INR, APTT in the last 24 hours. BMP: Recent Labs 12/25/222122 NA 139 K 4.2 CHLOR 102 CO2 24 BUN 16 CREAT 1.41* GLUC 135* CMP: Recent Labs 12/25/222122 NA 139 K 4.2 CHLOR 102 CO2 24 BUN 16 CREAT 1.41* GLU (more content not included)... Normal [facility] OPERATIVE NOon 12-26-2022 OPERATIVE NO HNO ID: [id number] Author: David Zendejas MD Service: Urology Author Type: Physician Type: Operative Report Filed: 12/26/2022 9:21 AM Note Text: [facility] OPERATIVE NOTE/REPORT DETAIL NAME: Teofilo Maxwell Surgery/Procedure Date: 12/26/2022 Procedure(s): Excisional debridement scrotal necrotizing fasciitis and drainage scrotal abscess Pre-Op/Pre-Procedure Diagnosis: Scrotal Luiz's gangrene Post-Op/Post-Procedure Diagnosis: same Surgeon(s)/Proceduralist (s) and Tumbler Drier Operator(s): Surgeon(s) and Role: * David Zendejas MD - Primary Operative Indications: Teofilo Mawxell is a 67 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 Procedure with risks, benefits and alternatives were reviewed with patient. All questions answered. Patient/guardian gives informed consent to proceed with procedure. Findings: Ruptured posterior scrotal wall abscess with Luiz's gangrene extended from mid perineum onto scrotum for an affected area of 8x8 cm. No urethral or rectal involvement. Anesthesia: General Estimated Blood Loss: 25 cc Specimens: Scrotal abscess Drains: Mine (2), Kessler catheter Complications: None immediate Procedure Narrative: The patient was seen and examined in the pre-operative area. A surgical check in was performed per protocol. The patient was taken back to the operative suite. Anesthesia was administered. The patient was transitioned into a doral lithotomy position per protocol. All pressure points were padded. Prepped and draped in the usual sterile fashion. A time-out was performed. The patient's groin, scrotum, and perineum were inspected. Patient had evidence of a ruptured scrotal wall abscess on the posterior scrotum with some purulent drainage. There was an area of skin necrosis adjacent to this and palpable crepitus in the posterior scrotum tracking into the perineum. The rectum did not appear involved. I placed a 16 Azeri Kessler catheter under sterile conditions on the surgical field. Return of clear yellow urine. 10 mL of sterile water placed in the balloon. I then used a surgical scalpel to make an incision excising the necrotic area of scrotal wall tissue. This was sent for pathology. I then took culture swabs of the abscess cavity. There was a fair bit of necrotic tissue underlying the scrotal wall. I debrided this using sharp dissection. Once all the necrotic tissue had been removed I explored the wound further. There was some tracking into the perineum and this area was explored. No necrosis was noted here. I then explored the wound further onto the scrotal area and this tracked into the left scrotum slightly. Again no necrosis was noted here. I cauterized a few small bleeding vessels and then copiously irrigated the wound using a pulse lavage system. Wound appeared viable at this point and hemostasis was excellent. I placed tube half-inch Mine drains into the wound. 1 I tracked into the left scrotal area and the second 1 was onto the right perineum. These then exited the main surgical incision. I placed #0 silk drain stitches into these. I then packed the wound using a white Kerlix. ABD dressing was applied along with a scrotal support. The patient tolerated the procedure well. Surgical counts were correct. The patient was awoken from anesthesia and transferred to the transport bed without incident. Disposition: The patient was transferred to the PACU in stable condition. Surgical findings were discussed with the patient's available contact per the patient's wishes. Plan of care: Return to inpatient service Dr. Zendejas performed all of the kern and critical portions of the procedure with the anesthesia assistant. Dr. Zendejas was immediately available for all other portions of the procedure. LOG ID: [id number] Incision/Procedure Start Time: 8:20 AM Incision Close/Procedure End Time: 8:55 AM SIGNATURE: David Zendejas MD PATIENT NAME: Teofilo Maxwell DATE: December 26, 2022 TIME: 9:14 AM Normal [facility] SEPSIS LACTATEon 12-26-2022 Lactate [Moles/Vol] 1.2 mmol/L Normal 0.0-2.0 [facility] Comment on above: Order Comment: Speci men Type: BLOOD SPECIMEN Ordering Facility: [facility] Address: [address] [place] [address] Performed By: #### S LACT #### [facility] CLIA [id number] [address] SURGICAL PATHOLOGYon 023 CASE REPORT Normal [facility] Comment on above: Order Comment: Speci men Type: TISSUE SPECIMENOrdering Facility: [facility] Address: [address] [place] [address] Result Comment: Surg ical Pathology Report Case: [id number] Authorizing Provider: David Zendejas MD Collected: 12/26/2022 08:27 AM Ordering Location: [place] [facility] Received: 12/26/2022 11:07 AM Pathologist: Myriam Bernal MD Specimen: ABSCESS, SCROTAL ABSCESS Performed By: #### S ####[facility] [id number] [address] CLINICAL HISTORY Normal [facility] Comment on above: Order Comment: Speci men Type: TISSUE SPECIMENOrdering Facility: [facility] Address: [address] [place] [address] Result Comment: Pre- op diagnosis: Necrotizing soft tissue infection [M79.89] Performed By: #### S ####[facility] [id number] [address] FINAL DIAGNOSIS Normal [facility] Comment on above: Order Comment: Speci men Type: TISSUE SPECIMENOrdering Facility: [facility] Address: [address] [place] [address] Result Comment: Scro dasia abscess, debridement: - Squamous epithelium with associated necrosis, bacterial colonization, acute inflammation and abscess formation. Performed By: #### S ####[facility] [id number] [address] FINAL PERFORMING LAB Normal [facility] Comment on above: Order Comment: Speci men Type: TISSUE SPECIMENOrdering Facility: [facility] Address: [address] Result Comment: Diag nostic interpretation performed at [facility], [address] [place] [address] CLIA# [id number] Flake Or Shred Roll Operator: Tom De M.D. Performed By: #### S ####[facility] [id number] [address] GROSS DESCRIPTION A. ABSCESS Normal [facility] Comment on above: Order Comment: Speci men Type: TISSUE SPECIMENOrdering Facility: [facility] Address: [address] [place], [place] [address] Result Comment: A. R eceived in formalin labeled scrotal abscess are multiple black and green-maxwell ischemic appearing segments of tissue aggregating to 2.8 x 2.4 x 0.4 cm. The specimens are totally submitted in formalin in 1 cassette. Gross examination performed at [facility], [address] [place] [address] KVB December 26, 2022 11:59 AM Performed By: #### S ####[facility] [id number] [address] [place] ALLIED HEALTHon 12-25-2022 ALLIED HEALTH HNO ID: [id number] Author: RT Humphrey(R) Service: Radiology Author Type: Technologist Type: Allied Health Filed: 12/25/2022 9:53 PM Note Text: Radiology Service Progress Note DATE OF SERVICE: December 25, 2022 TIME: 9:52 PM PATIENT IDENTITY VERIFICATION COMPLETED USING TWO (2) STANDARD IDENTIFIERS: Name and Date of confirmed by patient verbally and Name and Date of confirmed by identification band. FALL SCREENING: Has the patient had 2 falls in the last year or 1 fall with injury or currently using an Ambulatory Assistive Device (Walker, Cane, Wheelchair, Crutches, etc.)? Emergency Room Patient: Screened in ED PATIENT GENDER DATA: Male PATIENT RELEVANT IMPLANT DATA REVIEWED: Not Applicable ALLERGIES: Reviewed and unchanged CONTRAST ALLERGY: NO. EXAM: CT -CONTRAST INDUCED NEPHROPATHY RISK FACTORS: Patient age > 60 years CREATININE: Creatinine Date Value Ref Range Status 12/25/2022 1.41 (H) 0.73 - 1.22 mg/dL Final 11/25/2019 1.24 (H) 0.73 - 1.22 mg/dL Final 11/24/2019 1.24 (H) 0.73 - 1.22 mg/dL Final Estimated Glomerular Filtration Rate Date Value Ref Range Status 12/25/2022 55 (L) >=60 mL/min/1.73m? Final Comment: Estimated Glomerular Filtration Rate (eGFR) is calculated using the 2020 CKD-EPI creatinine equation. This equation utilizes serum creatinine, sex, and age as parameters. The creatinine assay has traceable calibration to isotope dilution-mass spectrometry. Refer to KDIGO guidelines for clinical interpretation. In patients with unstable renal function, e.g. those with acute kidney injury, the eGFR may not accurately reflect actual GFR. eGFR- Date Value Ref Range Status 11/25/2019 >60 Final P.O.C.T. RESULTS: POC done: Yes, See Lab Tab December 25, 2022 TREATMENT: N/A PERIPHERAL IV DATA: Inpatient - refer to [facility] documentation RADIOLOGY DEPARTMENT: CT; Exam(s) Completed: Abdomen/Pelvis SIGNATURE: RT Humphrey(R) PATIENT NAME: Teofilo Maxwell DATE: December 25, 2022 TIME: 9:52 PM Normal [facility] Bacteria Bld Culton 12-26-19 23 Bacteria identified Cx Nom (Bld) CULTURE, BLOOD: No growth 5 days Normal [facility] Comment on above: Performed By: #### 6 00-7 #### [facility] CLIA [id number] [address] OF [facility] Performed By: #### 2 4344-4 #### [facility] CLIA [id number] [facility] RESPIRATORY THERAPY [address] [address] CBC W Auto Differential pane l (Bld)on 12-25-2022 Basophils (Bld) [#/Vol] 10*3/uL Normal <0.11 [facility] Comment on above: Order Comment: Speci men Type: BLOOD SPECIMEN Ordering Facility: [facility] Address: [address] [place] [address] Performed By: #### 5 7021-8 #### [facility] CLIA [id number] [address] [place] Basophils/100 WBC (Bld) 0.1 % Normal [facility] Comment on above: Order Comment: Speci men Type: BLOOD SPECIMEN Ordering Facility: [facility] Address: [address] [address] Performed By: #### 5 7021-8 #### [facility] CLIA [id number] [address] [place] Differential cell count method Nom (Bld) Auto Normal [facility] Comment on above: Order Comment: Speci men Type: BLOOD SPECIMEN Ordering Facility: [facility] Address: [address] [place] [address] Performed By: #### 5 7021-8 #### [facility] CLIA [id number] [address] [place] [address] [place] Eosinophils (Bld) [#/Vol] 0.07 10*3/uL Normal <0.46 [facility] Comment on above: Order Comment: Speci men Type: BLOOD SPECIMEN Ordering Facility: [facility] Address: [address] [address] Performed By: #### 5 7021-8 #### [facility] CLIA [id number] [address] Eosinophils/100 WBC (Bld) 0.9 % Normal [facility] Comment on above: Order Comment: Speci men Type: BLOOD SPECIMEN Ordering Facility: [facility] Address: [address] [address] Performed By: #### 5 7021-8 #### [facility] CLIA [id number] [address] Erythrocyte distribution width (RBC) [Ratio] 13.9 % Normal 11.5-15.0 [facility] Comment on above: Order Comment: Speci men Type: BLOOD SPECIMEN Ordering Facility: [facility] Address: [address] [address] Performed By: #### 5 7021-8 #### [facility] CLIA [id number] [address] [place] Hematocrit (Bld) [Volume fraction] 39.9 % Normal 39.0-51.0 [facility] Comment on above: Order Comment: Speci men Type: BLOOD SPECIMEN Ordering Facility: [facility] Address: [address] [place] [address] Performed By: #### 5 7021-8 #### [facility] CLIA [id number] [address] [place] Hemoglobin (Bld) [Mass/Vol] 13.4 g/dL Normal 13.0-17.0 [facility] Comment on above: Order Comment: Speci men Type: BLOOD SPECIMEN Ordering Facility: [facility] Address: [address] [place] [address] Performed By: #### 5 7021-8 #### [facility] CLIA [id number] [address] [place] Immature granulocytes (Bld) [#/Vol] 0.05 10*3/uL Normal <0.10 [facility] Comment on above: Order Comment: Speci men Type: BLOOD SPECIMEN Ordering Facility: [facility] Address: [address] [place] [address] Performed By: #### 5 7021-8 #### [facility] CLIA [id number] [address] Immature granulocytes/100 WBC (Bld) 0.7 % Normal [facility] Comment on above: Order Comment: Speci men Type: BLOOD SPECIMEN Ordering Facility: [facility] Address: [address] [place] [address] Performed By: #### 5 7021-8 #### [facility] CLIA [id number] [address] [place] Lymphocytes (Bld) [#/Vol] 1.64 10*3/uL Normal 1.00-4.00 [facility] Comment on above: Order Comment: Speci men Type: BLOOD SPECIMEN Ordering Facility: [facility] Address: [address] [place] [address] Performed By: #### 5 7021-8 #### [facility] CLIA [id number] [address] Lymphocytes/100 WBC (Bld) 22.3 % Normal [facility] Comment on above: Order Comment: Speci men Type: BLOOD SPECIMEN Ordering Facility: [facility] Address: [address] [place] [address] Performed By: #### 5 7021-8 #### [facility] CLIA [id number] [address] MCH (RBC) [Entitic mass] 30.3 pg Normal 26.0-34.0 [facility] Comment on above: Order Comment: Speci men Type: BLOOD SPECIMEN Ordering Facility: [facility] Address: [address] [place] [address] Performed By: #### 5 7021-8 #### [facility] CLIA [id number] [address] [place] MCHC (RBC) [Mass/Vol] 33.6 g/dL Normal 30.5-36.0 [facility] Comment on above: Order Comment: Speci men Type: BLOOD SPECIMEN Ordering Facility: [facility] Address: [address] [place] [address] Performed By: #### 5 7021-8 #### [facility] CLIA [id number] [address] MCV (RBC) [Entitic vol] 90.3 fL Normal 80.0-100.0 [facility] Comment on above: Order Comment: Speci men Type: BLOOD SPECIMEN Ordering Facility: [facility] Address: [address] [address] Performed By: #### 5 7021-8 #### [facility] CLIA [id number] [address] Monocytes (Bld) [#/Vol] 0.96 10*3/uL High <0.87 [facility] Comment on above: Order Comment: Speci men Type: BLOOD SPECIMEN Ordering Facility: [facility] Address: [address] [place] [address] Performed By: #### 5 7021-8 #### [facility] CLIA [id number] [address] [place] Monocytes/100 WBC (Bld) 13.0 % Normal [facility] Comment on above: Order Comment: Speci men Type: BLOOD SPECIMEN Ordering Facility: [facility] Address: [address] [address] Performed By: #### 5 7021-8 #### [facility] CLIA [id number] [address] [place] [address] [place] Neutrophils (Bld) [#/Vol] 4.64 10*3/uL Normal 1.45-7.50 [facility] Comment on above: Order Comment: Speci men Type: BLOOD SPECIMEN Ordering Facility: [facility] Address: [address] [address] Performed By: #### 5 7021-8 #### [facility] CLIA [id number] [address] OF [facility] Neutrophils/100 WBC (Bld) 63.0 % Normal [facility] Comment on above: Order Comment: Speci men Type: BLOOD SPECIMEN Ordering Facility: [facility] Address: [address] [address] Performed By: #### 5 7021-8 #### [facility] CLIA [id number] [address] [place] Nucleated RBC (Bld) [#/Vol] 10*3/uL Normal <0.01 [facility] Comment on above: Order Comment: Speci men Type: BLOOD SPECIMEN Ordering Facility: [facility] Address: [address] [address] Performed By: #### 5 7021-8 #### [facility] CLIA [id number] [address] [place] Nucleated RBC/100 WBC (Bld) [Ratio] 0.0 /100 WBC Normal [facility] Comment on above: Order Comment: Speci men Type: BLOOD SPECIMEN [facility] [facility] Address: [address] [address] Performed By: #### 5 7021-8 #### [facility] CLIA [id number] [address] Platelet mean volume (Bld) [Entitic vol] 10.4 fL Normal 9.0-12.7 [facility] Comment on above: Order Comment: Speci men Type: BLOOD SPECIMEN Ordering Facility: [facility] Address: [address] [place] [address] Performed By: #### 5 7021-8 #### [facility] CLIA [id number] [address] Platelets (Bld) [#/Vol] 182 10*3/uL Normal 150-400 [facility] Comment on above: Order Comment: Speci men Type: BLOOD SPECIMEN Ordering Facility: [facility] Address: [address] [place] [address] Performed By: #### 5 7021-8 #### [facility] CLIA [id number] [address] RBC (Bld) [#/Vol] 4.42 10*6/uL Normal 4.20-6.00 [facility] Comment on above: Order Comment: Speci men Type: BLOOD SPECIMEN Ordering Facility: [facility] Address: [address] [place] [address] Performed By: #### 5 7021-8 #### [facility] CLIA [id number] [address] WBC (Bld) [#/Vol] 7.37 10*3/uL Normal 3.70-11.00 [facility] Comment on above: Order Comment: Speci men Type: BLOOD SPECIMEN Ordering Facility: [facility] Address: [address] [place] [address] Performed By: #### 5 7021-8 #### [facility] CLIA [id number] [address] Comprehensive metabolic 2000 panelon 12-25-2022 Albumin [Mass/Vol] 3.9 g/dL Normal 3.9-4.9 [facility] Comment on above: Order Comment: Speci men Type: BLOOD SPECIMEN Ordering Facility: [facility] Address: [address] [address] Performed By: #### 2 4323-8 #### [facility] CLIA [id number] [address] [place] ALP [Catalytic activity/Vol] 85 U/L Normal 38-113 [facility] Comment on above: Order Comment: Speci men Type: BLOOD SPECIMEN Ordering Facility: [facility] Address: [address] [address] Performed By: #### 2 4323-8 #### [facility] CLIA [id number] [address] [place] ALT [Catalytic activity/Vol] 26 U/L Normal 10-54 [facility] Comment on above: Order Comment: Speci men Type: BLOOD SPECIMEN Ordering Facility: [facility] Address: [address] [place] [address] Performed By: #### 2 4323-8 #### [facility] CLIA [id number] [address] [place] [address] [place] Anion gap [Moles/Vol] 13 mmol/L Normal 9-18 [facility] Comment on above: Order Comment: Speci men Type: BLOOD SPECIMEN Ordering Facility: [facility] Address: [address] [place] [address] Performed By: #### 2 4323-8 #### [facility] CLIA [id number] [address] [place] AST [Catalytic activity/Vol] 23 U/L Normal 14-40 [facility] Comment on above: Order Comment: Speci men Type: BLOOD SPECIMEN Ordering Facility: [facility] Address: [address] [place] [address] Performed By: #### 2 4323-8 #### [facility] CLIA [id number] [address] [place] [address] [place] Bilirubin [Mass/Vol] 0.8 mg/dL Normal 0.2-1.3 [facility] Comment on above: Order Comment: Speci men Type: BLOOD SPECIMEN Ordering Facility: [facility] Address: [address] [address] Performed By: #### 2 4323-8 #### [facility] CLIA [id number] [address] [place] [address] [place] Calcium [Mass/Vol] 9.4 mg/dL Normal 8.5-10.2 [facility] Comment on above: Order Comment: Speci men Type: BLOOD SPECIMEN Ordering Facility: [facility] Address: [address] [place] [address] Performed By: #### 2 4323-8 #### [facility] CLIA [id number] [address] [place] [address] [place] Chloride [Moles/Vol] 102 mmol/L Normal 97-105 [facility] Comment on above: Order Comment: Speci men Type: BLOOD SPECIMEN Ordering Facility: [facility] Address: [address] [place] [address] Performed By: #### 2 4323-8 #### [facility] CLIA [id number] [address] [place] [address] [place] CO2 [Moles/Vol] 24 mmol/L Normal 22-30 [facility] Comment on above: Order Comment: Speci men Type: BLOOD SPECIMEN Ordering Facility: [facility] Address: [address] [place] [address] Performed By: #### 2 4323-8 #### [facility] CLIA [id number] [address] [place] [address] [place] Creatinine [Mass/Vol] 1.41 mg/dL High 0.73-1.22 [facility] Comment on above: Order Comment: Speci men Type: BLOOD SPECIMEN Ordering Facility: [facility] Address: [address] [place] [address] Performed By: #### 2 4323-8 #### [facility] CLIA [id number] [address] [place] [address] [place] ESTIMATED GLOMERULAR FILTRATION RATE 55 mL/min/1.73m??? Low >=60 [facility] Comment on above: Order Comment: Speci men Type: BLOOD SPECIMEN Ordering Facility: [facility] Address: [address] [address] Result Comment: Asha mated Glomerular Filtration Rate (eGFR) is calculated using the 2020 CKD-EPI creatinine equation. This equation utilizes serum creatinine, sex, and age as parameters. The creatinine assay has traceable calibration to isotope dilution-mass spectrometry. Refer to KDIGO guidelines for clinical interpretation. In patients with unstable renal function, e.g. those with acute kidney injury, the eGFR may not accurately reflect actual GFR. Performed By: #### 2 4323-8 #### [facility] CLIA [id number] [address] [place] [address] [place] Glucose [Mass/Vol] 135 mg/dL High 74-99 [facility] Comment on above: Order Comment: Hilda hayden Type: BLOOD SPECIMEN Ordering Facility: [facility] Address: [address] [place] [address] Result Comment: The [place] Diabetes Association (ADA) provides guidance for cutoff values for fasting glucose and random glucose. The ADA defines fasting as no caloric intake for at least 8 hours. Fasting plasma glucose results between 100 to 125 mg/dL indicate increased risk for diabetes (prediabetes). Fasting plasma glucose results greater than or equal to 126 mg/dL meet the criteria for diagnosis of diabetes. In the absence of unequivocal hyperglycemia, results should be confirmed by repeat testing. In a patient with classic symptoms of hyperglycemia or hyperglycemic crisis, random plasma glucose results greater than or equal to 200 mg/dL meet the criteria for diagnosis of diabetes. Reference: Standards of Medical Care in Diabetes 2016, [place] [employer] Association. Diabetes Care. 2016.39(Suppl 1). Performed By: #### 2 4323-8 #### [facility] CLIA [id number] [address] [place] [address] [place] Potassium [Moles/Vol] 4.2 mmol/L Normal 3.7-5.1 [facility] Comment on above: Order Comment: Hilda hayden Type: BLOOD SPECIMEN Ordering Facility: [facility] Address: [address] [place], [place] [address] Performed By: #### 2 4323-8 #### [facility] CLIA [id number] [address] [place] [address] [place] Protein [Mass/Vol] 7.8 g/dL Normal 6.3-8.0 [facility] Comment on above: Order Comment: Speci men Type: BLOOD SPECIMEN Ordering Facility: [facility] Address: [address] [address] Performed By: #### 2 4323-8 #### [facility] CLIA [id number] [address] Sodium [Moles/Vol] 139 mmol/L Normal 136-144 [facility] Comment on above: Order Comment: Speci men Type: BLOOD SPECIMEN Ordering Facility: [facility] Address: [address] [address] Performed By: #### 2 4323-8 #### [facility] CLIA [id number] [address] Urea nitrogen [Mass/Vol] 16 mg/dL Normal 9-24 [facility] Comment on above: Order Comment: Speci men Type: BLOOD SPECIMEN Ordering Facility: [facility] Address: [address] [address] Performed By: #### 2 4323-8 #### [facility] CLIA [id number] [address] ED NOTEon 12-25-2022 ED NOTE HNO ID: [id number] Author: Lm Sewell RN Service: Nursing Author Type: Registered Nurse Type: ED Notes Filed: 12/25/2022 7:39 PM Note Text: T states he started to develop an abscess on his scrotum Saturday that he originally thought was an ingrown hair. Pt states it has grown significantly in size since then and is about 2-3 inches wide. Pt states he has some brown drainage coming from it. PCP sent pt over due to location and size. Normal [facility] ED PROV NOTEon 12-25-2022 ED PROV NOTE HNO ID: [id number] Author: Rocco Garcia MD Service: ? Author Type: Physician Type: ED Provider Notes Filed: 12/25/2022 11:56 PM Note Text: ED Provider Note Patient Name: Teofilo Maxwell : 1955 SERVICE DATE: 12/25/22 History Patient presents with: Abscess: On scrotum History provided by: Patient audit clerk used: No Abscess Location: Pelvis Pelvic abscess location: Perineum Size: 6cm Abscess quality: draining, induration, painful, redness and weeping Red streaking: no Duration: 4 days Progression: Worsening Pain details: Severity: Severe Timing: Constant Progression: Unchanged Chronicity: New Context: not diabetes Relieved by: Nothing Worsened by: Nothing Ineffective treatments: None tried Associated symptoms: no anorexia, no fatigue and no fever PAST MEDICAL HISTORY Diagnosis Date Asthma Diverticulitis of intestine with perforation 06/19/2017 H/O heart artery stent HLD (hyperlipidemia) Paroxysmal A-fib (HCC) RLS (restless legs syndrome) STEMI (ST elevation myocardial infarction) (HCC) PAST SURGICAL HISTORY Procedure Laterality Date PAST [...] Smokeless tobacco: Never Tobacco comments: quit in [facility] Vaping Use Vaping Use: Never used Substance and Sexual Activity Alcohol use: No Drug use: Not Currently Types: Marijuana Sexual activity: Yes Partners: Female ALLERGIES Allergen Reactions Dilaudid [Hydromorp* Shortness of Breath Lisinopril Cough Review of Systems Constitutional: Negative for fatigue and fever. HENT: Negative. Eyes: Negative. Respiratory: Negative. Cardiovascular: Negative. Gastrointestinal: Negative. Negative for anorexia. Genitourinary: Negative. Musculoskeletal: Negative. Skin: Negative. Allergic/Immunologic: Negative. Neurological: Negative. Hematological: Negative. Psychiatric/Behavioral: Negative. Physical Exam Vitals [12/25/221932] BP Pulse Temp Temp src Resp SpO2 Weight Height 138/89 (!) 106 36.9 ?C (98.5 ?F) Oral 20 97 % 95.7 kg (211 lb) -- Physical Exam Vitals and nursing note reviewed. Constitutional: Appearance: He is well-developed. HENT: Head: Normocephalic and atraumatic. Right Ear: External ear normal. Left Ear: External ear normal. Nose: Nose normal. Eyes: General: Lids are normal. Lids are everted, no foreign bodies appreciated. Conjunctiva/sclera: Conjunctivae normal. Pupils: Pupils are equal, round, and reactive to light. Neck: Trachea: Trachea normal. Cardiovascular: Rate and Rhythm: Regular rhythm. Tachycardia present. Heart sounds: Normal heart sounds. Pulmonary: Effort: Pulmonary effort is normal. Breath sounds: Normal breath sounds. Abdominal: General: Bowel sounds are normal. There is no distension. Palpations: Abdomen is soft. Musculoskeletal: General: Normal range of motion. Right shoulder: Normal. Left shoulder: Normal. Cervical back: Normal range of motion and neck supple. No deformity. Thoracic back: No deformity. Right ankle: Normal. Left ankle: Normal. Lymphadenopathy: Cervical: No cervical adenopathy. Skin: General: Skin is warm and dry. Neurological: Mental Status: He is alert and oriented to person, place, and time. GCS: GCS eye subscore is 4. GCS verbal subscore is 5. GCS motor subscore is 6. Cranial Nerves: No cranial nerve deficit. Sensory: No sensory deficit. Deep Tendon Reflexes: Reflexes are normal and symmetric. Psychiatric: Attention and Perception: Attention and perception normal. 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 Its large about 6 to 7 cm in size. He has had ingrown hairs before. Saw his primary care doctor who referred him to the ER. It looks like it is sort of oozing slightly on its own. A lot of pain and discomfort no fevers or chills he is on Eliquis because of cardiac stents. He is not diabetic there is no obvious immunosuppression he does have a history of paroxysmal A-fib. Physical exam afebrile vital signs tachycardic otherwise unremarkable Cardiac tachycardic S1-S2 no rubs murmu (more content not included)... Normal [facility] Gas and Carbon monoxide pane l (BldV)on 12-25-2022 BASE DEFICIT, VENOUS -1 mmol/L Normal -2-0 [facility] Comment on above: Order Comment: Speci men Type: VENOUS BLOOD SPECIMEN Ordering Facility: [facility] Address: [address] [place] [address] Performed By: #### 2 4344-4 #### [facility] CLIA [id number] [facility]ORY [facility]ERAP[facility] [address] [address] Carboxyhemoglobin (BldV) [Mass fraction] 1.5 % Normal 0.0-2.0 [facility] Comment on above: Order Comment: Speci men Type: VENOUS BLOOD SPECIMEN Ordering Facility: [facility] Address: [address] [place] [address] Result Comment: Carb oxyhemoglobin Reference Range for Smokers: 2.0-8.0% Performed By: #### 2 4344-4 #### [facility] CLIA [id number] [facility] [address] [address] CO2 (BldV) [Partial pressure] 43 mm[Hg] Normal 42-55 [facility] Comment on above: Order Comment: Speci men Type: VENOUS BLOOD SPECIMEN Ordering Facility: [facility] Address: [address] [place] [address] Performed By: #### 2 4344-4 #### [facility] CLIA [id number] [facility]ORY THERAPY [address] [address] CO2 adjusted to patient's actual temperature (BldV) [Partial pressure] Normal [facility] Comment on above: Order Comment: Speci men Type: VENOUS BLOOD SPECIMEN Ordering Facility: [facility] Address: [address] [place] [address] Performed By: #### 2 4344-4 #### [facility] CLIA [id number] [facility]IR[facility]ORY THERAPY [address] [address] HCO3 (Bld) [Moles/Vol] 24 mmol/L Normal 24-28 [facility] Comment on above: Order Comment: Speci men Type: VENOUS BLOOD SPECIMEN Ordering Facility: [facility] Address: [address] [address] Performed By: #### 2 4344-4 #### [facility] CLIA [id number] [facility] RESPIRATORY THERAPY [address] [address] Hemoglobin (Bld) [Mass/Vol] 14.7 g/dL Normal 13.0-17.0 [facility] Comment on above: Order Comment: Speci men Type: VENOUS BLOOD SPECIMEN Ordering Facility: [facility] Address: [address] [address] Performed By: #### 2 4344-4 #### [facility] CLIA [id number] [facility] RESPIRATORY THERAPY [address] [address] Lactate [Moles/Vol] 2.3 mmol/L High 0.5-2.2 [facility] Comment on above: Order Comment: Speci men Type: VENOUS BLOOD SPECIMEN Ordering Facility: [facility] Address: [address] [address] Performed By: #### 2 4344-4 #### [facility] CLIA [id number] [facility] RESPIRATORY THERAPY [address] [address] O2 THERAPY RA=Room Air Normal [facility] Comment on above: Order Comment: Speci men Type: VENOUS BLOOD SPECIMEN Ordering Facility: [facility] Address: [address] [address] Performed By: #### 2 4344-4 #### [facility] CLIA [id number] [facility] RESPIRATORY THERAPY [address] [address] Oxygen (BldV) [Partial pressure] mm[Hg] Low 35-45 [facility] Comment on above: Order Comment: Speci men Type: VENOUS BLOOD SPECIMEN Ordering Facility: [facility] Address: [address] [address] Performed By: #### 2 4344-4 #### [facility] CLIA [id number] [facility] RESPIRATORY THERAPY [address] [place] [address] Oxygen adjusted to patient's actual temperature (BldV) [Partial pressure] Normal [facility] Comment on above: Order Comment: Speci men Type: VENOUS BLOOD SPECIMEN Ordering Facility: [facility] Address: [address] [address] Performed By: #### 2 4344-4 #### [facility] CLIA [id number] [facility] RESPIRATORY THERAPY [address] [address] Oxyhemoglobin (BldV) [Mass fraction] 32 % Low 60-85 [facility] Comment on above: Order Comment: Speci men Type: VENOUS BLOOD SPECIMEN Ordering Facility: [facility] Address: [address] [address] Performed By: #### 2 4344-4 #### [facility] CLIA [id number] [facility] RESPIRATORY THERAPY [address] [address] pH (BldV) 7.37 [pH] Normal 7.32-7.42 [facility] Comment on above: Order Comment: Speci men Type: VENOUS BLOOD SPECIMEN Ordering Facility: [facility] Address: [address] [address] Performed By: #### 2 4344-4 #### [facility] CLIA [id number] [facility] RESPIRATORY THERAPY [address] [address] pH adjusted to patient's actual temperature (BldV) [facility] Comment on above: Order Comment: Speci men Type: VENOUS BLOOD SPECIMEN Ordering Facility: [facility] Address: [address] [address] Performed By: #### 2 4344-4 #### [facility] CLIA [id number] [facility] RESPIRATORY THERAPY [address] [address] Potassium [Moles/Vol] 3.7 mmol/L Normal 3.5-5.0 [facility] Comment on above: Order Comment: Speci men Type: VENOUS BLOOD SPECIMEN Ordering Facility: [facility] Address: [address] [address] Performed By: #### 2 4344-4 #### [facility] CLIA [id number] [facility] RESPIRATORY THERAPY [address] [address] Vital Signs Date Time Vital Sign Value Performing Clinician Yana steward 05-13-2023 14:35-0500 Body height 185.42 cm [facility] 05-13-2023 14:35-0500 Body mass index (BMI) [Ratio] 28.2 kg/m2 [facility] 05-13-2023 14:35-0500 Body weight 97.06 kg [facility] 05-13-2023 14:35-0500 Diastolic blood pressure 80 mm[Hg] [facility] 05-13-2023 14:35-0500 Heart rate 64 /min [facility] 05-13-2023 14:35-0500 Respiratory rate 18 /min [facility] 05-13-2023 14:35-0500 SaO2% (BldA) [Mass fraction] 96 % [facility] 05-13-2023 14:35-0500 Systolic blood pressure 138 mm[Hg] [facility] 01-14-2023 11:06-0400 Body height 185.4 cm David Zendejas MD Work Phone: [facility] 01-14-2023 11:06-0400 Diastolic blood pressure 77 mm[Hg] David Zendejas MD Work Phone: [facility] 01-14-2023 11:06-0400 Respiratory rate 18 /min David Zendejas MD Work Phone: [facility] 01-14-2023 11:06-0400 Systolic blood pressure 132 mm[Hg] David Zendejas MD Work Phone: [facility] Encounters Encounter Date Encounter Type Care Provider Facility Start: 03-06-2024 End: 03-06-2024 ambulatory Vero Green [facility]IS[facility] Facility:[facility] Start: 12-02-2023 End: 12-02-2023 ambulatory Vero Green HOME VISITOR [facility] [employer] START Facility:[facility] Start: 08-22-2023 End: 08-22-2023 ambulatory Vero Green HOME VISITOR [employer] START Facility:[facility] Start: 05-13-2023 End: 05-13-2023 Patient encounter procedure [facility], Specimen Work Phone: Start: 05-13-2023 End: 05-13-2023 ambulatory Vero Green HOME VISITOR [employer] START [facility] Work Phone: Start: 01-14-2023 End: 01-14-2023 ambulatory DAVID ZENDEJAS Facility:[facility] Start: 01-14-2023 End: 01-14-2023 Patient encounter procedure David Zendejas MD Work Phone: [facility] Comment on above: Scrotal abscess (Katy david Dx) Start: 01-04-2023 End: 01-04-2023 ambulatory MICAELA GAITAN Facility:[facility] Start: 01-02-2023 Telephone encounter Seven Zendejas MD Work Phone: Urology Comment on above: er follow up Start: 12-28-2022 Telephone encounter Kenia Abdi lon Work Phone: [facility] Comment on above: Home Care (CONFIRMAT ION CALL) Start: 12-26-2022 End: 12-29-2022 Evaluation and management of inpatient VERO GREEN Facility:[facility] Start: 12-25-2022 End: 12-26-2022 Emergency department patient visit VERO GREEN Facility:[facility] Start: 06-11-2017 Ambulatory [facility] Plan of Treatment Date Care Activity Detail Author Start: 12-29-2025 DIABETES SCREEN DIABETES SCREEN [facility] Start: 12-28-2025 DIABETES SCREEN DIABETES SCREEN [facility] Start: 11-20-2024 LIPID SCREEN LIPID SCREEN [facility] Start: 03-01-2023 Influenza vaccination [facility] Start: 08-21-2022 COLORECTAL CANCER SCREENING COLORECTAL CANCER SCREENING [facility] Start: 08-21-2022 [facility] Start: 07-01-2022 ADVANCE DIRECTIVE DISCUSSION ADVANCE DIRECTIVE DISCUSSION [facility] Start: 07-01-2022 DEPRESSION ASSESSMENT DEPRESSION ASS ESSMENT [facility] Start: 2010 PROSTATE CANCER SCRE ENING DISCUSSION PROSTATE CANCER SCREENING DISCUSSION [facility] Start: 2005 SHINGRIX VACCINE (1 of 2) SHINGRIX V ACCINE (1 of 2) [facility] Start: 2000 COLOGUARD (FIT-DNA) COLOGUARD (FIT-D NA) [facility] Start: 2000 Colonoscopy COLONOSCOPY [facility] Start: [address] COLONOGRAPHY [facility] Start: 2000 FECAL OCCULT BLOOD FECAL OCCULT BLOO D [facility] Start: 1974 Urine microalbumin profile DTAP,TDAP ,TD (1 - Tdap) [facility] Start: 1973 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 Payers Date Payer Category Payer Medicaid [id number] 2023 Unknown [id number] 2023 Self-pay 2022 Medicare [facility] MEDICARE [facility] DUAL COMPLETE HMO POS SNP [id number] 2022-Present [phone] [address] [place] [address] Medicare [id number] 2022 Unknown [id number] 2020 Medicaid MEDICAID [facility] MEDICAID [id number] 2020-Present [phone] [address] [place] [address] Medicaid [id number] Unknown [id number] Unknown [id number] Unknown [id number] Unknown [id number] Social History Date Type Detail Facility Start: 01-04-2021 [facility] Work Phone: History of tobacco use Cigarette Smoker C [facility] Work Phone: Start: 01-04-2021 End: 12-26-2022 Cigarettes smoked current (pack per day) - Reported 0.1 [facility] Work Phone: Start: 01-04-2021 Tobacco use and exposure Smokeless tobacco non-user [facility] Work Phone: Start: 12-26-2022 End: 01-14-2023 Alcohol intake Current non-drinker of alcohol (finding) [facility] Start: 11-24-2019 History SDOH Financial 5 [facility] Start: 07-05-2017 Tobacco Comment quit in [facility] hosp[facility] Start: 1955 Sex Assigned At Male C [facility] Start: 12-26-2022 End: 01-14-2023 Tobacco use panel [facility] Work Phone: How hard is it for y ou to pay for the very basics like food, housing, medical care, and heating Not hard at all [facility] Work Phone: (I/We) worried whejohann er (my/our) food would run out before (I/we) got money to buy more. DK or Refused [facility] Work Phone: Start: 05-13-2023 [facility] Clinical Notes 08-20-2017 to 01-14-2023 David Zendejas MD - 01/14/2023 11:15 AM EDTTelephone Encounter - Chon Durán Coord - 01/02/2023 10:07 AM EDTTelephone Encounter - Chon Durán Coord - 01/02/2023 9:50 AM EDT Note Date & Type Note Facility 01-14-2023 Note HNO ID: [id number] Author: David Zendejas MD Service: ? Author Type: Physician Type: Progress Notes Filed: 01/14/2023 11:26 AM Note Text: [facility] ESTABLISHED PATIENT NOTE PATIENT: Teofilo Maxwell (67 year old) PCP: Vero Green, TELMA.CIRCULAR SAWYER HELPER DATE OF SERVICE: 01/14/2023 ASSESSMENT: 1. Scrotal [...] legs syndrome) STEMI (ST elevation myocardial infarction) ([facility]) PAST SURGICAL HISTORY Procedure Laterality Date PAST [...] Smokeless tobacco: Never Tobacco comments: quit in [facility] Vaping Use Vaping Use: Never used Substance Use Topics Alcohol use: No Drug use: Not Currently Types: Marijuana PHYSICAL EXAMINATION: BP 132/77 Resp 18 Ht 185.4 cm (6' 1) BMI 28.04 kg/m? Genitourinary: Posterior scrotal surgical [...] - 1.22 m (more content not included)... [facility] 01-14-2023 History of Presen t illness Narrative [facility] ESTABLISHED PATIENT NOTE PATIENT: Teofilo Maxwell (67 year old) PCP: Vero Green APRN.CNP DATE OF SERVICE: 01/14/2023 ASSESSMENT: 1. Scrotal [...] legs syndrome) STEMI (ST elevation myocardial infarction) ([facility]) PAST SURGICAL HISTORY Procedure Laterality Date PAST [...] Smokeless tobacco: Never Tobacco comments: quit in [facility] Vaping Use Vaping Use: Never used Substance Use Topics Alcohol use: No Drug use: Not Currently Types: Marijuana PHYSICAL EXAMINATION: BP 132/77 Resp 18 Ht 185.4 cm (6' 1) BMI 28.04 kg/m Genitourinary: Posterior scrotal surgical [...] MD Staff Urologist documented in this encounter [facility] 01-04-2023 Note HNO ID: [id number] Author: Micaela Gaitan PA-C Service: ? Author Type: Physician Tumbler Drier Operator Type: Progress Notes Filed: 01/04/2023 11:39 AM Note Text: ESTABLISHED PATIENT OFFICE VISIT HISTORY OF PRESENT ILLNESS: Teofilo Maxwell is a 67 year old male, Ht 185.4 cm (6' 1) BMI 28.04 kg/m2 with a PMH significant [...] (no units) Date Value 11/22/2019 Trace Specific Worthing, Ur (no units) Date Value 11/22/2019 >1.045 [...] legs syndrome) STEMI (ST elevation myocardial infarction) ([facility]) FAMILY HISTORY Problem Relation Age of Onset Heart Mother Kidney Disease Mother other (heart attack at age 67) Mother other (valve replacement) Mother other (unknown history) Father Social History Tobacco Use Smoking status: Every Day Packs/day: 0.10 Types: Cigarettes Smokeless tobacco: Never Tobacco comments: quit in [facility] Vaping Use Vaping Use: Never used Substance [...] as directed Follow up with dr. Sy Gaitan PA-C I spent a total of 20 minutes on the date of the service which included preparing to see the patient, [id number] patient care, completing clinical documentation, performing a medically appropriate examination, counseling and educating the patient/family/caregiver, and ordering medications, tests, or procedures. [facility] 01-02-2023 Miscellaneous Notes Spoke with patients , appt for this Saturday for drain removal, and follow up on 01/[address] Zendejas. They are aware of all Chon Briggs Patient called to [facility] follow up for scrotal abscess with you. Your first available is not till 01/14/2023. How soon do you need to see patient? Chon Briggs documented in this encounter [facility] 12-29-2022 Note HNO ID: [id number] Author: Shazia Singh RN Service: Care Management Author Type: Registered Nurse Type: Care Mgt Progress Note Filed: 12/29/2022 11:12 AM Note Text: CARE MANAGEMENT PROGRESS NOTE SERVICE DATE: 12/29/2022 SERVICE TIME: 10:23 AM LOS: 3 days IMM Follow Up Copy Given: Yes Copy given to:: Patient Commercial Reporter Commercial Reporter Name/Relationship: Reyna Maxwell/ Spouse Method: By Phone (Verbal confirmation obtained) SIGNATURE: Shazia Singh RN PATIENT NAME: Teofilo Maxwell DATE: December 29, 2022 TIME: 11:12 AM PAGER/CONTACT #: [phone] [facility] 12-29-2022 Note HNO ID: [id number] Author: Shazia Singh RN Service: Care Management [...] Spoke with patient's spouse Reyna via phone ([phone]). Explained care management role. Plan is for [...] 29, 2022 TIME: 11:04 AM CONTACT #: [id number] [facility] 12-29-2022 Note HNO ID: [id number] Author: Dustin Hale DO Service: Hospital Medicine Author Type: Physician Type: Progress Notes Filed: 12/29/2022 8:08 AM Note Text: DEPARTMENT OF HOSPITAL MEDICINE PROGRESS NOTE SERVICE DATE: 12/29/2022 SERVICE TIME: 7:58 AM [facility] 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 Disposition: Home with [facility] Functional Status Prior to Admit: Medical Necessity for Continued Hospitalization DC Plan of care discussed with: Provider, RN, Patient Urology SIGNATURE: Dustin Hale DO PATIENT NAME: Teofilo Maxwell DATE: December 29, 2022 TIME: 7:58 AM PAGER/CONTACT #: Team color pager Disclaimer: Portions of this note may have been generated using Ambric voice recognition software. Reasonable efforts were made to correct any dictation err (more content not included)... [facility] 12-29-2022 Note HNO ID: [id number] Author: Yogesh Sheppard MD Service: Urology Author [...] (Oral) Resp 18 Ht 185.4 cm (6' 1) Wt 96.4 kg (212 lb 8 oz) SpO2 95% BMI 28.04 kg/m? 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 I agree with the assessment and plan as documented in the resident?s note. Signature: Yogesh Sheppard MD Date: 12/29/2022 Time: 9:56 AM [facility] 12-28-2022 Miscellaneous Notes Summary: ATTEMPTED CONFIRMATION CALL Kenia Chandra December 28, 2022 4:38 PM Left voicemail messages for the patient at [phone] and patient's , Reyna Maxwell, at [phone] requesting a return call from either of them. documented in this encounter [facility] 12-28-2022 Note HNO ID: [id number] Author: Dutsin Hale DO Service: Hospital Medicine Author Type: Physician Type: Progress Notes Filed: 12/28/2022 2:41 PM Note Text: DEPARTMENT OF HOSPITAL MEDICINE PROGRESS NOTE SERVICE DATE: 12/28/2022 SERVICE TIME: 9:33 AM Hospital Medicine/Primary Attending: Dustin Hale DO NIGHT AND WEEKEND COVERAGE: After 7pm please page [phone] CHIEF COMPLAINT: Follow up on MMP SUBJECTIVE: [...] the last 24 hours. BMP: Recent Labs 12/28/22 0432 NA 141 K 4.0 CHLOR 106* CO2 [...] hours. Liver Function, Amylase, Lipase: Recent Labs 12/28/22 0432 TPROT 5.8* ALB 2.9* ALT 31 AST 29 ALKPHOS 69 TBILI 0.3 MG/PHOS: No results for input(s): MG, P in the last 24 hours. Renal Panel: Recent Labs 12/28/22 0432 CREAT 1.38* BUN 14 GLUC 116* CA [...] Assessment/Plan POD # 2 s/p IANDD of Luiz's gangrene with sepsis- Did have allergic reaction [...] VTE Prophylaxis/Anticoagulants 12/27/22 1000 pneumatic compression stockings (fl,oh) Lines, Drains, and Airways Line Duration Peripheral 12/25/22 [facility] Short Right Forearm 20 Gauge 3 days Peripheral 12/26/22 [facility] Short Left Hand 20 Gauge 2 days Drain Duration Drain/Tube 12/26/22 0851 Mine Scrotum 2 days Drain/Tube 12/26/22 0851 Perineal Area 2 days Indwelling Urinary Catheter 12/26/22 [facility] Kessler 2 days VTE Prophylaxis: Pneumatic Compressio (more content not included)... [facility] 12-28-2022 Note HNO ID: [id number] Author: Chidi Heller MD Service: Urology Author [...] (Oral) Resp 18 Ht 185.4 cm (6' 1) Wt 96.4 kg (212 lb 8 oz) SpO2 94% BMI 28.04 kg/m? I AND O - 24hr: Intake/Output Summary (Last 24 hours) at 12/28/2022 075 Last data filed at 12/28/2022 0457 Gross per 24 hour Intake 660 ml Output 1500 ml Net -840 ml Physical Exam: General: Neck: Resp: Abdomen: No acute distress Supple Normal effort Soft non tender, nondistended : Kessler draining clear yellow urine, packing in scrotum, 2 mine drains, skin edges pink and viable Labs and Imaging Studies LABS: BMP: Recent Labs 12/28/22 0432 12/27/22 0538 12/25/222122 NA 141 142 139 K 4.0 3.9 4.2 CHLOR 106* 107* 102 CO2 BUN 14 12 16 CREAT 1.38* 1.24* 1.41* GLUC 116* 132* 135* CBC: Recent Labs 12/28/222 12/27/22 0538 12/26/2252312/25/222122 WBC 6.50 8.41 5.00 7.37 HB 10.0* 10.1* 11.2* 13.4 HCT 30.9* 30.7* 32.9* 39.9 PLT 174 181 167 182 Urinalysis: Specific Worthing, Ur Date Value Ref Range Status 11/22/2019 [...] Assessment/Plan ASSESSMENT: 67 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 PLAN: -wound looks good, wound care on board, appreciate recs -wound culture - Ng1d prelim -continue IV abx per ID - linezolid, meropenem -BID wet to dry dressing changes -active void trial today (ordered) -labs reviewed - stable -will be discharged with mine drains in place -recommend holding Eliquis for one week, ok to restart on January 02 -page 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 with 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 or concerns Jose Heller MD Urology, PGY-4 December 28, 2022 7:53 AM Page 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 with questions [facility] 12-27-2022 Note HNO ID: [id number] Author: Dustin Hale DO Service: Hospital Medicine Author Type: Physician Type: Progress Notes Filed: 12/27/2022 1:41 PM Note Text: DEPARTMENT OF HOSPITAL MEDICINE PROGRESS NOTE SERVICE DATE: 12/27/2022 SERVICE TIME: 9:45 AM Hospital Medicine/Primary Attending: Dustin Hale DO NIGHT AND WEEKEND COVERAGE: After 7pm please page [phone] CHIEF COMPLAINT: Follow up on MMP SUBJECTIVE: [...] Assessment/Plan POD # 1 s/p IANDD of Luiz's gangrene with sepsis- Did have allergic reaction [...] Drains, and Airways Line Duration Peripheral 12/25/22 [facility] Short Right Forearm 20 Gauge 2 days Peripheral 12/26/22 Cl (more content not included)... 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 PLAN: -doing well, pains controlled -wound pink and viable, no need for further debridment at this time -continue IV abx per primary - linezolid, meropenem -wound care consult -BID wet to dry dressing changes -page 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 with 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 or 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 Michelle Gonzales MD Urology PGY1 12/27/2022 7:56 AM -Page 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 with questions or concerns TEACHING PROVIDER [...] Francine Maya Date: 12/29/2022 Time: 10:12 AM [facility] 12-26-2022 Note HNO ID: [id number] Author: Sveta Baeza APRN.NUTRITION EDUCATOR Service: Anesthesiology Author Type: Nurse Key Account Executive Type: Anesthesia Procedure Notes Filed: 12/26/2022 8:41 AM Note Text: ANESTHESIOLOGY PROCEDURE NOTE Airway General Information Procedure Start Time/Medication Administration: 12/26/2022 8:11 AM Patient location during procedure: OR Timeout Performed Pre-procedure: timeout performed Consent Obtained: Yes Patient identity confirmed: arm band and patient Staffing NUTRITION EDUCATOR: Sveta Baeza APRN.NUTRITION EDUCATOR Performed by: LEONARDO Indications and Patient Condition Indications for airway management: anesthesia Preoxygenated: yes anesthesia circuit Patient position: sniffing Method: asleep Final Airway Details Final airway type: endotracheal airway Final Endotracheal Airway: intubating LMA Cuffed: yes Successful intubation technique: direct laryngoscopy Devices used: [employer] Endotracheal tube insertion site: oral Blade: Avelino Blade size: #4 Measured from: lips Measurement (cm): 22 Placement verified by: chest auscultation and capnometry Cormack-Lehane Classification: grade I - full view of glottis Number of attempts at approach: 1 SIGNATURE: Sveta Baeza APRN.CRNA PATIENT NAME: Teofilo Maxwell DATE: December 26, 2022 TIME: 8:41 AM CSN: [id number] [facility] 12-26-2022 Note HNO ID: [id number] Author: Dustin Hale DO Service: Hospital Medicine Author Type: Physician Type: Progress Notes Filed: 12/26/2022 6:56 AM Note Text: DEPARTMENT OF HOSPITAL MEDICINE PROGRESS NOTE SERVICE DATE: 12/26/2022 SERVICE TIME: 6:52 AM Hospital Medicine/Primary Attending: Dustin Hale DO NIGHT AND WEEKEND COVERAGE: After 7pm please page [phone] CHIEF COMPLAINT: Follow up on MMP SUBJECTIVE: [...] recent labs and radiology results reviewed. Assessment/Plan Luiz's gangrene- plans for OR this AM. Did [...] Drains, and Airways Line Duration Peripheral 12/25/22 [facility] Short Left Antecubital 20 Gauge 1 day Peripheral 12/25/22 [facility] Short Right Forearm 20 Gauge 1 day VTE Prophylaxis: Early Ambulation Disposition: Home Functional Status Prior to Admit: Medical Necessity for Continued Hospitalization MMP Plan of care discussed with: Patient SIGNATURE: Dustin Hale DO PATIENT NAME: Teofilo Maxwell DATE: December 26, 2022 TIME: 6:52 AM PAGER/CONTACT #: Team color pager Disclaimer: Portions of this note may have been generated using Ambric voice recognition software. Reasonable efforts were made to correct any dictation errors that resulted due to the programming of this software but some may still be present. Please note, the time of this note does not reflect the time I saw this patient today, but the time of this document (more content not included)... [facility] 08-20-2017 History of Past i llness Narrative Problem Noted Date Resolved Date Barium enema [...] of this encounter (statuses as of 12/29/2022) [facility]02-[facility]-2018 History of Past illness Narrative* Problem Noted [...] of this encounter (statuses as of 01/02/2023) [facility] History of Past illness Narrative* Problem Noted [...] of this encounter (statuses as of 01/14/2023) [facility] Diagnosis Scrotal abscess- Primary Other inflammatory disorder of male genital organs documented in this encounter [facility] note* Diagnosis Onset Date Resolution Status Anemia acute Atrial fibrillation acute Hyperlipidemia acute Hypertension [facility] Work Phone: Summary Purpose Family History No Family History Records Found Relationship Condition Age at Onset Recorded Date/T carlyn mother Cardiac disease Unknown Advance Directives No Advanced Directives Records FoundDocuments on File Type Date Recorded Patient Commercial Reporter Expl anation Advance Directive(s) 01/28/2020 7:22 AM [...] Comments Full Code Order Discussed With: Patient Chief Complaint and Reason for Visit Chief Complaint medication refills Reason for Visit Anemia Atrial fibrillation Hyperlipidemia Hypertension Additional Source Comments (unrecognized sect ion and content) No Status Records FoundNo Status Records FoundNo Status Records FoundNo Status Records FoundNo Status Records Found INFORMATION SOURCE (unrecogn ized section and content) DATE CREATED AUTHOR 12/24/2017 [facility] DATE CREATED AUTHOR AUTHOR'S ORGANIZ ATION 12/29/2022 [facility] DATE CREATED AUTHOR AUTHOR'S ORGANIZ ATION 03/23/2023 [facility] DATE CREATED AUTHOR AUTHOR'S ORGANIZ ATION 03/23/2023 [facility] DATE CREATED AUTHOR AUTHOR'S ORGANIZ ATION 03/29/2024 [facility] Source Comments (unrecognize d section and content) In the event this informatio n is protected by the Federal Confidentiality of Alcohol and Drug Abuse Patient Records regulations: The Federal rules restrict any use of the information to criminally investigate or prosecute any alcohol or drug abuse patient.[facility] the event this information is protected by the Federal Confidentiality of Alcohol and Drug Abuse Patient Records regulations: The Federal rules restrict any use of the information to criminally investigate or prosecute any alcohol or drug abuse patient.[facility] the event this information is protected by the Federal Confidentiality of Alcohol and Drug Abuse Patient Records regulations: The Federal rules restrict any use of the information to criminally investigate or prosecute any alcohol or drug abuse patient.[facility] Reason for Visit (unrecogniz ed section and content) Reason Comments Home Care CONFIRMATION CALL Reason Comments er follow up Reason Comments scrotal abcess Care Teams (unrecognized sec tion and content) Dielectric Press Operator Relationship Specialty Start Date End Date Vero Green, ACCOUNTS PAYABLES CLERK.CIRCULAR SAWYER HELPER [address] [place] [address] PCP - General Family Medicine 12/25/22 Marcelo Fritz MD [address] [place] [address] Primary Staff Physician Cardiology 01/04/21 Dielectric Press Operator Relationship Specialty Start Date End Date Vero Green, TELMA.CIRCULAR SAWYER HELPER [address] [place], [place] [id number] PCP - General Family Medicine 12/25/22 Marcelo Fritz MD [address] [place] [address] Primary Staff Physician Cardiology 01/04/21 Dielectric Press Operator Relationship Specialty Start Date End Date Vero Green, ACCOUNTS PAYABLES CLERK.CIRCULAR SAWYER HELPER [address] [place], [place] [id number] PCP - General Family Medicine 12/25/22 Marcelo Fritz MD [address] [place] [address] Primary Staff Physician Cardiology 01/04/21 Team Status: Active Member Role Status Dates Vero Green HOME VISITOR HOME BASE HEAD START, HOME VISITOR HOME BASE HEAD START-C Primary Care Provider Active Team Status: Inactive Member Role Status Dates Vero Green HOME VISITOR HOME BASE HEAD START, HOME VISITOR HOME BASE HEAD START-C Attending Provider Active Team Status: Inactive Member Role Status Dates Vero Green HOME VISITOR HOME BASE HEAD START, HOME VISITOR HOME BASE HEAD START-C Primary Care Provider, Attend ing Provider Active Goals (unrecognized section and content) Goals may be documented in a n alternate section FOR RECORDS PERTAINING TO PATIENTS WHO ARE [...] BE BASED ON THE PRIMARY CLINICAL RECORDS. [facility] [employer] [facility]. provides no warranty or guarantee of the accuracy or completeness of information in this document.
[2024-12-17 00:12] LABS: Absolute Neutrophil Count 3.2 X10^3/uL (2.0-7.7); Basophil# 0.03 X10^3/uL; Basophil% 0.5 % (0-1); Eosinophil# 0.32 X10^3/uL; Eosinophils% 5.6 % (0-5); Hematocrit 39.5 % (40-54); Lymphocyte % 26.4 % (19-41); Mean Corp Hgb Conc 32.9 g/dL (32-36); Mean Corpuscular Hgb 28.8 pg (27.0-32.0); Mean Corpuscular Volume 87.6 fL (80-94); Mean Platelet Vol. 12.7 fl (6.2-12.0); Monocyte# 0.66 X10^3/uL; Monocyte% 11.6 % (0-10); NRBC Flagged by Analyzer 0 % (0-5); Neutrophil # 3.15 X10^3/uL (2.7-7.7); Neutrophil % 55.5 % (47-70); Platelet Count 147 K/mm3 (150-450); RBC Distribution Width CV 14.6 % (11.6-14.6); RBC Distribution Width SD 46.9 fl (35.1-43.9); Red Blood Count 4.51 M/mm3 (4.6-6.2); White Blood Count 5.7 K/mm3 (4.4-11.0)
[2024-12-17 00:40] LABS: ALB/GLOB Ratio 1.7 RATIO (0.9-2.4); AST(SGOT) 34 U/L (<=37); Alanine Aminotransfer ALT/SGPT 40 U/L (<=46); Albumin, Serum 4.3 g/dL (3.4-4.8); Alkaline Phosphatase 85 U/L (40-129); Anion Gap 12 (5-15); BUN 13 mg/dL (4-19); BUN/Creat Ratio 10.7 RATIO (10-20); Calcium,Total 9.1 mg/dL (7.6-11.0); Chloride 105 mmol/L (98-108); Creatinine, Serum 1.24 mg/dL (0.70-1.20); EST Glomerular Filtration Rate 63 (>60); Globulin 2.6 g/dL (2.2-4.2); Glucose 99 mg/dL (70-99); Iron 56 ug/dL (65-175); Iron Binding Capacity,Total 332 ug/dL (250-450); Iron Binding Capacity,Unsat 276 ug/dL (228-428); Potassium 4.6 mmol/L (3.3-5.1); Protein, Total 6.9 g/dL (5.9-8.4); Sodium Level 140 mmol/L (133-145); Total Bilirubin 0.66 mg/dL (0.00-1.30)
[2024-12-18 04:07] LABS: Transferrin 285 mg/dL (177-329)
== END | disposition home or self-care (01) ==
PROVIDERS: PCP Nurse Practitioner; Referring Provider Nurse Practitioner; Visit Provider Nurse Practitioner
DX: D69.6 Thrombocytopenia, unspecified (principal); D50.8 Other iron deficiency anemias; D51.8 Other vitamin B12 deficiency anemias; G25.81 Restless legs syndrome; G47.00 Insomnia, unspecified
CPT/HCPCS: 80053; 83540; 83550; 84443; 84466; 85025

== ENCOUNTER → 2025-04-06 | Outpatient (CLI) | payer MEDICARE, MEDICAID, SELFPAY ==
[2025-04-06 22:46] LABS: Hematocrit 42.7 % (40-54); Hemoglobin 14.7 g/dL (13.0-16.5); Immature Granulocytes Count 0.020 X10^3/uL (0.0-0.0); Mean Corp Hgb Conc 34.4 g/dL (32-36); Mean Corpuscular Volume 90.5 fL (80-94); Mean Platelet Vol. 12.4 fl (6.2-12.0); NRBC Flagged by Analyzer 0 % (0-5); Platelet Count 156 K/mm3 (150-450); RBC Distribution Width CV 13.2 % (11.6-14.6); RBC Distribution Width SD 43.5 fl (35.1-43.9); Red Blood Count 4.72 M/mm3 (4.6-6.2); White Blood Count 7.0 K/mm3 (4.4-11.0)
[2025-04-06 23:11] LABS: AST(SGOT) 30 U/L (<=37); Alanine Aminotransfer ALT/SGPT 35 U/L (<=46); Albumin, Serum 4.2 g/dL (3.4-4.8); Alkaline Phosphatase 91 U/L (40-129); Anion Gap 13 (5-15); BUN 11 mg/dL (4-19); BUN/Creat Ratio 9.5 RATIO (10-20); Calcium,Total 9.4 mg/dL (7.6-11.0); Carbon Dioxide 22.4 mmol/L (21.0-32.0); Chloride 103 mmol/L (98-108); Cholesterol 98 mg/dL (<=200); Globulin 3.4 g/dL (2.2-4.2); Glucose 110 mg/dL (70-99); Low Density Lipoprotein Calc. 28 mg/dL; PSA,Total - Annual Screen 5.99 ng/mL (0.02-4.00); Potassium 4.1 mmol/L (3.3-5.1); Triglycerides 192 mg/dL; Very Low Density Lipoprotein 38 mg/dL (5-40); cholesterol:hdl ratio screen 3.11
== END | disposition home or self-care (01) ==
PROVIDERS: PCP Nurse Practitioner; Visit Provider Nurse Practitioner
DX: L02.214 Cutaneous abscess of groin (principal); I48.0 Paroxysmal atrial fibrillation; L98.47 Non-pressure chronic ulcer of groin; E78.2 Mixed hyperlipidemia; I15.9 Secondary hypertension, unspecified; J45.41 Moderate persistent asthma with (acute) exacerbation; Z12.5 Encounter for screening for malignant neoplasm of prostate; R35.0 Frequency of micturition
CPT/HCPCS: 80053; 80061; 84153; 85025; 87070; 87075; 87077; 87186; 87205; G0103